=== PATIENT | female | born 1975 | race Asian ===

== ENCOUNTER 2023-11-02 11:39 | Inpatient (IN) | payer OTHER, MEDICAID, SELFPAY ==
[2023-11-02 11:46] VITALS: BP 120/86; PULSE 87; RESP 19; TEMP 36.6; O2SAT 97; BMI 26.3
--- NOTE | 2023-11-02 11:46 | ED.PSYCH ---
HPI - Psych General Chief Complaint: Psychiatric Symptoms Stated Complaint: Depression Schizophrenia Time Seen by Provider: 11/02/23 13:18 Source: patient Mode of arrival: ambulatory Limitations: no limitations History of Present Illness HPI Narrative: 48-year-old female history of anxiety, depression, polysubstance abuse on methadone recently moved from [place] presenting with anxiety, depression has been worsening. Patient reports she just wants to ?run away ?. She states she feels very overwhelmed and has been having worsening depression. Tells me that this is been ongoing for a few weeks acutely worsening over the past few days. 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 She is here with her recovery auditor and daughter which she trusts and which she considers her support group. Patient denies hallucinations. Denies drinking, smoking, drugs at this time. No medical complaints. Related Data Home Medications Medication Instructions Recorded Confirmed methadone 10 mg/mL oral 45 mg PO DAILY 11/02/23 11/02/23 concentrate (Methadone Intensol) Allergies Allergy/AdvReac Type Severity Reaction Status Date / Time SEAFOOD Allergy Unknown RASH Uncoded 11/02/23 11:46 Review of Systems Review of Systems: Yes all other systems are reviewed and are negative PMFSH Past Medical History Attestation statement: The following information was validated with the patient. Source: old records reviewed and nursing notes reviewed Social History Social History Smoked in Last 30 Days: No Use of substances other than those prescribed or required for medical reasons: No Advance Directives: No Advance Directives Information Provided: No Healthcare Proxy: No Guardian: No Physical Exam Vital Signs: Vital Signs: Last Vital Signs Temp 98 F 11/02/23 11:46 Pulse 87 11/02/23 11:46 Resp 16 11/02/23 12:18 BP 120/86 11/02/23 11:46 Pulse Ox 97 11/02/23 11:46 O2 Del Method Room Air 11/02/23 11:46 BMI result Body Mass Index 26.3 vss Appearance: Alert.? Oriented X3.? No acute distress.? Head: Normocephalic, atraumatic, no step-offs or deformities Eyes: Pupils equal, round and reactive to light.? ENT: Pharynx normal.? Neck: Normal inspection.? Neck supple.? CVS: Normal heart rate and rhythm.? Pulses normal.? Respiratory: No respiratory distress.? Breath sounds normal.? Abdomen: Soft and nontender.? Skin: Skin warm and dry.? Normal skin color.? Normal skin turgor.? Extremities: No lower extremity edema.? No calf ttp. 5/5 strength to bilateral upper and lower extremities Neuro: Oriented X 3.? No motor deficit.? No sensory deficit. CN 2-12 intact Course Course Course Narrative: RME:?48 yo female hx of bipolar., schizophrenia, and depression here for eval of severe depression x1day. admits to not eating, not sleeping. Denies illicit substance use. Denies etoh consumption. Denies SI/HI. taking all home medications as prescribed. her only physical complaint at present is occasional palpitations. denies chest pain or SOB. labs, ua, EKG ordered. plan for medical clearance Full HPI, ROS and PE to be performed by the primary ED provider. Reevaluation(s) Reevaluation #1: Patient was placed on a section 12 by psych. Patient will be an inpatient psychiatric bed search. CBC unremarkable. Chemistry no acute findings. Normal lipase. UA without infection. Urine negative. Urine toxicology negative. Ethanol negative At this time patient to be placed into observation to allow more time to be admitted to the psych unit Time: 15:29 Medications Administered Discontinued Medications Generic Name Dose Route Start Last Admin Trade Name Christianoq PRN Reason Stop Dose Admin Lorazepam 1 mg 11/02/23 14:44 11/02/23 14:48 Lorazepam 1 Mg Tablet PO 11/02/23 14:45 1 mg ONCE ONE Administration Medical Decision Making Medical Decision Making [facility] Narrative: 48 Old female presents with anxiety, depression worsening over the past few weeks. Physical exam benign. Concerns for depression and anxiety. Unlikely metabolic derangements, urinary infection Plan medical clearance evaluation by behavioral health Differential Diagnosis Differential Diagnoses: The differential diagnosis associated with the presentation includes Concerns for depression and anxiety. Unlikely metabolic derangements, urinary infection Admission/Observation Consideration of admission/observation: Escalation of care including admission/observation considered Likely secondary Consult Healthcare Provider Management of the patient was discussed with: Behavioral Health Provider Lab Data [facility] Lab Attestation statement: I reviewed the patient's lab results. 11/02/23 12:54 11/02/23 12:54 Labs: Lab Results 11/02/23 11/02/23 Range/Units 12:13 12:54 WBC 5.6 (4.8-10.8) X10*3/uL RBC 4.54 (4.20-5.50) X10*6/uL Hgb 13.5 (12.0-16.0) g/dl Hct 39.6 (37.0-47.0) % MCV 87.2 (80.0-98.0) fL MCH 29.7 (27.0-33.0) pg MCHC 34.1 (31.0-35.0) g/dl RDW 12.9 (11.0-16.0) % Plt Count 187 (160-400) X10*3/uL MPV 10.2 (9.4-12.3) fL Immature Gran % (Auto) 0.2 (0.0-0.4) % Neut % (Auto) 78.6 H (45-73) % Lymph % (Auto) 16.5 L (20-40) % Rapides % (Auto) 4.1 (2-11) % Eos % (Auto) 0.2 (0-4) % Baso % (Auto) 0.4 (0-2) % Lymph # (Auto) 0.9 L (1.2-4.9) X10*3/uL [place]ides # (Auto) 0.2 (0.1-1.2) X10*3/uL Eos # (Auto) 0.0 (0.0-0.4) X10*3/uL Baso # (Auto) 0.0 (0.0-0.2) X10*3/uL Abs Immat Gran (auto) 0.01 (0.00-0.03) X10*3/uL Absolute Neuts (auto) 4.4 (2.0-8.3) x10*3/uL Absolute Nucleated RBC 0.000 (0.0-0.012) X10*3/uL Nucleated RBC % (auto) 0.0 (0.0-0.2) /100WBC Sodium 138 (135-145) mmol/L Potassium 4.3 (3.3-5.1) mmol/L Chloride 104 (96-108) mmol/L Carbon Dioxide 29 (22-29) mmol/L Anion Gap 9 L (12-20) BUN 13 (9-16) mg/dL Creatinine 0.82 (0.5-1.4) mg/dL Estim Creat Clear Calc 64.1 Estimated GFR > 60 Random Glucose 86 (60-115) mg/dL Calcium 9.6 (8.4-10.2) mg/dL Magnesium 2.0 (1.6-2.6) mg/dL Lipase 18 (8-78) U/L Urine Color Yellow Urine Appearance Clear Urine pH 6.0 (5.0-9.0) Ur Specific [place] 1.010 (1.005-1.025) Urine Protein Negative (Neg-Trace) mg/dL Urine Glucose (UA) Negative (Negative) mg/dL Urine Ketones Negative (Negative) mg/dL Urine Blood Negative (Negative) Urine Nitrite Negative (Negative) Ur Leukocyte Esterase Trace H (Negative) Urine RBC 0-2 (0-2) /HPF Urine WBC 0-5 (0-5) /HPF Ur Squamous Epith Cells 0-2 (0-2) /HPF Urine Bacteria None Seen (None Seen) Hyaline Casts 0-2 (0-2) /LPF Urine Test NEGATIVE (NEGATIVE) Urine Opiates Screen Not Detected (Not Detect) Urine Fentanyl Screen Not Detected (Not Detect) Ur Barbiturates Screen Not Detected (Not Detect) Ur Phencyclidine Scrn Not Detected (Not Detect) Ur Amphetamines Screen Not Detected (Not Detect) U Benzodiazepines Scrn Not Detected (Not Detect) Urine Cocaine Screen Not Detected (Not Detect) U Marijuana (THC) Screen Not Detected (Not Detect) Ethyl Alcohol < 10 mg/dL Chronic Conditions Patient?s care impacted by: Other (Polysubstance abuse) Critical Care Time Critical Care Time Critical Care Time: No Discharge Plan Discharge Clinical Impression: Depression Patient Disposition: Still a Patient Prescriptions: No Action methadone [Methadone Intensol] 10 mg/mL Concentrate 45 mg PO DAILY Interventions: Alice-Suicide Risk Severity Scale Last Done: 11/02/23 12:18
--- NOTE | 2023-11-02 11:49 | ECG_ITS ---
Test Reason : palpitations Blood Pressure : / mmHG Vent. Rate : 079 BPM Atrial Rate : 079 BPM P-R Int : 154 ms QRS Dur : 076 ms QT Int : 374 ms P-R-T Axes : 068 065 048 degrees QTc Int : 428 ms Normal sinus rhythm Possible Left atrial enlargement Borderline ECG No previous ECGs available Referred By: Angelina Purvis Electronically Signed By:PEDRO JEREZ MD
[2023-11-02 12:18] VITALS: RESP 16
[2023-11-02 12:26] LABS: Appearance Urine Clear; Color Urine Yellow; Glucose Urine UA Negative (Negative); Leukocyte Esterase Urine Trace (Negative); Nitrite Urine Negative (Negative); UMIC TRIGGER UACC YES; UPreg QC Valid YES; Urine Blood Negative (Negative); Urine Ketones Negative (Negative); Urine Pregnancy NEGATIVE (NEGATIVE); Urine Protein Negative (Neg-Trace)
--- NOTE | 2023-11-02 12:26 | PC.NURSE ---
Patient awake and alert. skin pwd, resp even and non labored, speaking in full, clear sentences. reports having a hx of anxiety and schizophrenia and over the past 2 days she has been feeling very anxious. also reports auditory hallucinations and states that she can hear children talking. patient denies SI/HI. daughter is now at bedside
[2023-11-02 12:31] LABS: Amphetamine Screen Urine Not Detected (Not Detect); Bacteria Urine None Seen (None Seen); Barbiturates, Urine Not Detected (Not Detect); Benzodiazepines Screen Urine Not Detected (Not Detect); Cannabinoid Screen Urine Not Detected (Not Detect); Cocaine Screen Urine Not Detected (Not Detect); Fentanyl, urine Not Detected (Not Detect); Hyaline Casts Urine 0-2 /LPF (0-2); Opiate Screen Urine Not Detected (Not Detect); Phencyclidine Screen Urine Not Detected (Not Detect); RBC Urine 0-2 /HPF (0-2); Squamous Epithelial Cell Urine 0-2 /HPF (0-2); WBC Urine 0-5 /HPF (0-5)
[2023-11-02 12:58] LABS: MANUAL DIFF FLAG NO
[2023-11-02 13:00] LABS: Basophils Percent Auto 0.4 % (0-2); Eosinophils Percent Auto 0.2 % (0-4); Hematocrit 39.6 % (37.0-47.0); Hemoglobin 13.5 g/dl (12.0-16.0); Imm Gran Abs Auto 0.01 X10*3/uL (0.00-0.03); Imm Gran Pct Auto 0.2 % (0.0-0.4); Lymphocytes Absolute Auto 0.9 X10*3/uL (1.2-4.9); Lymphocytes Percent Auto 16.5 % (20-40); Mean Corpuscular HGB Conc 34.1 g/dl (31.0-35.0); Mean Corpuscular Hemoglobin 29.7 pg (27.0-33.0); Mean Corpuscular Volume 87.2 fL (80.0-98.0); Mean Platelet Volume 10.2 fL (9.4-12.3); Monocytes Absolute Auto 0.2 X10*3/uL (0.1-1.2); Monocytes Percent Auto 4.1 % (2-11); Neutrophils Absolute Auto 4.4 x10*3/uL (2.0-8.3); Neutrophils Percent Auto 78.6 % (45-73); Platelet Count 187 X10*3/uL (160-400); Red Blood Count 4.54 X10*6/uL (4.20-5.50); Red Cell Distribution Width 12.9 % (11.0-16.0); White Blood Count 5.6 X10*3/uL (4.8-10.8)
[2023-11-02 13:17] LABS: Anion Gap 9 (12-20); Blood Urea Nitrogen 13 mg/dL (9-16); Calcium 9.6 mg/dL (8.4-10.2); Carbon Dioxide 29 mmol/L (22-29); Chloride 104 mmol/L (96-108); Creatinine Clr Calc Pharmacy 64.1; Estimated Glomerular Filt Rate > 60; Ethanol < 10 mg/dL; Glucose Random 86 mg/dL (60-115); Lipase 18 U/L (8-78); Potassium 4.3 mmol/L (3.3-5.1); Sodium 138 mmol/L (135-145)
--- NOTE | 2023-11-02 13:28 | PC.NURSE ---
Patient receives methadone from [facility] in [place]. This RN called to verify dose, [place] location is currently closed. Mary at [facility] office verified patients last dose was Methadone 45mg administered today 11/02/23 at 10:25am. Methadone form faxed to pharmacy.
--- NOTE | 2023-11-02 13:36 | HE.PHANOTE ---
RE: methadone Verification from [facility] last dose 45mg 11/02/23 @3630
--- NOTE | 2023-11-02 14:20 | PC.NURSE ---
Dea, daughter, phone number [phone]
[2023-11-02] MEDS: LORazepam 1 MG TABLET PO (14:48)
--- NOTE | 2023-11-02 15:25 | MHC.CARE ---
Care Team evaluation complete; Pt is a voluntary inpatient bedsearch. Placed on a section 12A. ED provider, POD RN and Pt are aware of disposition.
[2023-11-02 17:06] VITALS: RESP 16
[2023-11-02 17:40] LABS: COVID-19 Test Negative (Negative); IDNOW Serial# 08D9AD1C
--- NOTE | 2023-11-02 18:18 | PHA.MEDREC ---
Pharmacy Consult ? Medication Reconciliation Pharmacy has reviewed the medication reconciliation completed by nursing.
--- NOTE | 2023-11-02 18:55 | MHC.CARE ---
RAD team conducted a statewide bed search. Referral being reviewed?by Cm you, [facility], [facility], [facility], [facility]emi Garcia, [facility], [facility], and [facility].? RAD team to f/u with facilities to see outcome
[2023-11-02] MEDS: QUEtiapine Fumarate 100 MG TABLET PO (23:07)
[2023-11-02] MEDS: PARoxetine HCL 30 MG TABLET PO (23:07)
[2023-11-02 23:27] VITALS: BP 109/78; PULSE 74; RESP 15; TEMP 36.6; O2SAT 95
--- NOTE | 2023-11-03 08:03 | PC.NURSE ---
Assumed care of patient 0700, patient appears to be sleeping, respirations even and unlabored, skin pwd no apparent distress. Plan of care for Sec 12, inpt bedsearch
[2023-11-03] MEDS: buPROPion HCl XL 300 MG TAB.ER.24H PO (08:29)
[2023-11-03] MEDS: methADONE HCl 20 MG/2 ML ORAL.CONC 45 MG PO (08:29)
--- NOTE | 2023-11-03 14:43 | MHC.CARE ---
RAD team conducted a statewide bed search. Referral being reviewed?by Forrest you [place], [place], [place].? RAD team to f/u with facilities to see outcome
[2023-11-03 16:40] VITALS: BP 121/79; PULSE 79; TEMP 36.7; O2SAT 94
--- NOTE | 2023-11-03 17:35 | PC.NURSE ---
Pt had uneventful day, ambulating around BH pod independently, able to make her needs known, offering no complaints to this RN. Pt now resting on bed, watching television in no apparent distress, respirations even and unlabored. Continue plan of care for inpt admission
[2023-11-03 20:12] VITALS: BP 94/73; PULSE 81; RESP 18; TEMP 37.3; O2SAT 98
[2023-11-03] MEDS: QUEtiapine Fumarate 100 MG TABLET PO (20:21)
[2023-11-03] MEDS: PARoxetine HCL 30 MG TABLET PO (20:21)
--- NOTE | 2023-11-03 20:57 | PC.NURSE ---
Assumed care of pt at 1900. PT resting quietly in bed, alert and oriented and in no acute distress. VSS- bp on low side will repeat in 1 hour. PT medicated as per NOV. PT requested and provided sandwich and crack. Safety precautions in place. Plan of care ongoing.
[2023-11-04 06:36] VITALS: BP 106/74; PULSE 76; RESP 15; TEMP 36.6; O2SAT 95
--- NOTE | 2023-11-04 06:56 | PC.NURSE ---
Assumed care of patient at 0700, pt appears to be sleeping, respirations even and unlabored, no apparent distress noted. continue plan of care inpt admission
[2023-11-04] MEDS: buPROPion HCl XL 300 MG TAB.ER.24H PO (08:11)
[2023-11-04] MEDS: methADONE HCl 20 MG/2 ML ORAL.CONC 45 MG PO (08:11)
--- NOTE | 2023-11-04 18:41 | MHC.CARE ---
RAD team conducted a statewide bed search. Referral being reviewed?by [facility] [place]. RAD team to f/u with facilities to see outcome
[2023-11-04 19:50] VITALS: BP 98/67; PULSE 86; RESP 18; TEMP 37.2; O2SAT 98
[2023-11-04] MEDS: PARoxetine HCL 30 MG TABLET PO (20:07)
[2023-11-04] MEDS: QUEtiapine Fumarate 100 MG TABLET PO (20:08)
--- NOTE | 2023-11-05 06:00 | PC.NURSE ---
Patient slept through the night, no distress observed/reported, medication compliant, no behavior issues, disposition per care team section 12 inpatient bed search, VSS, will continue to monitor.
[2023-11-05 06:06] VITALS: RESP 16
[2023-11-05] MEDS: buPROPion HCl XL 300 MG TAB.ER.24H PO (08:51)
[2023-11-05] MEDS: methADONE HCl 20 MG/2 ML ORAL.CONC 45 MG PO (08:51)
[2023-11-05 10:26] VITALS: BP 96/71; PULSE 80; RESP 16; TEMP 36.1; O2SAT 96
[2023-11-05 11:35] LABS: COVID-19 Test Negative (Negative); IDNOW Serial# 152EDE1D
[2023-11-05 14:08] VITALS: BP 101/73; PULSE 95; RESP 18; TEMP 36.4; O2SAT 100
[2023-11-05 17:16] VITALS: BP 100/63; PULSE 93; RESP 17; TEMP 36.8; O2SAT 94
[2023-11-05] MEDS: QUEtiapine Fumarate 100 MG TABLET PO (20:04)
[2023-11-05] MEDS: PARoxetine HCL 30 MG TABLET PO (20:04)
[2023-11-05 20:08] VITALS: BP 99/64; PULSE 90; RESP 18; TEMP 36.1; O2SAT 95
--- NOTE | 2023-11-05 22:27 | PC.ADMIT ---
Shamika arrived to the unit at 1400 on a Conditional Voluntary, sharps check done by prior RN. Upon approach Shamika is calm and pleasant, she reports she has been Struggling the last several months, I am a recovering addict, she reports being sober for eight months. She reports she lives with her sister and her as well as four of her sisters grandchildren, My son lives with us too. She reports feeling overwhelmed, I want to run, yell, reports she history of self cutting and jumping from a second floor in [place]. I've been doing good here, I've been working with a head boys golf coach, I have a director social welfare, therapist. Shamika starts crying, 'I don't want to feel like this, responds well to staff support, she reports endorsing anxiety ad depression, when asked if she had any thoughts of wanting to hurt self stated No, verbalized to look for staff if thoughts occur. Per assessment Shamika presented to [facility] due to symptoms of worsening anxiety and depression for the past few days, she states she moved to [place] from [place] in May 2023 and reports she has been decompensating, My sister's house is too loud, makes me nervous, she reports crying For no reason, hearing voices and having panic attacks.
[2023-11-06 08:11] VITALS: BP 99/65; PULSE 77; RESP 16; TEMP 36.6
[2023-11-06] MEDS: buPROPion HCl XL 300 MG TAB.ER.24H PO (08:14)
[2023-11-06] MEDS: methADONE HCl 20 MG/2 ML ORAL.CONC 45 MG PO (08:14)
[2023-11-06] MEDS: hydrOXYzine HCL 25 MG TABLET PO (08:20)
[2023-11-06] MEDS: Nicotine 7 MG PATCH.TD24 TRANSDERMA (10:01)
[2023-11-06] MEDS: LORazepam 0.5 MG TABLET PO ×2 (11:34→20:03)
--- NOTE | 2023-11-06 12:34 | P.HPPS_ITS ---
HPI Date of Service: 11/06/23 Chief Complaint: depression, anxiety Sources of Information: patient interviewed, chart reviewed and crisis/core team assessment reviewed HPI Subjective Notes: Rousseau Warning and Conditional Voluntary Medical Problems Affecting Mental Status: No Narrative: 48 yo [place] peaking woman seen with director of resource development for interview; Pt came to [facility] due to severe anxiety; she was seen by Care team and admitted to due to depression, severe anxiety, hearing voices and having panic attacks. She has had feelings of wanting tohurt heself by cutting. Pt states the symptoms have been happening for a few week but got much worse over past few days; She has had more trouble coping with stress and found herself feeling that she would yell and scream. She described heart racing, a burning feeling in he chest and stomach and feeling like she would start screaming. She denies hearing voices today. She reports not being able to sleep, She reports appetite intact. She has no outpatient psych providers per her report but [facility]. She reports a majoer stressor is that she lives with her sister , her sister's , four of her sister's grandchildren, and pts son- She says the house is very loud and she recently has felt more overwhelmed by all the noise and activity. Pt reports she is very depressed and anxious and cries for no reason. Past Psychiatric History: no inpt admissions known, pt [facility] she states no therapist or psychiatrist Medical Evaluation Reviewed: Yes medically cleared in ED Diagnostics Vital Signs (24Hr): Vital Signs - 24 hr 11/05/23 14:08 11/05/23 17:16 11/05/23 20:08 Temperature 97.5 F 98.3 F 97.0 F Pulse Rate 95 93 90 Respiratory Rate 18 17 18 Blood Pressure 101/73 100/63 99/64 Pulse Oximetry 100 94 95 Oxygen Delivery Method Room Air Room Air Room Air 11/06/23 08:11 Temperature 97.9 F Pulse Rate 77 Respiratory Rate 16 Blood Pressure 99/65 Pulse Oximetry Oxygen Delivery Method Room Air BMI result Body Mass Index 26.3 Labs 11/02/23 12:54 11/02/23 12:54 Labs: Laboratory Results - last 48 hr 11/05/23 11:05 COVID-19 ([facility]) Negative COVID-19 Clin Com See Note EKG EKG Comment: NS QTC 428 possible left atrial enlargement Meds/Allergies Meds Home Medications Medication Instructions Recorded Confirmed Type bupropion HCl 300 mg 24 hr tablet, 300 mg PO QAM 11/02/23 11/02/23 History extended release methadone 10 mg/mL oral 45 mg PO DAILY 11/02/23 11/02/23 History concentrate (Methadone Intensol) paroxetine HCl 30 mg tablet 30 mg PO BEDTIME 11/02/23 11/02/23 History quetiapine 100 mg tablet 100 mg PO QPM 11/02/23 11/02/23 History Allergies Allergies Allergy/AdvReac Type Severity Reaction Status Date / Time SEAFOOD Allergy Unknown RASH Uncoded 11/02/23 11:46 Mental Status Exam Mental Status Exam Patient Appearance: Appropriate Patient Orientation: Person, Place, Time and Situation Level of Consciousness: Awake Patient Behavior: Appropriate, Anxious and Poor Eye Contact Mood Description: Anxious and Sad Affect Description: Withdrawn, Anxious and Sad Patient Cognition Impaired: No Ability to Follow Directions: Good Speech Pattern: Clear Memory Description: Intact Hallucinations: Auditory Thought Process: Intact Thought Content: positive for Preoccupation and positive for Suicidal Ideation Judgement: Fair Assessment & Plan Assessment & Plan (1) Major depression, single episode: Status: Acute Code(s): F32.9 - Major depressive disorder, single episode, unspecified (2) Generalized anxiety disorder: Status: Acute Code(s): F41.1 - Generalized anxiety disorder Plan 48 yo [place] peaking woman seen with director of resource development for interview; Pt came to [facility] due to severe anxiety; she was seen by Care team and admitted to due to depression, severe anxiety, hearing voices and having panic attacks. She has had feelings of wanting tohurt heself by cutting. Pt states the symptoms have been happening for a few week but got much worse over past few days; She has had more trouble coping with stress and found herself feeling that she would yell and scream. She described heart racing, a burning feeling in he chest and stomach and feeling like she would start screaming. She denies hearing voices today. She reports not being able to sleep, She reports appetite intact. She has no outpatient psych providers per her report but has a counselor [facility]. She reports a majoer stressor is that she lives with her sister , her sister's , four of her sister's grandchildren, and pts son- She says the house is very loud and she recently has felt more overwhelmed by all the noise and activity. Pt reports she is very depressed and anxious and cries for no reason. plan CV 15 min checks reduce wellbutrin XL to 150mg QAM as pt reports most distressing symptoms is anxiety increase paxil to 40mg dailt add ativan 0.5mg TID until increase paxil is effective- anxiety reduced collateral contact d/c planning with team Patient educated on: diagnosis, medication risk/benefits and therapeutic strategies Reason for continued inpatient stay Substantial Risk for: harm to self, inability to function and rapid decompensation Statement Statement: I have reviewed the history and physical and performed a pertinent examination on my patient. No changes have occurred unless specified. If the History and Physical was not performed prior to admission, the Hospitalist's service will be consulted for completing the admission physical. Time Spent With Patient Time: Total time managing care of this patient today ____ minutes.
[2023-11-06 17:15] VITALS: BP 104/68; PULSE 88; RESP 16; TEMP 36.2; O2SAT 98
[2023-11-06] MEDS: QUEtiapine Fumarate 100 MG TABLET PO (20:02)
[2023-11-06] MEDS: PARoxetine HCL 40 MG TABLET PO (20:02)
[2023-11-07] MEDS: methADONE HCl 20 MG/2 ML ORAL.CONC 45 MG PO (08:36)
[2023-11-07] MEDS: buPROPion HCl XL 150 MG TAB.ER.24H PO (08:37)
[2023-11-07] MEDS: LORazepam 0.5 MG TABLET PO (08:37)
[2023-11-07] MEDS: Acetaminophen 325 MG TABLET 650 MG PO (08:50)
[2023-11-07 09:30] VITALS: BP 109/59; PULSE 80; RESP 18; TEMP 36.6; O2SAT 96
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
[2023-11-07] MEDS: Nicotine 7 MG PATCH.TD24 TRANSDERMA (10:15)
[2023-11-07] MEDS: Ibuprofen 600 MG TABLET PO (12:26)
[2023-11-07] MEDS: PARoxetine HCL 40 MG TABLET PO (19:47)
[2023-11-07] MEDS: QUEtiapine Fumarate 100 MG TABLET PO (19:47)
[2023-11-08] MEDS: Acetaminophen 325 MG TABLET 650 MG PO ×2 (06:29→15:12)
[2023-11-08] MEDS: buPROPion HCl XL 300 MG TAB.ER.24H PO (08:28)
[2023-11-08] MEDS: methADONE HCl 20 MG/2 ML ORAL.CONC 45 MG PO (08:28)
[2023-11-08] MEDS: Ibuprofen 600 MG TABLET PO ×2 (08:33→20:10)
[2023-11-08 08:39] VITALS: BP 125/72; PULSE 90; RESP 18; TEMP 36.2; O2SAT 96
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
[2023-11-08 11:00] VITALS: BMI 26.2
[2023-11-08 20:00] VITALS: BP 92/61; PULSE 92; RESP 18; TEMP 36.3; O2SAT 95
[2023-11-08] MEDS: PARoxetine HCL 40 MG TABLET PO (20:09)
[2023-11-08] MEDS: QUEtiapine Fumarate 100 MG TABLET PO (20:09)
[2023-11-08] MEDS: Prazosin HCL 1 MG CAPSULE PO (20:09)
[2023-11-08] MEDS: Magnesium Hydrox/Alum Hydrox 30 ML ORAL.SUSP PO (20:10)
[2023-11-08 20:30] VITALS: BP 104/61; PULSE 88; RESP 16
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
[2023-11-09] MEDS: methADONE HCl 20 MG/2 ML ORAL.CONC 45 MG PO (09:19)
[2023-11-09] MEDS: buPROPion HCl XL 300 MG TAB.ER.24H PO (09:20)
[2023-11-09 09:49] VITALS: BP 120/65; PULSE 98; RESP 18; TEMP 37.3; O2SAT 99
[2023-11-09] MEDS: QUEtiapine Fumarate 25 MG TABLET PO (12:50)
[2023-11-09] MEDS: Ibuprofen 600 MG TABLET PO (14:51)
[2023-11-09 19:03] LABS: Influenza A PCR POSITIVE (Negative); Influenza B PCR NEGATIVE (Negative); Resp Syncy Virus RNA Qual PCR NEGATIVE (Negative); SARS COV2 PCR INHOUSE NEGATIVE (Negative)
[2023-11-09 19:59] VITALS: BP 85/57; PULSE 95; RESP 18; TEMP 37; O2SAT 96
[2023-11-09] MEDS: QUEtiapine Fumarate 100 MG TABLET PO (20:32)
[2023-11-09] MEDS: PARoxetine HCL 40 MG TABLET PO (20:32)
[2023-11-10 08:35] VITALS: BP 94/63; PULSE 90; RESP 18; TEMP 37.4; O2SAT 92
[2023-11-10] MEDS: Multivitamin TABLET 1 TAB PO (08:39)
[2023-11-10] MEDS: methADONE HCl 20 MG/2 ML ORAL.CONC 45 MG PO (08:40)
[2023-11-10] MEDS: buPROPion HCl XL 300 MG TAB.ER.24H PO (08:40)
[2023-11-10] MEDS: Acetaminophen 325 MG TABLET 650 MG PO (09:27)
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
[2023-11-10 17:15] VITALS: BP 115/74; PULSE 76; RESP 16; TEMP 36.4; O2SAT 96
[2023-11-10] MEDS: PARoxetine HCL 40 MG TABLET PO (19:34)
[2023-11-10] MEDS: QUEtiapine Fumarate 100 MG TABLET PO (19:34)
[2023-11-10] MEDS: Prazosin HCL 1 MG CAPSULE PO (19:34)
[2023-11-11 09:10] VITALS: BP 93/55; PULSE 77; RESP 16; TEMP 36.4; O2SAT 96
[2023-11-11] MEDS: methADONE HCl 20 MG/2 ML ORAL.CONC 45 MG PO (09:12)
[2023-11-11] MEDS: Multivitamin TABLET 1 TAB PO (09:12)
[2023-11-11] MEDS: buPROPion HCl XL 300 MG TAB.ER.24H PO (09:12)
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
[2023-11-11 15:17] LABS: Thyroid Stimulating Hormone 1.55 uIU/mL (0.32-4.0)
[2023-11-11 15:25] LABS: Vitamin B12 541 pg/mL (200-900)
[2023-11-11 18:00] VITALS: BP 90/60; PULSE 80; RESP 18; TEMP 36.8; O2SAT 98
[2023-11-11] MEDS: QUEtiapine Fumarate 100 MG TABLET PO ×2 (19:52→20:08)
[2023-11-11] MEDS: PARoxetine HCL 40 MG TABLET PO (19:53)
[2023-11-12 08:24] VITALS: BP 94/46; PULSE 74; RESP 18; TEMP 36.6; O2SAT 95
[2023-11-12 09:27] VITALS: BP 117/74; PULSE 90; RESP 18; O2SAT 96
[2023-11-12] MEDS: buPROPion HCl XL 300 MG TAB.ER.24H PO (09:29)
[2023-11-12] MEDS: Multivitamin TABLET 1 TAB PO (09:29)
[2023-11-12] MEDS: methADONE HCl 20 MG/2 ML ORAL.CONC 45 MG PO (09:29)
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
[2023-11-12 20:00] VITALS: BP 110/67; PULSE 81; RESP 16; TEMP 36.3; O2SAT 94
[2023-11-12] MEDS: Prazosin HCL 1 MG CAPSULE PO (20:05)
[2023-11-12] MEDS: QUEtiapine Fumarate 100 MG TABLET PO (20:05)
[2023-11-12] MEDS: PARoxetine HCL 40 MG TABLET PO (20:05)
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
[2023-11-13] MEDS: buPROPion HCl XL 300 MG TAB.ER.24H PO (08:38)
[2023-11-13] MEDS: Multivitamin TABLET 1 TAB PO (08:38)
[2023-11-13] MEDS: methADONE HCl 20 MG/2 ML ORAL.CONC 45 MG PO (08:38)
[2023-11-13 09:18] VITALS: RESP 18
[2023-11-13] MEDS: Naloxone HCl Nasal TAKE HOME 4 MG SPRAY 8 MG NOSTRILALT (09:58)
[2023-11-18 15:42] LABS: VITAMIN D (1,25 OH) D3 56 pg/mL; Vit D (1,25-Dihydroxy) Total 56 pg/mL (18-72); Vitamin D (1,25 OH) D2 <8 pg/mL
== END 2023-11-13 11:29 | disposition home or self-care (01) | DRG 751 ==
LOC: HO.ED 11-05 12:57 → HO.PM5 11-05 13:50
PROVIDERS: Physician Assistant; Physician Assistant Medical; Psychiatry & Neurology Psychiatry; Admitting Provider Clinical Nurse Specialist Psychiatric/Mental Health, Adult; Emergency Provider Emergency Medicine; Visit Provider Psychiatry & Neurology Psychiatry
DX: F33.3 Major depressive disorder, recurrent, severe with psychotic symptoms (principal); R45.851 Suicidal ideations; F11.20 Opioid dependence, uncomplicated; F41.1 Generalized anxiety disorder; F17.210 Nicotine dependence, cigarettes, uncomplicated; Z71.6 Tobacco abuse counseling; Z79.899 Other long term (current) drug therapy
CPT/HCPCS: 0241U; 36415; 80048; 80307; 81001; 81025; 82607; 82652; 83690; 83735; 84443; 85025; 87635; 93005; 99285; S9485

== ENCOUNTER → 2023-11-02 11:49 | Outpatient (BNV) | payer MEDICAID, SELFPAY | PROVIDERS: Emergency Provider Emergency Medicine; Visit Provider Internal Medicine Cardiovascular Disease | DX: R00.2 Palpitations (principal) | CPT/HCPCS: 93010 ==

== ENCOUNTER → 2023-11-05 13:31 | Outpatient (BNV) | payer OTHER, SELFPAY | PROVIDERS: Admitting Provider Clinical Nurse Specialist Psychiatric/Mental Health, Adult; Emergency Provider Emergency Medicine; Visit Provider Clinical Nurse Specialist Psychiatric/Mental Health | DX: F32.3 Major depressive disorder, single episode, severe with psychotic features (principal); F41.1 Generalized anxiety disorder | CPT/HCPCS: 99231; 99232 ==

== ENCOUNTER 2023-12-30 13:11 | Emergency (ER) | payer MEDICAID, SELFPAY ==
--- NOTE | ~2023-12-30 | XR_ITS ---
EXAMINATION: XR SHOULDER, RIGHT CLINICAL INFORMATION: Pain. Fall 4 days ago COMPARISON: None available. TECHNIQUE: AP external rotation, Grashey, scapular Y, and axillary views of the right shoulder. FINDINGS: The bones and soft tissues are normal. No fracture. Glenohumeral and acromioclavicular alignment is anatomic with normal joint space. No abnormal soft tissue calcifications. XR/XR shoulder RT min 2V IMPRESSION: Normal right shoulder.
[2023-12-30 13:46] VITALS: BP 118/78; PULSE 69; RESP 18; TEMP 36.6; O2SAT 98; BMI 27.3
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
[2023-12-30] MEDS: Ketorolac Tromethamine 30 MG/ML VIAL IM (17:03)
[2023-12-30] MEDS: Lidocaine 4 % Patch ADH..PATCH 1 PATCH TRANSDERMA (17:03)
[2023-12-30 17:47] VITALS: BP 125/70; PULSE 62; O2SAT 99
[2023-12-30 17:58] VITALS: BP 118/78; PULSE 69; RESP 18; TEMP 36.6; O2SAT 98
== END 2023-12-30 17:58 | disposition home or self-care (01) ==
PROVIDERS: Emergency Provider Internal Medicine
DX: S43.401A Unspecified sprain of right shoulder joint, initial encounter (principal); M25.511 Pain in right shoulder; X58.XXXA Exposure to other specified factors, initial encounter; Y93.9 Activity, unspecified; Y92.9 Unspecified place or not applicable; Y99.8 Other external cause status
CPT/HCPCS: 29105; 73030; 96372; 99283; 99284; J1885

== ENCOUNTER 2024-01-17 09:26 | Outpatient (AMB) | payer MEDICAID, SELFPAY ==
--- NOTE | 2024-01-17 09:37 | A.OFFVIS_ITS ---
Intake Visit Reasons: New Pt - right shoulder pain, DOI 12/26/23 Intake Note: Soila is a 48 year old right hand dominant female who presents today as a new patient for a evaluation of her right shoulder pain, DOI 12/26/23. Patient reports that she tripped on her stairs causing her to fall on her right side. S he [place] [facility] [place] where x[place] were taken and referred to orthopedics. Currently she has pain with AODL. Limited ROM. Her pain starts in her shoulder and radiates into her bicep area. 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: Sonu ID [id number] Allergies SEAFOOD Allergy (Unknown, Uncoded 01/17/24 09:56) RASH Medication List - Last Reconciled 01/17/24 by Anna Soto PA-C bupropion HCl XL 300 mg PO QAM 30 days lidocaine 5% (Lidoderm) 1 patch topical DAILY methadone (Methadone Intensol) 45 mg PO DAILY nicotine 7 mg transdermal DAILY PRN 28 days oxycodone 5 mg PO Q8H PRN paroxetine HCl 40 mg PO DAILY 30 days prazosin 1 mg See Protocol PO BEDTIME 30 days quetiapine 100 mg PO QPM 30 days HPI HPI New Pt - right shoulder pain, DOI 12/26/23: Details: 48-year-old right hand dominant female who presents to the office today with an [employer] for evaluation of right shoulder pain after tripping over the stairs and landing on her right side, 12/26/23. She was seen at ED where x-rays were performed and she was referred to our office. She currently states she has no improvement in her symptoms and continues to have limited ROM as well as pain at her shoulder with AODL. Her pain radiates to the bicep area. She is unable to lift her arm due to the pain. [facility] Surgical History (Updated 01/17/24 @ 09:53 by CHRISTOPHER Lino) History of shoulder surgery Social History (Updated 01/17/24 @ 09:49 by CHRISTOPHER Lino) Household Members: Family Household Members Other:: Reports she lives with 8 people in sister's house. Housing: Apartment Do you presently have visiting nurse or other home services: No Patient Tobacco Use Status: Current everyday Tobacco user Tobacco use type: Cigarette e-Cigarette/Vaping Use: Former Use service: No Current occupational status: unemployed Current occupation: right hand dominant Sexual orientation: Straight/Heterosexual Review of Systems Const All systems reviewed & are unremarkable except as noted in HPI and below Physical Exam Const General: cooperative, healthy appearing, comfortable, no acute distress, well developed and alert Orientation/consciousness: patient oriented x3 HEENT Head: Yes normal to inspection, Yes normocephalic and Yes atraumatic Eyes General: appearance normal, both eyes and all related structures Resp Effort & Inspection: normal respiratory effort and able to speak in complete sentences Cardio Rate: regular rate Peripheral pulses: Peripheral pulses 2+ throughout GI Palpation (GI): Soft to palpation Skin Lesions: no lesions Rashes: no rashes Neuro General: patient oriented x3 Extrem Other: Right shoulder normal to inspection. Tenderness over the bicipital groove and along the deltoid region of the shoulder. Forward flexion to 175, external rotation to 90, internal rotation to S1. 5/5 RTC strength. Negative Whyte and cross body abduction. NVI. Results Reviewed Results Reviewed: Xrays were obtained in the office today and personally reviewed by me of the right shoulder negative for acute fracture or dislocations Assessment & Plan Assessment & Plan (1) Tendinitis of right rotator cuff: Code(s): M75.81 - Other shoulder lesions, right shoulder Category: Medical Plan We discussed options which include PT, NSAIDs and injections. The patient will defer on the injection today and proceed with PT and NSAIDs. If symptoms persist, the patient will contact me for an injection, otherwise, PRN. Orders: Orders PT Evaluation and Treatment Today M75.81 - Other shoulder lesions, right shoulder Patient Instructions: Scribed for Anna Soto PA-C, by jennifer Whaley scribe, on 01/17/2024 at 10:00 AM EST. IAnna PA-C, have personally reviewed and agree with the information entered by the scribe. Coding Level of Care Code New Pt Level 3 (49338) Diagnoses Tendinitis of right rotator cuff M75.81
== END 2024-01-17 11:11 | disposition home or self-care (01) ==
PROVIDERS: Visit Provider Physician Assistant
DX: M75.81 Other shoulder lesions, right shoulder (principal)
CPT/HCPCS: 99203

== ENCOUNTER → 2024-01-17 09:26 | Outpatient (BNVA) | payer MEDICAID, SELFPAY | PROVIDERS: Visit Provider Physician Assistant | DX: M75.81 Other shoulder lesions, right shoulder (principal) | CPT/HCPCS: 99212 ==

== ENCOUNTER 2024-02-11 07:35 | Outpatient (REF) | payer MEDICAID, SELFPAY ==
--- NOTE | ~2024-02-11 | XR_ITS ---
EXAMINATION: XR SHOULDER, LEFT CLINICAL INFORMATION: Pain in left shoulder COMPARISON: None available. TECHNIQUE: AP neutral, scapular Y, and axillary views of the left shoulder. FINDINGS: The patient is status post ORIF with sideplate and multiple screws in the humeral head and proximal shaft of the of the humerus. The second highest horizontal screw in the shaft of the humerus extends beyond the cortex. No acute fracture. Glenohumeral and acromioclavicular alignment is anatomic with normal glenohumeral joint space. There is slight elevation of the distal clavicle with respect to the acromium. No abnormal soft tissue calcifications. XR/XR shoulder LT min 2V IMPRESSION: 1. No acute fracture. 2. Status post ORIF of the humeral head and proximal shaft of the humerus. The second highest horizontal screw in the shaft of the humerus extends beyond the cortex.
== END 2024-02-11 07:36 | disposition home or self-care (01) ==
LOC: HO.HOSX 07:35
PROVIDERS: Visit Provider Physician Assistant
DX: M75.82 Other shoulder lesions, left shoulder (principal)
CPT/HCPCS: 73030; 99212

== ENCOUNTER 2024-02-11 11:03 | Outpatient (AMB) | payer MEDICAID, SELFPAY ==
--- NOTE | 2024-02-11 11:41 | MHC.OFFVIS ---
Vital Signs 02/11/24 11:44 Height 4 ft 11 in Weight 135 lb BMI 27.3 Intake Visit Reasons: new prob/left shoulder/arm pain Intake Note: Carina a 48 year old female who presents today for an evaluation of left shoulder/arm pain. Allergies SEAFOOD Allergy (Unknown, Uncoded 02/11/24 11:44) RASH HPI HPI new prob/left shoulder/arm pain: Details: 48-year-old female who presents to the office today for evaluation of left shoulder pain. She states she has pain in her left shoulder that is aggravated at night and occasionally with lifting. She denies any injury and has not had physical therapy for her left shoulder. She has a history of right shoulder pain. [facility] Surgical History (Updated 01/17/24 @ 09:53 by CHRISTOPHER Lino) History of shoulder surgery Social History Household Members: Family Household Members Other:: Reports she lives with 8 people in sister's house. Housing: Apartment Do you presently have visiting nurse or other home services: No Patient Tobacco Use Status: Current everyday Tobacco user Tobacco use type: Cigarette e-Cigarette/Vaping Use: Former Use service: No Current occupational status: unemployed Current occupation: right hand dominant Sexual orientation: Straight/Heterosexual Review of Systems Const All systems reviewed & are unremarkable except as noted in HPI and below Physical Exam Vital Signs: BMI result Body Mass Index 27.3 Extrem Other: Left shoulder normal to inspection. Tenderness over the bicipital groove and along the deltoid region of the shoulder. Forward flexion to 175, external rotation to 90, internal rotation to S1. 5/5 RTC strength. Negative Whyte and cross body abduction. NVI. Results Reviewed Results Reviewed: Xrays were obtained in the office today and personally reviewed by me of the left shoulder show intact hardware Assessment & Plan Assessment & Plan (1) Tendonitis of left rotator cuff: Code(s): M75.82 - Other shoulder lesions, left shoulder Category: Medical Plan We discussed options which include PT, NSAIDs and injections. The patient will defer on the injection today and proceed with PT and NSAIDs. If symptoms persist, the patient will contact me for an injection, otherwise, PRN. Orders: Orders XR shoulder LT min 2V Today M25.512 - Pain in left shoulder PT Evaluation and Treatment Today M75.82 - Other shoulder lesions, left shoulder Patient Instructions: Scribed for Anna Soto PA-C, by Andrey Quijano esthetician and manager medical spa, on 02/11/2024 at 11:30 AM EST.? I, Anna Soto PA-C, have personally reviewed and agree with the information entered by the scribe. Coding Level of Care Code Est Pt Level 3 (15109) Diagnoses Tendonitis of left rotator cuff M75.82
[2024-02-11 11:44] VITALS: BMI 27.3
== END 2024-02-11 11:48 | disposition home or self-care (01) ==
PROVIDERS: PCP Internal Medicine; Visit Provider Physician Assistant
DX: M75.82 Other shoulder lesions, left shoulder (principal)
CPT/HCPCS: 99213

== ENCOUNTER 2024-02-29 13:59 | Inpatient (IN) | payer MEDICAID, OTHER, SELFPAY ==
--- NOTE | 2024-02-29 14:03 | ED_ITS ---
HPI - General Adult General Chief complaint: Psychiatric Symptoms Stated complaint: BP high Time Seen by Provider: 02/29/24 15:00 Source: patient Mode of arrival: ambulatory Limitations: no limitations History of Present Illness ED Provider: YAKELIN MALDONADO narrative: 48 yo female with PMH of depression here with c/o AH, depression and insomnia wants to talk to crisis. No SI/HI. MD complaint: AH, depression, anxiety Onset (ago): week(s) (1) Radiation: non-radiation Severity: moderate Relieving factors: none Exacerbating factors: other Associated symptoms: other (insomnia anxiety AH) Treatments prior to arrival: none Related Data Home Medications ?Medication ?Instructions ?Recorded ?Confirmed methadone 10 mg/mL oral 45 mg PO DAILY 11/02/23 01/17/24 concentrate (Methadone Intensol) Previous Rx's ?Medication ?Instructions ?Recorded bupropion HCl 300 mg 24 hr tablet, 300 mg PO QAM 30 days #30 tabs 11/12/23 extended release nicotine 7 mg/24 hr daily 7 mg transdermal DAILY PRN 11/12/23 transdermal patch nicotine cravings 28 days #28 ea paroxetine HCl 40 mg tablet 40 mg PO DAILY 30 days #30 tabs 11/12/23 prazosin 1 mg capsule 1 mg PO BEDTIME 30 days #30 caps 11/12/23 quetiapine 100 mg tablet 100 mg PO QPM 30 days #30 tabs 11/12/23 lidocaine 5 % topical patch 1 patch topical DAILY #15 ea 12/30/23 (Lidoderm) oxycodone 5 mg tablet 5 mg PO Q8H PRN pain (scale score 12/30/23 7-10) #4 tabs Allergies Allergy/AdvReac Type Severity Reaction Status Date / Time seafood Allergy Intermediate Rash Verified 02/29/24 14:06 Review of Systems 2 Review of Systems: Constitutional : No Fever, No Chills ENT/Mouth : No Ear Pain, No Nasal Congestion, No sore throat Eyes: No Eye Pain, No Swelling, No Redness Cardiovascular : No Chest Pain, No SOB Respiratory : No Cough, No Sputum, No Dyspnea Gastrointestinal : No Nausea, No Vomiting, No Diarrhea, No Hematochezia, No Melena Genitourinary : No Dysuria, No Urinary Frequency, No Hematuria Musculoskeletal : No Myalgias Skin : No Skin Lesions, No rash Neuro : No Weakness, No Numbness, No Paresthesias, No Dizziness, No Headache Psych : positive Anxiety, positive Depression, no SI/HI, pos AH All other systems reviewed and are negative [facility] Past Medical History Attestation statement: The following information was validated with the patient. Source: old records reviewed Medical History Generalized anxiety disorder Major depression, single episode Surgical History History of shoulder surgery Social History Social History Household Members: Family Household Members Other:: Reports she lives with 8 people in sister's house. Housing: Apartment Do you presently have visiting nurse or other home services: No Patient Tobacco Use Status: Current everyday Tobacco user Tobacco use type: Cigarette e-Cigarette/Vaping Use: Former Use Advance Directives: No Advance Directives Information Provided: No Do you have a plan to hurt others: No Plan service: No Current occupational status: unemployed Current occupation: right hand dominant Sexual orientation: Straight/Heterosexual Physical Exam ED Vital Signs: Vital Signs - 24 hr 02/29/24 14:04 Temperature 96.9 F Pulse Rate 78 Respiratory Rate 18 Blood Pressure 139/92 H Pulse Oximetry 98 Oxygen Delivery Method Room Air BMI result Body Mass Index 27.8 Appearance: Alert. Oriented X3. No acute distress. anxious and tearful Eyes: Pupils equal, round and reactive to light. ENT: Pharynx normal. Neck: Normal inspection. Neck supple. CVS: Normal heart rate and rhythm. Pulses normal. Respiratory: No respiratory distress. Breath sounds normal. Abdomen: Soft and nontender. Skin: Skin warm and dry. Normal skin color. Normal skin turgor. Extremities: No lower extremity edema. No calf ttp Neuro: Oriented X 3. No motor deficit. No sensory deficit. CN2-12 intact Course Course Course Narrative: RME performed by Мария Stewart PA-C. Patient is a 48 year old assigned female at presenting to the emergency department with depression, hearing voices, no appetite, and not sleeping. Patient states she is feeling more depressed with no suicidal or homicidal ideation. Patient states that she is hearing voices and having trouble sleeping. Detailed physical exam and review of systems are deferred to the operations supervisor chemical cleaning. Patient placed back in the waiting room pending room availability. Medical Decision Making Medical Decision Making [facility] Narrative: 48 yo female with PMH of depression here with c/o AH and depression and not sleeping she has no medical complaints or concerns. At this time will obtain labs and refer to CARE team Differential Diagnosis Differential Diagnoses: The differential diagnosis associated with the presentation includes drug abuse, depression Admission/Observation Consideration of admission/observation: Escalation of care including admission/observation considered physician observation started at 311pm pending CARE team input Consult Healthcare Provider Management of the patient was discussed with: [facility] Provider inpatient bed search Lab Data [facility] Lab Attestation statement: I reviewed the patient's lab results. 02/29/24 14:22 02/29/24 14:22 Labs: Lab Results 02/29/24 02/29/24 02/29/24 Range/Units 14:12 14:13 14:22 RBC 5.23 (4.20-5.50) X10*6/uL Hgb 15.1 (12.0-16.0) g/dl Hct 45.2 (37.0-47.0) % MCV 86.4 (80.0-98.0) fL MCH 28.9 (27.0-33.0) pg MCHC 33.4 (31.0-35.0) g/dl RDW 13.3 (11.0-16.0) % MPV Not Reportable Sodium 137 (135-145) mmol/L Potassium 4.8 (3.3-5.1) mmol/L Chloride 107 (96-108) mmol/L Carbon Dioxide 20 L (22-29) mmol/L Anion Gap 15 (12-20) BUN 16 (9-16) mg/dL Creatinine 0.74 (0.5-1.4) mg/dL Estim Creat Clear Calc 73.1 Estimated GFR > 60 Random Glucose 105 (60-115) mg/dL Calcium 9.9 (8.4-10.2) mg/dL Total Bilirubin 0.7 (0.0-1.0) mg/dL AST 33 H (5-31) U/L ALT 21 (0-31) U/L Alkaline Phosphatase 70 (39-117) U/L Total Protein 8.3 H (6.5-8.0) g/dL Albumin 4.0 (3.5-5.0) g/dL Urine Color Yellow Urine Appearance Clear Urine pH 5.5 (5.0-9.0) Ur Specific [place] >= 1.030 H (1.005-1.025) Urine Protein Negative (Neg-Trace) mg/dL Urine Glucose (UA) Negative (Negative) mg/dL Urine Ketones Trace (Negative) mg/dL Urine Blood Large (3+) H (Negative) Urine Nitrite Negative (Negative) Ur Leukocyte Esterase Small (1+) H (Negative) Urine RBC 3-5 H (0-2) /HPF Urine WBC 0-5 (0-5) /HPF Ur Squamous Epith Cells 3-5 (0-2) /HPF Urine Bacteria 1+ (None Seen) Hyaline Casts 0-2 (0-2) /LPF Urine Test NEGATIVE (NEGATIVE) Salicylates < 5.0 L (15-30) mg/dL Urine Opiates Screen Not Detected (Not Detect) Ur Buprenorphine Scrn Not Detected (Not Detect) ng/mL Ur Oxycodone Screen Not Detected (Not Detect) ng/mL Urine Methadone Screen Positive H (Not Detect) ng/mL Urine Fentanyl Screen Not Detected (Not Detect) Acetaminophen < 3 (<30) mcg/mL Ur Barbiturates Screen Not Detected (Not Detect) Ur Phencyclidine Scrn Not Detected (Not Detect) Ur Amphetamines Screen Not Detected (Not Detect) U Benzodiazepines Scrn Not Detected (Not Detect) Urine Cocaine Screen POSITIVE H (Not Detect) U Marijuana (THC) Screen Not Detected (Not Detect) Ethyl Alcohol < 10 mg/dL COVID-19 (ALBIN) Negative (Negative) COVID-19 Clin Com See Note External Record Review External record reviewed: Office record Discharge Plan Discharge Clinical Impression: Depression Qualifiers: Depression Type: unspecified Qualified Code(s): F32.A - Depression, unspecified Patient Disposition: Still a Patient Prescriptions: No Action methadone [Methadone Intensol] 10 mg/mL Concentrate 45 mg PO DAILY nicotine 7 mg/24 hr Patch 24 Hour 7 mg transdermal DAILY PRN (Reason: nicotine cravings) 28 Days Qty: 28 0RF prazosin 1 mg Capsule 1 mg PO BEDTIME 30 Days Qty: 30 0RF Protocol: Hold for SBP< HOLD for SBP < : 90 quetiapine 100 mg tablet 100 mg PO QPM 30 Days Qty: 30 0RF paroxetine HCl 40 mg tablet 40 mg PO DAILY 30 Days Qty: 30 0RF bupropion HCl 300 mg tablet extended release 24 hr 300 mg PO QAM 30 Days Qty: 30 0RF lidocaine [Lidoderm] 5 % adhesive patch,medicated 1 patch topical DAILY Qty: 15 0RF Rx Instructions: leave on most painful area for up to 12 hrs oxycodone 5 mg tablet 5 mg PO Q8H PRN (Reason: pain (scale score 7-10)) Qty: 4 0RF Rx Instructions: Partial Fill upon patient request. Print Language: Maltese
[2024-02-29 14:04] VITALS: BP 139/92; PULSE 78; RESP 18; TEMP 36.1; O2SAT 98; BMI 27.8
[2024-02-29 14:29] LABS: Appearance Urine Clear; Color Urine Yellow; Glucose Urine UA Negative (Negative); Leukocyte Esterase Urine Small (1+) (Negative); Nitrite Urine Negative (Negative); PH 5.5 (5.0-9.0); Specific Gravity - Urine >= 1.030 (1.005-1.025); UMIC TRIGGER UA YES; Urine Blood Large (3+) (Negative); Urine Ketones Trace mg/dL (Negative); Urine Protein Negative (Neg-Trace)
[2024-02-29 14:30] LABS: UPreg QC Valid YES; Urine Pregnancy NEGATIVE (NEGATIVE)
[2024-02-29 14:39] LABS: Amphetamine Screen Urine Not Detected (Not Detect); Barbiturates, Urine Not Detected (Not Detect); Benzodiazepines Screen Urine Not Detected (Not Detect); Buprenorphine Scr Not Detected (Not Detect); Cannabinoid Screen Urine Not Detected (Not Detect); Cocaine Screen Urine POSITIVE (Not Detect); Fentanyl, urine Not Detected (Not Detect); Methadone Screen, Urine Positive (Not Detect); Opiate Screen Urine Not Detected (Not Detect); Oxycodone Screen Urine Not Detected (Not Detect); Phencyclidine Screen Urine Not Detected (Not Detect)
[2024-02-29 14:40] LABS: Bacteria Urine 1+ (None Seen); Hyaline Casts Urine 0-2 /LPF (0-2); WBC Urine 0-5 /HPF (0-5)
[2024-02-29 14:43] LABS: Acetaminophen LAB < 3 mcg/mL (<30); Alanine Aminotransferase 21 U/L (0-31); Alkaline Phosphatase 70 U/L (39-117); Anion Gap 15 (12-20); Aspartate Amino Transferase 33 U/L (5-31); Bilirubin Total 0.7 mg/dL (0.0-1.0); Blood Urea Nitrogen 16 mg/dL (9-16); Calcium 9.9 mg/dL (8.4-10.2); Carbon Dioxide 20 mmol/L (22-29); Chloride 107 mmol/L (96-108); Creatinine Clr Calc Pharmacy 73.1; Estimated Glomerular Filt Rate > 60; Ethanol < 10 mg/dL; Glucose Random 105 mg/dL (60-115); Potassium 4.8 mmol/L (3.3-5.1); Salicylate < 5.0 mg/dL (15-30); Sodium 137 mmol/L (135-145); Total Protein 8.3 g/dL (6.5-8.0)
[2024-02-29 14:47] LABS: COVID-19 Test Negative (Negative); IDNOW Serial# 152EDE1D
[2024-02-29 15:45] LABS: MANUAL DIFF FLAG NO
[2024-02-29 16:53] LABS: Basophils Percent Auto 0.6 % (0-2); Eosinophils Absolute Auto 0.1 X10*3/uL (0.0-0.4); Eosinophils Percent Auto 1.7 % (0-4); Hematocrit 38.3 % (37.0-47.0); Hemoglobin 13.1 g/dl (12.0-16.0); Imm Gran Abs Auto 0.01 X10*3/uL (0.00-0.03); Imm Gran Pct Auto 0.3 % (0.0-0.4); Lymphocytes Percent Auto 26.8 % (20-40); Mean Corpuscular HGB Conc 34.2 g/dl (31.0-35.0); Mean Corpuscular Hemoglobin 29.3 pg (27.0-33.0); Mean Corpuscular Volume 85.7 fL (80.0-98.0); Mean Platelet Volume 11.6 fL (9.4-12.3); Monocytes Absolute Auto 0.5 X10*3/uL (0.1-1.2); Monocytes Percent Auto 12.7 % (2-11); Neutrophils Absolute Auto 2.1 x10*3/uL (2.0-8.3); Neutrophils Percent Auto 57.9 % (45-73); Platelet Count 160 X10*3/uL (160-400); Red Blood Count 4.47 X10*6/uL (4.20-5.50); Red Cell Distribution Width 13.4 % (11.0-16.0); White Blood Count 3.6 X10*3/uL (4.8-10.8)
[2024-02-29 17:16] VITALS: RESP 16
--- NOTE | 2024-02-29 18:07 | HE.PHANOTE ---
Re Methadone Pt gets 45mg from [facility], Last given on 02/28/24 @1047. Pt was also given 12 take home bottles. Per pt, med administered for the day.
--- NOTE | 2024-02-29 18:13 | PC.NURSE ---
RE med rec: Methadone bottles with pharmacy, dose confirmation verified with N Patient reports she takes her wellbutrin, prazosin, seroquel intermittently without any specific schedule. It is noted that the patient has not been prescribed these medications in quite some time but given the intermittent self dosing, it makes sense that she still has some left
[2024-02-29 20:07] VITALS: BP 100/77; PULSE 68; RESP 20; TEMP 36.7; O2SAT 98
[2024-02-29 20:17] VITALS: BP 100/77
[2024-02-29] MEDS: Prazosin HCL 1 MG CAPSULE PO (20:17)
[2024-02-29] MEDS: buPROPion HCl XL 300 MG TAB.ER.24H PO (20:17)
[2024-02-29] MEDS: QUEtiapine Fumarate 100 MG TABLET PO (20:18)
[2024-03-01 03:06] VITALS: BP 101/68; PULSE 84; TEMP 36.3; O2SAT 94
--- NOTE | 2024-03-01 06:45 | PC.NURSE ---
Patient slept through the night, no distress observed/reported, meds and meals compliant, disposition section 12 inpatient bed search, VSS, will continue to monitor
--- NOTE | 2024-03-01 07:05 | PC.NURSE ---
Assumed care of patient at 0645. Patient is observed resting quietly in their bed. No unsafe behaviors observed at this time. No signs of distress observed, breathing is even and unlabored.
[2024-03-01] MEDS: methADONE HCl 20 MG/2 ML ORAL.CONC 45 MG PO (08:38)
[2024-03-01] MEDS: buPROPion HCl XL 300 MG TAB.ER.24H PO (08:39)
[2024-03-01 08:44] VITALS: BP 100/79; PULSE 69; RESP 16; TEMP 36.8; O2SAT 98
--- NOTE | 2024-03-01 14:57 | MHC.EDTECH ---
Patient calm very pleasant patient took a shower gave her something to eat.
[2024-03-01 16:44] VITALS: BP 109/79; PULSE 73; RESP 18; TEMP 36.8; O2SAT 98
[2024-03-01 19:42] VITALS: BP 100/69
[2024-03-01] MEDS: QUEtiapine Fumarate 100 MG TABLET PO (19:42)
[2024-03-01] MEDS: Prazosin HCL 1 MG CAPSULE PO (19:42)
[2024-03-01 19:47] VITALS: BP 100/68; PULSE 79; RESP 16; TEMP 36.7; O2SAT 98
[2024-03-02 00:29] VITALS: BP 105/71; PULSE 65; RESP 16; TEMP 36.3; O2SAT 97
[2024-03-02 06:00] VITALS: BP 109/62; PULSE 65; RESP 20; TEMP 36.7; O2SAT 95
[2024-03-02] MEDS: methADONE HCl 20 MG/2 ML ORAL.CONC 45 MG PO (09:11)
[2024-03-02] MEDS: buPROPion HCl XL 300 MG TAB.ER.24H PO (09:11)
[2024-03-02 11:00] VITALS: BP 108/63; PULSE 88; RESP 16; TEMP 36.7; O2SAT 97
[2024-03-02 11:33] VITALS: BMI 27.3
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
[2024-03-02 20:00] VITALS: BP 109/71; PULSE 88; RESP 16; TEMP 36.9; O2SAT 97
[2024-03-02 20:35] VITALS: BP 125/70
[2024-03-02] MEDS: Prazosin HCL 1 MG CAPSULE PO (20:35)
[2024-03-02] MEDS: QUEtiapine Fumarate 100 MG TABLET PO (20:37)
[2024-03-03 08:00] VITALS: BP 109/72; PULSE 68; RESP 16; TEMP 36.1; O2SAT 98
[2024-03-03] MEDS: buPROPion HCl XL 300 MG TAB.ER.24H PO (09:42)
[2024-03-03] MEDS: methADONE HCl 20 MG/2 ML ORAL.CONC 45 MG PO (09:44)
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
[2024-03-03] MEDS: Nicotine 21 MG PATCH.TD24 TRANSDERMA (14:46)
[2024-03-03] MEDS: Acetaminophen 325 MG TABLET 650 MG PO (14:51)
[2024-03-03] MEDS: hydrOXYzine HCL 25 MG TABLET PO ×2 (16:12→21:07)
[2024-03-03] MEDS: FLUoxetine HCl 10 MG CAPSULE PO (18:14)
[2024-03-03 20:00] VITALS: BP 100/66; PULSE 87; RESP 18; TEMP 36.4; O2SAT 97
[2024-03-03 21:06] VITALS: BP 100/86
[2024-03-03] MEDS: Prazosin HCL 1 MG CAPSULE PO (21:06)
[2024-03-03] MEDS: QUEtiapine Fumarate 100 MG TABLET PO (21:07)
[2024-03-03] MEDS: traZODone HCL 50 MG TABLET PO (21:07)
[2024-03-04 08:00] VITALS: BP 97/57; PULSE 74; RESP 18; TEMP 36.3; O2SAT 98
[2024-03-04] MEDS: FLUoxetine HCl 10 MG CAPSULE PO (08:59)
[2024-03-04] MEDS: buPROPion HCl XL 300 MG TAB.ER.24H PO (08:59)
[2024-03-04] MEDS: methADONE HCl 20 MG/2 ML ORAL.CONC 45 MG PO (08:59)
[2024-03-04] MEDS: Nicotine 21 MG PATCH.TD24 TRANSDERMA (09:03)
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
[2024-03-04 21:00] VITALS: BP 106/66; PULSE 88; RESP 14; TEMP 36.7; O2SAT 95
[2024-03-04 21:39] VITALS: BP 106/66
[2024-03-04] MEDS: Prazosin HCL 1 MG CAPSULE PO (21:39)
[2024-03-04] MEDS: traZODone HCL 50 MG TABLET PO (21:39)
[2024-03-04] MEDS: hydrOXYzine HCL 25 MG TABLET PO (21:40)
[2024-03-04] MEDS: QUEtiapine Fumarate 100 MG TABLET PO (21:40)
[2024-03-05 09:25] VITALS: BP 107/62; PULSE 68; RESP 18; TEMP 36.3; O2SAT 96
[2024-03-05] MEDS: buPROPion HCl XL 300 MG TAB.ER.24H PO (09:25)
[2024-03-05] MEDS: FLUoxetine HCl 10 MG CAPSULE PO (09:25)
[2024-03-05] MEDS: methADONE HCl 20 MG/2 ML ORAL.CONC 45 MG PO (09:25)
[2024-03-05] MEDS: Nicotine 21 MG PATCH.TD24 TRANSDERMA (09:27)
[2024-03-05 20:00] VITALS: BP 96/61; PULSE 79; RESP 16; TEMP 36.4; O2SAT 95
[2024-03-05] MEDS: Prazosin HCL 1 MG CAPSULE PO (21:42)
[2024-03-05] MEDS: QUEtiapine Fumarate 100 MG TABLET PO (21:42)
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
[2024-03-06 07:00] VITALS: BMI 27.6
[2024-03-06] MEDS: methADONE HCl 20 MG/2 ML ORAL.CONC 45 MG PO (09:42)
[2024-03-06] MEDS: buPROPion HCl XL 300 MG TAB.ER.24H PO (09:42)
[2024-03-06] MEDS: FLUoxetine HCl 20 MG CAPSULE PO (09:42)
[2024-03-06] MEDS: Nicotine 21 MG PATCH.TD24 TRANSDERMA (09:44)
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
[2024-03-06 10:23] VITALS: BP 113/69; PULSE 73; RESP 16; TEMP 36.6; O2SAT 97
[2024-03-06 20:00] VITALS: BP 93/51; PULSE 85; RESP 14; TEMP 36.4; O2SAT 96
[2024-03-06] MEDS: QUEtiapine Fumarate 100 MG TABLET PO (21:43)
[2024-03-06] MEDS: Prazosin HCL 1 MG CAPSULE PO (21:43)
[2024-03-07 08:00] VITALS: BP 84/53; PULSE 70; RESP 16; TEMP 36.4; O2SAT 94
[2024-03-07] MEDS: buPROPion HCl XL 300 MG TAB.ER.24H PO (09:22)
[2024-03-07] MEDS: FLUoxetine HCl 20 MG CAPSULE PO (09:22)
[2024-03-07] MEDS: methADONE HCl 20 MG/2 ML ORAL.CONC 45 MG PO (09:57)
[2024-03-07] MEDS: buPROPion HCl XL 150 MG TAB.ER.24H PO (09:57)
[2024-03-07] MEDS: Nicotine 21 MG PATCH.TD24 TRANSDERMA (15:06)
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
[2024-03-07 20:00] VITALS: BP 106/68; PULSE 83; RESP 16; TEMP 36.8; O2SAT 95
[2024-03-07 20:11] VITALS: BP 106/68
[2024-03-07] MEDS: Prazosin HCL 1 MG CAPSULE PO (20:11)
[2024-03-07] MEDS: QUEtiapine Fumarate 100 MG TABLET PO (20:11)
[2024-03-07] MEDS: Milk of Magnesia 30 ML ORAL.SUSP PO (20:11)
[2024-03-08 08:12] VITALS: BP 101/60; PULSE 71; RESP 16; TEMP 36.7; O2SAT 96
[2024-03-08] MEDS: buPROPion HCl XL 150 MG TAB.ER.24H PO (09:10)
[2024-03-08] MEDS: buPROPion HCl XL 300 MG TAB.ER.24H PO (09:10)
[2024-03-08] MEDS: FLUoxetine HCl 20 MG CAPSULE PO (09:10)
[2024-03-08] MEDS: methADONE HCl 20 MG/2 ML ORAL.CONC 45 MG PO (09:11)
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
[2024-03-08] MEDS: Nicotine 21 MG PATCH.TD24 TRANSDERMA (10:50)
[2024-03-08 20:00] VITALS: BP 125/71; PULSE 89; RESP 18; TEMP 36.8; O2SAT 96
[2024-03-08 22:10] VITALS: BP 125/71
[2024-03-08] MEDS: traZODone HCL 50 MG TABLET PO (22:10)
[2024-03-08] MEDS: Prazosin HCL 1 MG CAPSULE PO (22:10)
[2024-03-08] MEDS: QUEtiapine Fumarate 100 MG TABLET PO (22:11)
[2024-03-09 08:00] VITALS: BP 91/63; PULSE 68; RESP 14; TEMP 36.8; O2SAT 96
[2024-03-09] MEDS: methADONE HCl 20 MG/2 ML ORAL.CONC 45 MG PO (09:46)
[2024-03-09] MEDS: buPROPion HCl XL 300 MG TAB.ER.24H PO (09:47)
[2024-03-09] MEDS: buPROPion HCl XL 150 MG TAB.ER.24H PO (09:47)
[2024-03-09] MEDS: FLUoxetine HCl 20 MG CAPSULE PO (09:48)
[2024-03-09] MEDS: Nicotine 21 MG PATCH.TD24 TRANSDERMA (09:58)
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
[2024-03-09 20:00] VITALS: BP 159/98; PULSE 84; RESP 18; TEMP 36.6; O2SAT 98
[2024-03-09 21:24] VITALS: BP 159/98
[2024-03-09] MEDS: Prazosin HCL 1 MG CAPSULE PO (21:24)
[2024-03-09] MEDS: QUEtiapine Fumarate 100 MG TABLET PO (21:25)
[2024-03-09] MEDS: traZODone HCL 50 MG TABLET PO (21:25)
--- NOTE | 2024-03-10 | ECG_ITS ---
Test Reason : qtc Blood Pressure : / mmHG Vent. Rate : 067 BPM Atrial Rate : 067 BPM P-R Int : 166 ms QRS Dur : 072 ms QT Int : 376 ms P-R-T Axes : 054 064 044 degrees QTc Int : 397 ms Normal sinus rhythm Normal ECG When compared with ECG of 02-NOV-2023 12:20, No significant change was found Referred By: Jeremiah Black Electronically Signed By:ROHAN PURVIS
[2024-03-10 08:00] VITALS: BP 91/58; PULSE 78; RESP 16; TEMP 36.8; O2SAT 95
[2024-03-10] MEDS: methADONE HCl 20 MG/2 ML ORAL.CONC 45 MG PO (09:22)
[2024-03-10] MEDS: FLUoxetine HCl 20 MG CAPSULE PO (09:23)
[2024-03-10] MEDS: buPROPion HCl XL 150 MG TAB.ER.24H PO (09:23)
[2024-03-10] MEDS: buPROPion HCl XL 300 MG TAB.ER.24H PO (09:23)
[2024-03-10] MEDS: Nicotine 21 MG PATCH.TD24 TRANSDERMA (09:24)
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
[2024-03-10 20:00] VITALS: BP 160/69; PULSE 72; RESP 18; TEMP 36.3; O2SAT 98
[2024-03-10 20:42] VITALS: BP 160/69
[2024-03-10] MEDS: QUEtiapine Fumarate 100 MG TABLET PO (20:42)
[2024-03-10] MEDS: Prazosin HCL 1 MG CAPSULE PO (20:42)
[2024-03-11 08:00] VITALS: BP 107/63; PULSE 84; RESP 16; TEMP 36.9; O2SAT 93
[2024-03-11] MEDS: buPROPion HCl XL 300 MG TAB.ER.24H PO (09:26)
[2024-03-11] MEDS: buPROPion HCl XL 150 MG TAB.ER.24H PO (09:26)
[2024-03-11] MEDS: methADONE HCl 20 MG/2 ML ORAL.CONC 45 MG PO (09:26)
[2024-03-11] MEDS: FLUoxetine HCl 20 MG CAPSULE PO (09:26)
[2024-03-11] MEDS: Nicotine 21 MG PATCH.TD24 TRANSDERMA (09:29)
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
[2024-03-11 20:00] VITALS: BP 164/70; PULSE 77; RESP 16; TEMP 36.2; O2SAT 95
[2024-03-11] MEDS: Prazosin HCL 1 MG CAPSULE PO (22:14)
[2024-03-11] MEDS: QUEtiapine Fumarate 100 MG TABLET PO (22:15)
[2024-03-12 09:00] VITALS: BP 90/61; PULSE 83; RESP 18; TEMP 36.2; O2SAT 93
[2024-03-12] MEDS: buPROPion HCl XL 150 MG TAB.ER.24H PO (09:38)
[2024-03-12] MEDS: FLUoxetine HCl 20 MG CAPSULE PO (09:38)
[2024-03-12] MEDS: buPROPion HCl XL 300 MG TAB.ER.24H PO (09:38)
[2024-03-12] MEDS: methADONE HCl 20 MG/2 ML ORAL.CONC 45 MG PO (09:38)
[2024-03-12] MEDS: Naloxone HCl Nasal TAKE HOME 4 MG SPRAY 8 MG NOSTRILALT (09:45)
== END 2024-03-12 11:38 | disposition home or self-care (01) | DRG 751 ==
LOC: HO.ED 17:04 → HO.PM5 03-02 10:24
PROVIDERS: Emergency Medicine; Physician Assistant Medical; Admitting Provider Clinical Nurse Specialist Psychiatric/Mental Health; Emergency Provider Emergency Medicine; PCP Internal Medicine; Visit Provider Psychiatry & Neurology Psychiatry
DX: F33.3 Major depressive disorder, recurrent, severe with psychotic symptoms (principal); Z91.199 Patient's noncompliance with other medical treatment and regimen due to unspecified reason; F11.20 Opioid dependence, uncomplicated; F41.1 Generalized anxiety disorder; Z91.51 Personal history of suicidal behavior; F17.210 Nicotine dependence, cigarettes, uncomplicated; Z20.822 Contact with and (suspected) exposure to COVID-19; Z79.899 Other long term (current) drug therapy
CPT/HCPCS: 36415; 80053; 80143; 80179; 80307; 81001; 81025; 85025; 87635; 93005; 99285; S9485

== ENCOUNTER 2024-03-02 10:19 | Outpatient (BNV) | payer MEDICAID, SELFPAY | END 2024-03-10 14:08 | PROVIDERS: Admitting Provider Clinical Nurse Specialist Psychiatric/Mental Health; Emergency Provider Emergency Medicine; PCP Internal Medicine; Visit Provider Internal Medicine | DX: I45.9 Conduction disorder, unspecified (principal) | CPT/HCPCS: 93010 ==

== ENCOUNTER → 2024-03-02 10:19 | Outpatient (BNV) | payer OTHER, SELFPAY | PROVIDERS: Admitting Provider Clinical Nurse Specialist Psychiatric/Mental Health; Emergency Provider Emergency Medicine; PCP Internal Medicine; Visit Provider Clinical Nurse Specialist Psychiatric/Mental Health | DX: F33.3 Major depressive disorder, recurrent, severe with psychotic symptoms (principal); F41.1 Generalized anxiety disorder | CPT/HCPCS: 99231; 99232 ==

== ENCOUNTER 2024-04-07 22:21 | Emergency (ER) | payer MEDICAID, SELFPAY ==
--- NOTE | ~2024-04-07 | XR_ITS ---
EXAMINATION: XR ANKLE, RIGHT CLINICAL INFORMATION: Pain COMPARISON: None available. TECHNIQUE: AP, lateral, and mortise views of the right ankle. FINDINGS: Osseous alignment is anatomic. Joint spaces are maintained. No acute fracture is seen. Slight soft tissue swelling noted. XR/XR ankle RT min 3V IMPRESSION: Slight soft tissue swelling without acute osseous findings.
--- NOTE | ~2024-04-07 | XR_ITS ---
EXAMINATION: XR HIP, RIGHT CLINICAL INFORMATION: Pain with no trauma COMPARISON: None available. TECHNIQUE: Two views of the right hip. FINDINGS: Alignment across the hip is anatomic. Joint space is relatively well-maintained. No acute fracture is seen. Included portion of the bony pelvis appears intact. XR/XR hip RT min 2V IMPRESSION: No acute findings identified.
--- NOTE | ~2024-04-07 | XR_ITS ---
EXAMINATION: XR KNEE, RIGHT CLINICAL INFORMATION: Pain COMPARISON: None available. TECHNIQUE: Four views of the right knee. FINDINGS: Osseous alignment is anatomic. Joint spaces appear relatively well-preserved. No acute fracture is seen. No significant joint effusion. XR/XR knee RT 3V IMPRESSION: No acute findings identified.
--- NOTE | ~2024-04-07 | US_ITS ---
EXAMINATION: US VENOUS ULTRASOUND WITH DOPPLER LOWER EXTREMITY, RIGHT CLINICAL INFORMATION: Right lower extremity pain COMPARISON: None available. TECHNIQUE: Ultrasound of the deep veins is performed from the hip to the calf with compression sonography and color and pulse Doppler assessment. Spectral analysis with color-flow imaging is performed. FINDINGS: There is normal venous compression and respiratory variation and augmented flow. The visualized common femoral vein, superficial femoral vein, profunda femoral vein, popliteal vein, and the trifurcation region shows no evidence of deep venous thrombosis. There is no significant popliteal fossa cyst. If the patient's symptoms persist, followup ultrasound in 5 days 7 days might be of value to exclude proximal propagation from a non-visualized calf vein. US/US venous duplex LE RT IMPRESSION: No DVT demonstrated in the right lower extremity.
[2024-04-07 23:19] VITALS: BP 110/81; PULSE 88; RESP 20; TEMP 36.6; O2SAT 96; BMI 28.4
[2024-04-08 00:34] LABS: Alanine Aminotransferase 16 U/L (0-31); Albumin Level 3.8 g/dL (3.5-5.0); Alkaline Phosphatase 72 U/L (39-117); Anion Gap 15 (12-20); Aspartate Amino Transferase 21 U/L (5-31); Bilirubin Total 0.4 mg/dL (0.0-1.0); Blood Urea Nitrogen 19 mg/dL (9-16); Calcium 9.7 mg/dL (8.4-10.2); Carbon Dioxide 23 mmol/L (22-29); Chloride 107 mmol/L (96-108); Creatinine Clr Calc Pharmacy 69.1; Estimated Glomerular Filt Rate > 60; Glucose Random 115 mg/dL (60-115); Potassium 5.1 mmol/L (3.3-5.1); Sodium 140 mmol/L (135-145); Total Protein 7.7 g/dL (6.5-8.0)
--- NOTE | 2024-04-08 00:49 | ED.EXTPRO ---
HPI - Extremity Problem General Chief complaint: Extremity Problem Stated complaint: right foot swollen Time Seen by Provider: 04/08/24 00:37 History of Present Illness HPI Narrative: Patient is a 48-year-old female with a previous history of IV drug use. Have not used in the last year. Presented today with having pain to the right lower extremity. There is no fever no chills. Pain on movement. No back pain. No bowel urinary incontinence. Patient claims she has a history of thrombophlebitis and it had similar pain like this. The pain is diffuse. There is no chest pain there is no shortness of breath. There is no diaphoresis. No change in bowel movement. Patient from home. No trauma. Related Data Home Medications ?Medication ?Instructions ?Recorded ?Confirmed methadone 10 mg/mL oral 45 mg PO DAILY 11/02/23 02/29/24 concentrate (Methadone Intensol) Previous Rx's ?Medication ?Instructions ?Recorded bupropion HCl 150 mg 24 hr tablet, 150 mg PO DAILY 30 days #30 tabs 03/12/24 extended release bupropion HCl 300 mg 24 hr tablet, 300 mg PO QAM 30 days #30 tabs 03/12/24 extended release fluoxetine 20 mg capsule 20 mg PO DAILY 30 days #30 caps 03/12/24 nicotine 21 mg/24 hr daily 21 mg transdermal DAILY PRN 03/12/24 transdermal patch smoking cessation 28 days #28 ea prazosin 1 mg capsule 1 mg PO BEDTIME 30 days #30 caps 03/12/24 quetiapine 100 mg tablet 100 mg PO QPM 30 days #30 tabs 03/12/24 trazodone 50 mg tablet 50 mg PO BEDTIME PRN Insomnia 30 03/12/24 days #30 tabs oxycodone 5 mg tablet 5 mg PO BID PRN pain #7 tabs 04/08/24 Allergies Allergy/AdvReac Type Severity Reaction Status Date / Time seafood Allergy Intermediate Rash Verified 04/07/24 23:20 Review of Systems Review of Systems: Positive pain to the right lower extremity Yes all other systems are reviewed and are negative PMFSH Past Medical History Attestation statement: The following information was validated with the patient. Medical History Generalized anxiety disorder Major depression, single episode Surgical History History of shoulder surgery Social History Social History Household Members: Family Household Members Other:: Reports she lives with 8 people in sister's house. Housing: House Do you presently have visiting nurse or other home services: No Patient Tobacco Use Status: Current everyday Tobacco user Tobacco use type: Cigarette Cigarette Packs Per Day: 0.5 Cigarettes Per Day: 10.0 e-Cigarette/Vaping Use: Former Use Substance Use Type: Crack/Cocaine service: No Current occupational status: unemployed Current occupation: right hand dominant Sexual orientation: Straight/Heterosexual Physical Exam Vital Signs: Vital Signs: Last Vital Signs Temp 98.7 F 04/08/24 11:19 Pulse 72 04/08/24 11:19 Resp 16 04/08/24 11:19 BP 111/75 04/08/24 11:19 Pulse Ox 98 04/08/24 11:19 O2 Del Method Room Air 04/08/24 11:19 BMI result Body Mass Index 28.4 Appearance: Alert. Oriented X3. No acute distress. Eyes: Pupils equal, round and reactive to light. ENT: Pharynx normal. Neck: Normal inspection. Neck supple. No lymph nodes noted. No crepitus CVS: Normal heart rate and rhythm. Pulses normal. Normal S1 and S2 Respiratory: No respiratory distress. Breath sounds normal. No Wheezing. No rales Abdomen: Soft and nontender. No rigidity. No distention. good BS x4 Skin: Skin warm and dry. Normal skin color. Normal skin turgor. Extremities: No lower extremity edema. Neurovascular intact to all extremities. No Lacerations. No Rash. Neuro: Oriented X 3. No motor deficit. No sensory deficit. Moving all extermities. No slurred speech Course Reevaluation(s) Reevaluation #1: Dr. Reyna's note: Patient was seen and examined by ortho at the bedside patient has pain over the right thigh not over the hip itself making septic arthritis is not likely diagnosis. Rest of the workup is unremarkable as per Dr. Lundberg pain is controlled better with Tylenol will discharge the patient with few pills of oxycodone. And follow-up with orthopedic. Time: 10:53 Medications Administered Discontinued Medications Generic Name Dose Route Start Last Admin Trade Name Freq PRN Reason Stop Dose Admin Acetaminophen 650 mg 04/08/24 10:06 04/08/24 10:13 Acetaminophen 325 Mg Tablet PO 04/08/24 10:07 650 mg ONCE ONE Administration Medical Decision Making Medical Decision Making [facility] Narrative: Patient is 48 years old presents today with having right lower extremity pain. Has a history of thrombophlebitis. No history of DVT positive history of IV drug use in the past. Has pain diffuse on the lower extremity. Patient's white count is normal. Electrolytes are normal. Patient's CRP and sed rate are both mildly elevated CRP being in the 3 range and sed rate was 37. Patient's white count was normal there is a normal differential. Ultrasound of the lower extremity showed no evidence of DVT. Patient's x-ray of the hip, knee, ankle by my interpretation are all grossly negative. I reviewed radiology's reading which was the same. Will consult Orthopedics Orthopedics consulted a case start was more of a inflammation rather than a hip infection patient was discharged home. Differential Diagnosis Differential Diagnoses: The differential diagnosis associated with the presentation includes Admission/Observation Consideration of admission/observation: Escalation of care including admission/observation considered Lab Data [facility] Lab Attestation statement: I reviewed the patient's lab results. 04/08/24 01:25 04/08/24 00:10 Labs: Lab Results 04/08/24 04/08/24 04/08/24 Range/Units 00:10 01:25 06:10 WBC 4.9 (4.8-10.8) X10*3/uL RBC 4.64 (4.20-5.50) X10*6/uL Hgb 13.5 (12.0-16.0) g/dl Hct 39.6 (37.0-47.0) % MCV 85.3 (80.0-98.0) fL MCH 29.1 (27.0-33.0) pg MCHC 34.1 (31.0-35.0) g/dl RDW 13.1 (11.0-16.0) % Plt Count 138 L (160-400) X10*3/uL MPV 11.6 (9.4-12.3) fL Immature Gran % (Auto) 0.4 (0.0-0.4) % Neut % (Auto) 62.4 (45-73) % Lymph % (Auto) 25.2 (20-40) % [place] % (Auto) 10.8 (2-11) % Eos % (Auto) 1.0 (0-4) % Baso % (Auto) 0.2 (0-2) % Lymph # (Auto) 1.2 (1.2-4.9) X10*3/uL [place] # (Auto) 0.5 (0.1-1.2) X10*3/uL Eos # (Auto) 0.1 (0.0-0.4) X10*3/uL Baso # (Auto) 0.0 (0.0-0.2) X10*3/uL Abs Immat Gran (auto) 0.02 (0.00-0.03) X10*3/uL Absolute Neuts (auto) 3.1 (2.0-8.3) x10*3/uL Absolute Nucleated RBC 0.000 (0.0-0.012) X10*3/uL Nucleated RBC % (auto) 0.0 (0.0-0.2) /100WBC Smear Tech's Comments VERIFIED ESR 37 H (0-20) MM/HR Sodium 140 (135-145) mmol/L Potassium 5.1 (3.3-5.1) mmol/L Chloride 107 (96-108) mmol/L Carbon Dioxide 23 (22-29) mmol/L Anion Gap 15 (12-20) BUN 19 H (9-16) mg/dL Creatinine 0.79 (0.5-1.4) mg/dL Estim Creat Clear Calc 69.1 Estimated GFR > 60 Random Glucose 115 (60-115) mg/dL Calcium 9.7 (8.4-10.2) mg/dL Total Bilirubin 0.4 (0.0-1.0) mg/dL AST 21 (5-31) U/L ALT 16 (0-31) U/L Alkaline Phosphatase 72 (39-117) U/L C-Reactive Protein 3.42 H (< or = 0.50) mg/dL Total Protein 7.7 (6.5-8.0) g/dL Albumin 3.8 (3.5-5.0) g/dL Independent Interpretation I performed an independent interpretation of an: Plain X-Ray (Hip, knee, ankle all negative) Radiology Impression Discussion of test interpretation with radiology: I have reviewed the radiologist's reading. Radiologist Impression: Ultrasound negative DVT External Record Review External record reviewed: Outpatient record (Orthopedic note reviewed) Discharge Plan Discharge Clinical Impression: Acute pain of right lower extremity Patient Disposition: Home, Self-Care Instructions: Leg Pain (ED) Prescriptions: New oxycodone 5 mg tablet 5 mg PO BID PRN (Reason: pain) Qty: 7 0RF Rx Instructions: Partial Fill upon patient request. No Action methadone [Methadone Intensol] 10 mg/mL Concentrate 45 mg PO DAILY nicotine 21 mg/24 hr Patch 24 Hour 21 mg transdermal DAILY PRN (Reason: smoking cessation) 28 Days Qty: 28 1RF bupropion HCl 150 mg Tablet Extended Release 24 Hr 150 mg PO DAILY 30 Days Qty: 30 1RF Rx Instructions: take with 300mg tablet fluoxetine 20 mg Capsule 20 mg PO DAILY 30 Days Qty: 30 1RF trazodone 50 mg Tablet 50 mg PO BEDTIME PRN (Reason: Insomnia) 30 Days Qty: 30 1RF prazosin 1 mg Capsule 1 mg PO BEDTIME 30 Days Qty: 30 1RF Protocol: Hold for SBP< HOLD for SBP < : 90 quetiapine 100 mg tablet 100 mg PO QPM 30 Days Qty: 30 1RF bupropion HCl 300 mg tablet extended release 24 hr 300 mg PO QAM 30 Days Qty: 30 1RF Rx Instructions: take with 150mg tablet Referrals: Stas Soria MD [Physician] - Interventions: ED Discharge Assessment Last Done: 04/08/24 11:19 Discharge Date/Time: 04/08/24 11:27 Print Language: [place]
[2024-04-08 01:06] LABS: C Reactive Protein 3.42 mg/dL (< or = 0.50)
--- NOTE | 2024-04-08 01:29 | PC.NURSE ---
attempted to obtain labs on pt, pt very hard stick, multiple attempts made, lab called and reports phlebotomy will attempt to try.
[2024-04-08 01:33] VITALS: BP 111/71; PULSE 81; RESP 16; TEMP 36.9; O2SAT 98
[2024-04-08 01:50] LABS: Basophils Percent Auto 0.2 % (0-2); Eosinophils Absolute Auto 0.1 X10*3/uL (0.0-0.4); Hematocrit 39.6 % (37.0-47.0); Hemoglobin 13.5 g/dl (12.0-16.0); Imm Gran Abs Auto 0.02 X10*3/uL (0.00-0.03); Imm Gran Pct Auto 0.4 % (0.0-0.4); Lymphocytes Absolute Auto 1.2 X10*3/uL (1.2-4.9); Lymphocytes Percent Auto 25.2 % (20-40); MANUAL DIFF FLAG SCAN; Mean Corpuscular HGB Conc 34.1 g/dl (31.0-35.0); Mean Corpuscular Hemoglobin 29.1 pg (27.0-33.0); Mean Corpuscular Volume 85.3 fL (80.0-98.0); Mean Platelet Volume 11.6 fL (9.4-12.3); Monocytes Absolute Auto 0.5 X10*3/uL (0.1-1.2); Monocytes Percent Auto 10.8 % (2-11); Neutrophils Absolute Auto 3.1 x10*3/uL (2.0-8.3); Neutrophils Percent Auto 62.4 % (45-73); PLT CLUMP 1; Red Blood Count 4.64 X10*6/uL (4.20-5.50); Red Cell Distribution Width 13.1 % (11.0-16.0); SCAN SMEAR FLAG 1
--- NOTE | 2024-04-08 01:57 | PC.NURSE ---
pt refusing second lab draw at this time, provider aware.
[2024-04-08 02:30] LABS: Platelet Count 138 X10*3/uL (160-400); White Blood Count 4.9 X10*3/uL (4.8-10.8)
[2024-04-08 02:31] LABS: SLIDE REVIEW VERIFIED
--- NOTE | 2024-04-08 02:38 | MHC.EDTECH ---
Patient refused additional labs ,Provider aware .
--- NOTE | 2024-04-08 04:31 | PC.NURSE ---
explained to pt that need for ESR lab is necessary for care, pt reports understanding. phlebotomy called to draw pt at this time. aware.
--- NOTE | 2024-04-08 06:10 | PC.NURSE ---
labs obtained and sent to lab, at bedside.
[2024-04-08 06:11] VITALS: BP 116/71; PULSE 83; RESP 18; TEMP 37.3; O2SAT 97
[2024-04-08 06:49] LABS: Erythrocyte Sedimentation Rate 37 MM/HR (0-20)
[2024-04-08 08:10] VITALS: BP 100/68; PULSE 85; RESP 16; O2SAT 94
[2024-04-08 10:04] VITALS: BP 102/67; PULSE 79; RESP 18; TEMP 37.2; O2SAT 96
[2024-04-08] MEDS: Acetaminophen 325 MG TABLET 650 MG PO (10:13)
--- NOTE | 2024-04-08 10:43 | P.CONOP_ITS ---
History of Present Illness HPI Consult date: 04/08/24 Chief complaint: right foot swollen Narrative: 48 YO female c/o Rt thigh pain x2 days. She has a h/o IVDU but states she last used about 1 year ago. She denies recent injury or illness. She c/o pain along the lateral aspect of the thigh. Denies groin pain, denies low back/buttock pain. She denies knee pain. She states she has been able to ambulate but it has been with discomfort. While in the ED, ED provider concerned for septic hip-orthopedics called for further evaluation. Review of Systems 2 Review of Systems: Yes all other systems are reviewed and are negative PMFSH Past Medical History Medical History Generalized anxiety disorder Major depression, single episode Surgical History Surgical History History of shoulder surgery Social History Social History Household Members: Family Household Members Other:: Reports she lives with 8 people in sister's house. Housing: House Do you presently have visiting nurse or other home services: No Patient Tobacco Use Status: Current everyday Tobacco user Tobacco use type: Cigarette Cigarette Packs Per Day: 0.5 Cigarettes Per Day: 10.0 Smoked in Last 30 Days: No e-Cigarette/Vaping Use: Former Use Use of substances other than those prescribed or required for medical reasons: No Substance Use Type: Crack/Cocaine Advance Directives: No Advance Directives Information Provided: Yes Patient : No service: No Current occupational status: unemployed Current occupation: right hand dominant Sexual orientation: Straight/Heterosexual Meds Allergies Allergy/AdvReac Type Severity Reaction Status Date / Time seafood Allergy Intermediate Rash Verified 04/07/24 23:20 Home Medications ?Medication ?Instructions ?Recorded ?Confirmed ?Last Taken ?Type methadone 10 mg/mL oral 45 mg PO DAILY 11/02/23 02/29/24 02/29/24 History concentrate (Methadone Intensol) Physical Exam 2 Vital Signs: Vital Signs: Last Vital Signs Temp 98.9 F 04/08/24 10:04 Pulse 79 04/08/24 10:04 Resp 18 04/08/24 10:04 BP 102/67 04/08/24 10:04 Pulse Ox 96 04/08/24 10:04 O2 Del Method Room Air 04/08/24 10:04 BMI result Body Mass Index 28.4 Const: General: cooperative, healthy appearing, comfortable and no acute distress Extrem: Other: Right hip normal to inspection No redness No swelling No pain within the hip joint with ROM of the hip She is able to flex and extend the right knee No erythema or swelling She has mild tenderness along the greater troch bursa No erythema Mild swelling NVI. Results Labs 04/08/24 01:25 04/08/24 00:10 Labs: Abnormal lab results 04/08/24 04/08/24 04/08/24 Range/Units 00:10 01:25 06:10 Plt Count 138 L (160-400) X10*3/uL ESR 37 H (0-20) MM/HR BUN 19 H (9-16) mg/dL C-Reactive Protein 3.42 H (< or = 0.50) mg/dL H & H 04/08/24 Range/Units 01:25 Hgb 13.5 (12.0-16.0) g/dl Hct 39.6 (37.0-47.0) % All other labs normal. Diagnostic results Hip x-ray: image reviewed (no acute fracture or dislocations. ) Assessment and Plan (1) Acute pain of right lower extremity: Status: Acute Plan No evidence of septic hip joint likely tendonitis or another inflammatory process No further orthopedic intervention warranted at this time Please re-consult if there are any other questions or concerns. Procedures Date of Service Date of Service: 04/08/24
[2024-04-08 11:15] VITALS: BP 111/75; PULSE 72; RESP 16; TEMP 37.1; O2SAT 98
[2024-04-08 11:19] VITALS: BP 111/75; PULSE 72; RESP 16; TEMP 37.1; O2SAT 98
== END 2024-04-08 11:27 | disposition home or self-care (01) ==
PROVIDERS: Emergency Provider Emergency Medicine Emergency Medical Services; PCP Internal Medicine
DX: M79.661 Pain in right lower leg (principal); R60.0 Localized edema; M25.551 Pain in right hip; M25.571 Pain in right ankle and joints of right foot; Z79.899 Other long term (current) drug therapy
CPT/HCPCS: 36415; 73502; 73562; 73610; 80053; 85025; 85652; 86140; 93971; 99284

== ENCOUNTER → 2024-04-08 00:02 | Outpatient (BNV) | payer MEDICAID, SELFPAY | PROVIDERS: Emergency Provider Emergency Medicine Emergency Medical Services; PCP Internal Medicine; Visit Provider Physician Assistant | DX: M79.604 Pain in right leg (principal) | CPT/HCPCS: 99283 ==

== ENCOUNTER 2024-08-11 10:00 | Outpatient (RCR) | payer MEDICAID, SELFPAY ==
--- NOTE | 2024-07-01 09:54 | MHC.PT.EP ---
[facility] [place] Office [place] [facility] [place] [facility] [address] Gale Barone [address] [phone] F: [phone] F: [phone] F: [phone] F: [phone] Physical Therapy Plan of Care Date of Evaluation: 07/01/24 Date of Surgery: 5 YRS AGO L SHLDER Diagnosis: R SHOULDER TENDONITIS BUT Pt REPORTS L SHLDER PAIN ALSO Assessment: Pt IS 49 YO F REFERRED TO PT FROM DR ISRAEL WITH R SHLDER TENDONITIS. Pt REPORTS PAIN ON L SIDE ALSO WITH HX OF L SHLDER SURGERY (5 YRS AGO IN [place]..?[facility]). PRESENTS WITH C/O B SHLDER PAIN, LIMITED SHLDER ROM AND LIMITED SHLDER MM STRENGTH. SHOULD BENEFIT FROM PT TO ADDRESS THESE ISSUES Frequency and Duration: The patient will be seen 2X/WK X 6 WKS Short Term Goals: 1. INCREASED POSTURE AWARNESS AND AWARENESS SHOULDER CARE 2. I HOME PROGRAM WITH DC EX PLAN Electrical Helper Goals: 1 INCREASED SHLDER ROM IN ALL DIRECTIONS 20-30 DEGREES 2. Pt TO REPORT INCREASED USE OF UES FOR ADLS 3. DECREASED SHLDER PAIN AT LEAST 50% B Treatment Plan: Modalities to reduce pain, spasms and effusion. Manual therapy to restore motion and function. Therapeutic exercise to improve strength and flexibility. Neuromuscular re-education for posture and balance. Therapeutic activities to return to functional activities of daily living. Electronically signed by: VIC MOTA PT Please sign and return to therapist. Thank you for your referral.
--- NOTE | 2024-09-12 15:29 | MHC.PT.DC ---
[facility] [place] Office [place] Office [place] [facility] [address] Glae Barone [address] [phone] F: [phone] F: [phone] F: [phone] F: [phone] Physical Therapy Discharge Report Diagnosis: R SHOULDER TENDONITIS BUT Pt REPORTS L SHLDER PAIN ALSO Date of Surgery: 5 YRS AGO L GENOER Date of Evaluation: 07/01/24 Date of Discharge: 09/12/24 Treatments to Date: 7 Cancellations to Date: No Shows to Date: Discharge Status: Improved Function Independent with HEP Patient Elected to Stop Discharge Summary: AT LAST SESSION PER NOTE, Pt IS FEELING BETTER OVERALL. Pt THEN NO SHOWED LAST SCHEDULED APPT Electronically signed by: VIC MOTA PT Please sign and return to therapist. Thank you for your referral.
== END 2024-09-12 15:30 | disposition home or self-care (01) ==
LOC: HO.PT 10:00
PROVIDERS: PCP Internal Medicine; Visit Provider Internal Medicine
DX: M75.21 Bicipital tendinitis, right shoulder (principal)
CPT/HCPCS: 97110; 97161; 97530; 97535

== ENCOUNTER 2024-11-04 09:30 | Emergency (ER) | payer MEDICAID, SELFPAY ==
--- NOTE | ~2024-11-04 | XR_ITS ---
EXAMINATION: XR CHEST CLINICAL INFORMATION: chest pain COMPARISON: None available. TECHNIQUE: 2 views of the chest were obtained. FINDINGS: Pulmonary reticular pattern. No consolidation, pleural effusion or pneumothorax. Cardiomediastinal silhouette size is normal. Multilevel thoracic spondylosis. There is a wedge-shaped compression deformity representing 40-50% volume loss in the mid to lower thoracic vertebra probable old. Metallic hardware proximal left humerus. XR/XR chest 2V IMPRESSION: Chronic interstitial lung disease. Superimposed acute small airway inflammatory versus infectious process cannot be excluded. Electronically signed by: John Fonseca MD 11/04/2024 03:04 PM LOREN IBARRA
[2024-11-04 09:44] VITALS: BP 119/83; PULSE 86; RESP 16; TEMP 36.5; O2SAT 93; BMI 29.3
--- OUTSIDE RECORDS SUMMARY | 2024-11-04 11:36 | XMS_ITS | Clinical Summary ---
Author Organization [employer] Address [address] [place] [address] Care Team Providers Care Registered Route Associate Name Role Phone Unavailable Primary Care Provider Unavailabl e Social History Tobacco Use Types Packs/Day Years Used Date Smoking Tobacco: Never Assessed Comments Unknown Sex and Gender Information Value Date Recorded Sex Assigned at Not on file Legal Sex Female 10:31 AM EDT Gender Identity Not on file Sexual Orientation Not on file Plan of Treatment Health Maintenance Due Date Last Done Comments CT Colonography 1973 Colonoscopy 1973 Colorectal Cancer Screening 1973 Depression Screening 1973 FIT DNA/Cologuard 1973 FIT 1973 FOBT 1973 Sigmoidoscopy 1973 Alcohol/Substance Use Screening 1985 Tobacco Screening 1985 Family Planning (PISQ) 1988 DTaP/Tdap/Td Vaccines (1 - Tdap) 1992 Hepatitis B Vaccines (1 of 3 - 19+ 3-dose series) 1992 Pap Smear 1994 Cervical Cancer Screening 2003 HPV/Cotest 2003 Mammogram 2013 Pneumococcal Vaccine: 50+ Ye ars (1 of 1 - PCV) 2023 Zoster Vaccines (1 of 2) 2023 COVID-19 Vaccine (2023-2 5 season) 2024 Influenza Vaccine (#1) 2024 RSV Patients and Pa tients Aged 60 years or older (1 - 1-dose 75+ series) 2048 HIB Vaccines Aged Out No longer eligi ble based on patient's age to complete this topic HPV Vaccines Aged Out No longer eligi ble based on patient's age to complete this topic Hepatitis A Vaccines Aged Out No long er eligible based on patient's age to complete this topic IPV Vaccines Aged Out No longer eligi ble based on patient's age to complete this topic Meningococcal Vaccine Aged Out No mindi darrin eligible based on patient's age to complete this topic Pneumococcal Vaccine: Pediat rics (0 to 5 Years) and At-Risk Patients (6 to 49) Years) Aged Out No longer eligible b ased on patient's age to complete this topic RSV under 20 months Aged Out No longe r eligible based on patient's age to complete this topic Rotavirus Vaccines Aged Out No longer eligible based on patient's age to complete this topic
--- NOTE | 2024-11-04 12:22 | ECG_ITS ---
Test Reason : cp Blood Pressure : */* mmHG Vent. Rate : 73 BPM Atrial Rate : 73 BPM P-R Int : 164 ms QRS Dur : 70 ms QT Int : 372 ms P-R-T Axes : 61 66 64 degrees QTcB Int : 409 ms Normal sinus rhythm Normal ECG When compared with ECG of 04-Nov-2024 09:53, No significant change was found Referred By: Zander Faustin Electronically Signed By: Durga Elizabeth
[2024-11-04 12:44] LABS: MANUAL DIFF FLAG NO
[2024-11-04 12:47] LABS: Basophils Percent Auto 0.3 % (0-2); Eosinophils Percent Auto 0.3 % (0-4); Hematocrit 41.3 % (37.0-47.0); Imm Gran Abs Auto 0.02 X10*3/uL (0.00-0.03); Imm Gran Pct Auto 0.3 % (0.0-0.4); Lymphocytes Absolute Auto 0.8 X10*3/uL (1.2-4.9); Lymphocytes Percent Auto 12.4 % (20-40); Mean Corpuscular HGB Conc 33.9 g/dl (31.0-35.0); Mean Corpuscular Hemoglobin 29.2 pg (27.0-33.0); Mean Corpuscular Volume 86.2 fL (80.0-98.0); Mean Platelet Volume 9.9 fL (9.4-12.3); Monocytes Absolute Auto 0.4 X10*3/uL (0.1-1.2); Monocytes Percent Auto 6.4 % (2-11); Neutrophils Percent Auto 80.3 % (45-73); Platelet Count 176 X10*3/uL (160-400); Red Blood Count 4.79 X10*6/uL (4.20-5.50); Red Cell Distribution Width 13.6 % (11.0-16.0); White Blood Count 6.3 X10*3/uL (4.8-10.8)
[2024-11-04 13:03] LABS: Anion Gap 10 (12-20); Blood Urea Nitrogen 17 mg/dL (9-16); Calcium 9.5 mg/dL (8.4-10.2); Carbon Dioxide 26 mmol/L (22-29); Chloride 108 mmol/L (96-108); Creatinine Clr Calc Pharmacy 74.1; Estimated Glomerular Filt Rate > 60; Glucose Random 98 mg/dL (60-115); Potassium 4.3 mmol/L (3.3-5.1); Sodium 140 mmol/L (135-145)
[2024-11-04 13:15] LABS: Troponin-I High Sensitivity < 2.7 ng/L (<3.5-17.0)
[2024-11-04 13:26] VITALS: BP 123/83; PULSE 69; RESP 14; TEMP 36.7; O2SAT 96
--- NOTE | 2024-11-04 13:59 | ED.CHESTPAIN ---
HPI - Chest Pain General Chief Complaint: Chest Pain Stated Complaint: hurts to breath Time Seen by Provider: 11/04/24 13:21 Source: patient Mode of arrival: ambulatory Limitations: no limitations History of Present Illness HPI narrative: This is a 49 years old the patient presented to the emergency department with a chief complaint of left thigh chest pain sincerely morning. The pain is described as pleuritic increased with a breath no radiation. She denies any exertional symptoms any radiation of the pain any diaphoresis MD complaint: chest pain Onset (ago): hour(s) (8 h) Timing of current episode: constant Prior episodes: No Onset: during rest Pain location: left chest Pain radiation: none Severity: moderate Quality: sharp Relieving factors: rest Exacerbating factors: inspiration Treatment prior to arrival: none Risk Factors Coronary artery disease risk factors: none Thoracic aortic dissection risk factors: none Related Data Home Medications ?Medication ?Instructions ?Recorded ?Confirmed methadone 10 mg/mL oral 45 mg PO DAILY 11/02/23 02/29/24 concentrate (Methadone Intensol) Previous Rx's ?Medication ?Instructions ?Recorded bupropion HCl 150 mg 24 hr tablet, 150 mg PO DAILY 30 days #30 tabs 03/12/24 extended release bupropion HCl 300 mg 24 hr tablet, 300 mg PO QAM 30 days #30 tabs 03/12/24 extended release fluoxetine 20 mg capsule 20 mg PO DAILY 30 days #30 caps 03/12/24 nicotine 21 mg/24 hr daily 21 mg transdermal DAILY PRN 03/12/24 transdermal patch smoking cessation 28 days #28 ea prazosin 1 mg capsule 1 mg PO BEDTIME 30 days #30 caps 03/12/24 quetiapine 100 mg tablet 100 mg PO QPM 30 days #30 tabs 03/12/24 trazodone 50 mg tablet 50 mg PO BEDTIME PRN Insomnia 30 03/12/24 days #30 tabs oxycodone 5 mg tablet 5 mg PO BID PRN pain #7 tabs 04/08/24 naproxen 500 mg tablet (Naprosyn) 500 mg PO BID PRN PAIN #20 tabs 11/04/24 Allergies Allergy/AdvReac Type Severity Reaction Status Date / Time seafood Allergy Intermediate Rash Verified 11/04/24 09:47 Review of Systems Constitutional: Constitutional: Reports no additional constitutional complaints Eyes: Eyes: Reports no additional eye complaints Respiratory: Respiratory: Reports no additional respiratory complaints [facility] Past Medical History Attestation statement: The following information was validated with the patient. [facility] Narrative: Hx of depression Medical History Generalized anxiety disorder Major depression, single episode Surgical History History of shoulder surgery Social History Social History Household Members: Family Household Members Other:: Reports she lives with 8 people in sister's house. Housing: House Do you presently have visiting nurse or other home services: No Patient Tobacco Use Status: Current everyday Tobacco user Tobacco use type: Cigarette Cigarette Packs Per Day: 0.5 Cigarettes Per Day: 10.0 e-Cigarette/Vaping Use: Former Use Substance Use Type: Crack/Cocaine Advance Directives: No Advance Directives Information Provided: Yes Do you have a plan to hurt others: No Plan service: No Current occupational status: unemployed Current occupation: right hand dominant Sexual orientation: Straight/Heterosexual Physical Exam Vital Signs: Vital Signs: Last Vital Signs Temp 98.7 F 11/04/24 15:45 Pulse 78 11/04/24 15:45 Resp 17 11/04/24 15:45 BP 127/87 11/04/24 15:45 Pulse Ox 96 11/04/24 15:45 O2 Del Method Room Air 11/04/24 15:45 BMI result Body Mass Index 29.3 No acute distress looks comfortable in the stretcher Const: General: cooperative Nutritional Appearance: well nourished Orientation/consciousness: patient oriented x3 Limitations: no limitations HEENT: Head: Yes normal to inspection General nose exam: Normal external nose present Face and sinus: Yes normal facial exam Neck: Neck: Yes normal visual inspection and Yes full ROM Chest: Chest palpation & inspection: normal inspection of the chest Resp: Effort & Inspection: normal respiratory effort Auscultation: clear to auscultation bilaterally Cardio: Jugular venous distension: no JVD Rate: regular rate Rhythm: regular rhythm GI: Inspection: Yes normal to inspection Palpation (GI): Soft to palpation, not firm and nontender Auscultation: normal bowel sounds Skin: General skin exam: no rashes or lesions noted, elasticity normal and turgor normal Lesions: no lesions Rashes: no rashes Neuro: General: patient oriented x3 Course Reevaluation(s) Reevaluation #1: I did point of care ultrasound of the heart, no pericardial effusion go home wall motion Time: 15:59 Reevaluation #2: Remain stable point of care ultrasound showed a normal wall motion I reviewed the chest x-ray reading by the Radiology by the clinical picture does not fit with infectious process, she has no cough she has a normal white count she has no fever therefore I do not think she needs any antibiotic Time: 16:03 Reevaluation #3: Delta trop is flat, acute coronary syndrome is very unlikely, D-dimer is also negative therefore PE is unlikely pain is pleuritic reproducible I think at this point she can be safely discharged home she can follow-up with the primary care physician patient is very comfortable with the plan of care we will discharge home Time: 16:31 Medications Administered Discontinued Medications Generic Name Dose Route Start Last Admin Trade Name Freq PRN Reason Stop Dose Admin Ketorolac Tromethamine 30 mg 11/04/24 15:07 11/04/24 15:30 Ketorolac Tromethamine 30 Mg/Ml Vial IM 11/04/24 15:08 30 mg ONCE ONE Administration Medical Decision Making Medical Decision Making [facility] Narrative: Who presented to the emergency department with a chief complaint of chest pain pleuritic in nature we will obtain chest x-ray labs EKG Differential Diagnosis Differential Diagnoses: The differential diagnosis associated with the presentation includes ACS/pleurisy/PE Admission/Observation Consideration of admission/observation: Escalation of care including admission/observation considered Lab Data [facility] Lab Attestation statement: I reviewed the patient's lab results. 11/04/24 12:40 11/04/24 12:40 Labs: Lab Results 11/04/24 11/04/24 11/04/24 Range/Units 12:40 14:24 15:56 WBC 6.3 (4.8-10.8) X10*3/uL RBC 4.79 (4.20-5.50) X10*6/uL Hgb 14.0 (12.0-16.0) g/dl Hct 41.3 (37.0-47.0) % MCV 86.2 (80.0-98.0) fL MCH 29.2 (27.0-33.0) pg MCHC 33.9 (31.0-35.0) g/dl RDW 13.6 (11.0-16.0) % Plt Count 176 D (160-400) X10*3/uL MPV 9.9 (9.4-12.3) fL Immature Gran % (Auto) 0.3 (0.0-0.4) % Neut % (Auto) 80.3 H (45-73) % Lymph % (Auto) 12.4 L (20-40) % Dare % (Auto) 6.4 (2-11) % Eos % (Auto) 0.3 (0-4) % Baso % (Auto) 0.3 (0-2) % Lymph # (Auto) 0.8 L (1.2-4.9) X10*3/uL Dare # (Auto) 0.4 (0.1-1.2) X10*3/uL Eos # (Auto) 0.0 (0.0-0.4) X10*3/uL Baso # (Auto) 0.0 (0.0-0.2) X10*3/uL Abs Immat Gran (auto) 0.02 (0.00-0.03) X10*3/uL Absolute Neuts (auto) 5.0 (2.0-8.3) x10*3/uL Absolute Nucleated RBC 0.000 (0.0-0.012) X10*3/uL Nucleated RBC % (auto) 0.0 (0.0-0.2) /100WBC D-Dimer High Sensitivty < 150 NG/ML Sodium 140 (135-145) mmol/L Potassium 4.3 (3.3-5.1) mmol/L Chloride 108 (96-108) mmol/L Carbon Dioxide 26 (22-29) mmol/L Anion Gap 10 L (12-20) BUN 17 H (9-16) mg/dL Creatinine 0.74 (0.5-1.4) mg/dL Estim Creat Clear Calc 74.1 Estimated GFR > 60 Random Glucose 98 (60-115) mg/dL Calcium 9.5 (8.4-10.2) mg/dL Troponin I High Sens < 2.7 < 2.7 (<3.5-17.0) ng/L Independent Interpretation I performed an independent interpretation of an: Plain X-Ray Interpretation: Not acute disease Radiology Impression Discussion of test interpretation with radiology: I have reviewed the radiologist's reading. Radiologist Impression: radiology read the chest x-ray as interstitial lung disease with question of superimposed small airway inflammation(however no sign of infection,no fever,no cough,no elevated WBC) Tests considered The following testing was considered but not selected: CTA CHEST however neg d-dimer Prescription Management I considered prescription management with: Pain Medication Chronic Conditions Depression/anxiety/ Discharge Plan Discharge Clinical Impression: Chest pain Qualifiers: Chest pain type: chest pain on breathing Qualified Code(s): R07.1 - Chest pain on breathing Patient Disposition: Home, Self-Care Instructions: Chest Pain (ED) Additional Instructions: Follow-up with your primary care physician return if you worse, your blood work was normal no evidence of heart attack, your pain could be musculoskeletal we sent a prescription for anti-inflammatory to your pharmacy Prescriptions: New naproxen [Naprosyn] 500 mg tablet 500 mg PO BID PRN (Reason: PAIN) Qty: 20 0RF No Action methadone [Methadone Intensol] 10 mg/mL Concentrate 45 mg PO DAILY nicotine 21 mg/24 hr Patch 24 Hour 21 mg transdermal DAILY PRN (Reason: smoking cessation) 28 Days Qty: 28 1RF bupropion HCl 150 mg Tablet Extended Release 24 Hr 150 mg PO DAILY 30 Days Qty: 30 1RF Rx Instructions: take with 300mg tablet fluoxetine 20 mg Capsule 20 mg PO DAILY 30 Days Qty: 30 1RF trazodone 50 mg Tablet 50 mg PO BEDTIME PRN (Reason: Insomnia) 30 Days Qty: 30 1RF prazosin 1 mg Capsule 1 mg PO BEDTIME 30 Days Qty: 30 1RF Protocol: Hold for SBP< HOLD for SBP < : 90 quetiapine 100 mg tablet 100 mg PO QPM 30 Days Qty: 30 1RF bupropion HCl 300 mg tablet extended release 24 hr 300 mg PO QAM 30 Days Qty: 30 1RF Rx Instructions: take with 150mg tablet oxycodone 5 mg tablet 5 mg PO BID PRN (Reason: pain) Qty: 7 0RF Rx Instructions: Partial Fill upon patient request. Print Language: Vietnamese
[2024-11-04 14:44] LABS: D Dimer High Sensitivity < 150 NG/ML
[2024-11-04] MEDS: Ketorolac Tromethamine 30 MG/ML VIAL IM (15:30)
[2024-11-04 15:45] VITALS: BP 127/87; PULSE 78; RESP 17; TEMP 37.1; O2SAT 96
[2024-11-04 16:24] LABS: Troponin-I High Sensitivity < 2.7 ng/L (<3.5-17.0)
[2024-11-04 16:41] VITALS: BP 127/87; PULSE 78; RESP 17; TEMP 37.1; O2SAT 96
== END 2024-11-04 16:42 | disposition home or self-care (01) ==
PROVIDERS: Emergency Provider Emergency Medicine; PCP Internal Medicine
DX: R07.89 Other chest pain (principal); R07.1 Chest pain on breathing; F17.210 Nicotine dependence, cigarettes, uncomplicated; Z79.899 Other long term (current) drug therapy
CPT/HCPCS: 36415; 71046; 80048; 84484; 85025; 85379; 93005; 96372; 99284; 99285; J1885

== ENCOUNTER → 2024-11-04 12:25 | Outpatient (BNV) | payer MEDICAID, SELFPAY | PROVIDERS: Emergency Provider Emergency Medicine; PCP Internal Medicine; Visit Provider Internal Medicine Cardiovascular Disease | DX: R07.9 Chest pain, unspecified (principal) | CPT/HCPCS: 93010 ==

== ENCOUNTER → 2024-11-04 13:50 | Outpatient (BNV) | payer MEDICAID, SELFPAY | PROVIDERS: Emergency Provider Emergency Medicine; PCP Internal Medicine; Visit Provider Radiology Diagnostic Radiology | DX: R07.9 Chest pain, unspecified (principal); J84.9 Interstitial pulmonary disease, unspecified | CPT/HCPCS: 71046 ==

== ENCOUNTER 2024-12-28 19:47 | Emergency (ER) | payer MEDICAID, SELFPAY ==
--- NOTE | ~2024-12-28 | US_ITS ---
CLINICAL HISTORY: swelling pain bruising Venous duplex ultrasound bilateral lower extremity Comparison: None available Findings: Acute nonocclusive thrombus in the left superficial femoral vein. Chronicity proven without previous. The visualized deep veins are fully compressible with normal Doppler color flow and spectral tracings. Small inguinal lymph nodes are likely reactive with index in the left groin region measuring 1 cm short axis and preserved fatty hilum. IMPRESSION: 1. Small nonocclusive thrombus of the left superficial femoral vein. 2. Otherwise, negative ultrasound for deep venous thrombosis. This document has been electronically signed by: Jeremiah Calloway MD on 12/28/2024 23:50:07
--- NOTE | 2024-12-28 19:57 | ED.GENADULT ---
HPI - General Adult General Chief complaint: Skin/Abscess/Foreign Body Stated complaint: bruises? 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 She has new unexplained bruises on her upper thighs - no trauma - she is worried she is anemic. She has no CP/SOB. She denies fevers. She is worried as this happened before and she was anemic and had clots. complaint: bruising Onset (ago): day(s) (1) Location: left, right and lower extremity Radiation: non-radiation Severity: moderate Relieving factors: none Exacerbating factors: none Associated symptoms: denies other symptoms Treatments prior to arrival: none Related Data Home Medications ?Medication ?Instructions ?Recorded ?Confirmed methadone 10 mg/mL oral 45 mg PO DAILY 11/02/23 02/29/24 concentrate (Methadone Intensol) Previous Rx's ?Medication ?Instructions ?Recorded bupropion HCl 150 mg 24 hr tablet, 150 mg PO DAILY 30 days #30 tabs 03/12/24 extended release bupropion HCl 300 mg 24 hr tablet, 300 mg PO QAM 30 days #30 tabs 03/12/24 extended release fluoxetine 20 mg capsule 20 mg PO DAILY 30 days #30 caps 03/12/24 nicotine 21 mg/24 hr daily 21 mg transdermal DAILY PRN 03/12/24 transdermal patch smoking cessation 28 days #28 ea prazosin 1 mg capsule 1 mg PO BEDTIME 30 days #30 caps 03/12/24 quetiapine 100 mg tablet 100 mg PO QPM 30 days #30 tabs 03/12/24 trazodone 50 mg tablet 50 mg PO BEDTIME PRN Insomnia 30 03/12/24 days #30 tabs oxycodone 5 mg tablet 5 mg PO BID PRN pain #7 tabs 04/08/24 naproxen 500 mg tablet (Naprosyn) 500 mg PO BID PRN PAIN #20 tabs 11/04/24 apixaban 5 mg (74 tabs) tablets in See Rx Instructions .Route 12/29/24 a dose pack (Eliquis DVT-PE Treat .COMPLEX #74 ea 30D Start) Allergies Allergy/AdvReac Type Severity Reaction Status Date / Time seafood Allergy Intermediate Rash Verified 12/28/24 20:03 Review of Systems Review of Systems: Constitutional : No Fever, No Chills, No Fatigue ENT/Mouth : No sore throat, No Rhinorrhea Eyes: No Eye Pain, No Swelling, No Redness Cardiovascular : No Chest Pain, No SOB, No Dyspnea on Exertion Respiratory : No Cough, No Sputum Gastrointestinal : No Nausea, No Vomiting, No Diarrhea, No abdominal Pain Genitourinary : No Dysuria, No Urinary Frequency, No Hematuria, Musculoskeletal : No joint pain, No Myalgias, No Joint Swelling Skin : No Skin Lesions, No rash Neuro : No Weakness, No Numbness, No Dizziness, no Headache Psych : No Anxiety/Panic, No Depression Heme/Lymph: pos Bruising, No Bleeding,No Lymphadenopathy All other systems reviewed and are negative [facility] Past Medical History Attestation statement: The following information was validated with the patient. Source: old records reviewed Medical History Generalized anxiety disorder Major depression, single episode Surgical History History of shoulder surgery Social History Social History Household Members: Family Household Members Other:: Reports she lives with 8 people in sister's house. Housing: House Do you presently have visiting nurse or other home services: No Patient Tobacco Use Status: Current everyday Tobacco user Tobacco use type: Cigarette Cigarette Packs Per Day: 0.5 Cigarettes Per Day: 10.0 e-Cigarette/Vaping Use: Former Use Substance Use Type: Crack/Cocaine Advance Directives: No Advance Directives Information Provided: Yes service: No Current occupational status: unemployed Current occupation: right hand dominant Sexual orientation: Straight/Heterosexual Physical Exam ED Vital Signs: Vital Signs - 24 hr 12/28/24 19:58 12/29/24 00:29 Temperature 97.5 F Pulse Rate 79 70 Respiratory Rate 18 18 Blood Pressure 108/68 115/83 Pulse Oximetry 97 95 Oxygen Delivery Method Room Air Room Air BMI result Body Mass Index 29.4 Appearance: Alert. Oriented X3. No acute distress. Eyes: Pupils equal, round and reactive to light. ENT: Pharynx normal. Neck: Normal inspection. Neck supple. CVS: Normal heart rate and rhythm. Pulses normal. Respiratory: No respiratory distress. Breath sounds normal. Abdomen: Soft and nontender. Skin: Skin warm and dry. Normal skin color. Normal skin turgor. Extremities: bilateral upper thigh various bruises in stages no overlying cellulitis - distal NV, has some mild trace edema Neuro: Oriented X 3. No motor deficit. No sensory deficit. CN2-12 intact Course Course Course Narrative: This is an RME performed by Gui Lopez CNP: Additional HPI, ROS, PE not included below will be deferred to primary provider. Patient is a 49-year-old female who presents to the emergency department for evaluation of multiple areas of ecchymosis to the bilateral lower extremities particularly. She reports that she moved here from [place] 1 years old feels as though she is not receiving the services that she should. She states that she has been diagnosed with thrombophlebitis and states ?my hemoglobin is going down, I get black hematomas all over my body?. She states that since yesterday she has noticed an increased occurrence of painful ecchymotic areas to the bilateral thighs without injury. Plan: Serum labs Medications Administered Discontinued Medications Generic Name Dose Route Start Last Admin Trade Name Freq PRN Reason Stop Dose Admin Apixaban 10 mg 12/29/24 00:04 12/29/24 00:15 Apixaban 5 Mg Tablet PO 12/29/24 00:05 10 mg ONCE ONE Administration Medical Decision Making Medical Decision Making [facility] Narrative: 49 yo female with PMH of depression, anxiety, IVDA hx here with c/o unexplained bruises on the upper thigh she is worried about anemia vs clot - no other symptoms not on thinners or aspirin. The bruises are localized to both upper thighs and compartments are soft and compressible. Differential Diagnosis Differential Diagnoses: The differential diagnosis associated with the presentation includes anemia, phlebitis, DVT Admission/Observation Consideration of admission/observation: Escalation of care including admission/observation considered H/H platelets normal Lab Data [facility] Lab Attestation statement: I reviewed the patient's lab results. 12/28/24 20:23 12/28/24 20:23 Labs: Lab Results 12/28/24 Range/Units 20:23 WBC 5.6 (4.8-10.8) X10*3/uL RBC 4.53 (4.20-5.50) X10*6/uL Hgb 13.3 (12.0-16.0) g/dl Hct 39.3 (37.0-47.0) % MCV 86.8 (80.0-98.0) fL MCH 29.4 (27.0-33.0) pg MCHC 33.8 (31.0-35.0) g/dl RDW 13.2 (11.0-16.0) % Plt Count 189 (160-400) X10*3/uL MPV 10.2 (9.4-12.3) fL Immature Gran % (Auto) 0.2 (0.0-0.4) % Neut % (Auto) 63.1 (45-73) % Lymph % (Auto) 26.3 (20-40) % Knox % (Auto) 7.8 (2-11) % Eos % (Auto) 2.1 (0-4) % Baso % (Auto) 0.5 (0-2) % Lymph # (Auto) 1.5 (1.2-4.9) X10*3/uL [place] # (Auto) 0.4 (0.1-1.2) X10*3/uL Eos # (Auto) 0.1 (0.0-0.4) X10*3/uL Baso # (Auto) 0.0 (0.0-0.2) X10*3/uL Abs Immat Gran (auto) 0.01 (0.00-0.03) X10*3/uL Absolute Neuts (auto) 3.6 (2.0-8.3) x10*3/uL Absolute Nucleated RBC 0.000 (0.0-0.012) X10*3/uL Nucleated RBC % (auto) 0.0 (0.0-0.2) /100WBC Sodium 141 (135-145) mmol/L Potassium 4.0 (3.3-5.1) mmol/L Chloride 108 (96-108) mmol/L Carbon Dioxide 25 (22-29) mmol/L Anion Gap 12 (12-20) BUN 18 H (9-16) mg/dL Creatinine 0.80 (0.5-1.4) mg/dL Estim Creat Clear Calc 68.8 Estimated GFR > 60 Random Glucose 113 (60-115) mg/dL Calcium 9.2 (8.4-10.2) mg/dL Total Bilirubin 0.3 (0.0-1.0) mg/dL Direct Bilirubin 0.1 (0.0-0.5) mg/dL AST 30 (5-31) U/L ALT 26 (0-31) U/L Alkaline Phosphatase 69 (39-117) U/L Total Protein 7.4 (6.5-8.0) g/dL Albumin 3.9 (3.5-5.0) g/dL Independent Interpretation I performed an independent interpretation of an: Ultrasound (+ L sup fem vein clot) Radiology Impression Discussion of test interpretation with radiology: I have reviewed the radiologist's reading. External Record Review External record reviewed: Outpatient record Prescription Management I considered prescription management with: Other Discharge Plan Discharge Clinical Impression: Bruising, DVT (deep venous thrombosis) Patient Disposition: Home, Self-Care Instructions: Apixaban (By mouth), Deep Vein Thrombosis Prevention (ED) Additional Instructions: labs reassuring, normal blood counts no anemia blood clot in left thigh area take all medications as prescribed on eliquis you should NOT be taking motrin, ibuprofen, aleve, naprosyn - TYLENOL is OKAY return for chest pain, trouble breathing, dizziness, head trauma, black or bloody stools or any other concerns please follow up with your doctor as soon as possible to test your blood counts Prescriptions: New Eliquis DVT-PE Treat 30D Start 5 mg (74 tabs) tablets,dose pack See Rx Instructions .ROUTE .COMPLEX Qty: 74 0RF Rx Instructions: 10mg BID for 7 days then 5mg BID to complete starter pack No Action methadone [Methadone Intensol] 10 mg/mL Concentrate 45 mg PO DAILY nicotine 21 mg/24 hr Patch 24 Hour 21 mg transdermal DAILY PRN (Reason: smoking cessation) 28 Days Qty: 28 1RF bupropion HCl 150 mg Tablet Extended Release 24 Hr 150 mg PO DAILY 30 Days Qty: 30 1RF Rx Instructions: take with 300mg tablet fluoxetine 20 mg Capsule 20 mg PO DAILY 30 Days Qty: 30 1RF trazodone 50 mg Tablet 50 mg PO BEDTIME PRN (Reason: Insomnia) 30 Days Qty: 30 1RF prazosin 1 mg Capsule 1 mg PO BEDTIME 30 Days Qty: 30 1RF Protocol: Hold for SBP< HOLD for SBP < : 90 quetiapine 100 mg tablet 100 mg PO QPM 30 Days Qty: 30 1RF bupropion HCl 300 mg tablet extended release 24 hr 300 mg PO QAM 30 Days Qty: 30 1RF Rx Instructions: take with 150mg tablet naproxen [Naprosyn] 500 mg tablet 500 mg PO BID PRN (Reason: PAIN) Qty: 20 0RF oxycodone 5 mg tablet 5 mg PO BID PRN (Reason: pain) Qty: 7 0RF Rx Instructions: Partial Fill upon patient request. Interventions: ED Discharge Assessment Last Done: 12/29/24 00:29 Discharge Date/Time: 12/29/24 00:30 Print Language: Montserratian
[2024-12-28 19:58] VITALS: BP 108/68; PULSE 79; RESP 18; O2SAT 97; BMI 29.4
[2024-12-28 20:31] LABS: MANUAL DIFF FLAG NO
[2024-12-28 20:33] LABS: Basophils Percent Auto 0.5 % (0-2); Eosinophils Absolute Auto 0.1 X10*3/uL (0.0-0.4); Eosinophils Percent Auto 2.1 % (0-4); Hematocrit 39.3 % (37.0-47.0); Hemoglobin 13.3 g/dl (12.0-16.0); Imm Gran Abs Auto 0.01 X10*3/uL (0.00-0.03); Imm Gran Pct Auto 0.2 % (0.0-0.4); Lymphocytes Absolute Auto 1.5 X10*3/uL (1.2-4.9); Lymphocytes Percent Auto 26.3 % (20-40); Mean Corpuscular HGB Conc 33.8 g/dl (31.0-35.0); Mean Corpuscular Hemoglobin 29.4 pg (27.0-33.0); Mean Corpuscular Volume 86.8 fL (80.0-98.0); Mean Platelet Volume 10.2 fL (9.4-12.3); Monocytes Absolute Auto 0.4 X10*3/uL (0.1-1.2); Monocytes Percent Auto 7.8 % (2-11); Neutrophils Absolute Auto 3.6 x10*3/uL (2.0-8.3); Neutrophils Percent Auto 63.1 % (45-73); Platelet Count 189 X10*3/uL (160-400); Red Blood Count 4.53 X10*6/uL (4.20-5.50); Red Cell Distribution Width 13.2 % (11.0-16.0); White Blood Count 5.6 X10*3/uL (4.8-10.8)
[2024-12-28 20:53] LABS: Alanine Aminotransferase 26 U/L (0-31); Albumin Level 3.9 g/dL (3.5-5.0); Alkaline Phosphatase 69 U/L (39-117); Anion Gap 12 (12-20); Aspartate Amino Transferase 30 U/L (5-31); Bilirubin Direct 0.1 mg/dL (0.0-0.5); Bilirubin Total 0.3 mg/dL (0.0-1.0); Blood Urea Nitrogen 18 mg/dL (9-16); Calcium 9.2 mg/dL (8.4-10.2); Carbon Dioxide 25 mmol/L (22-29); Chloride 108 mmol/L (96-108); Creatinine Clr Calc Pharmacy 68.8; Estimated Glomerular Filt Rate > 60; Glucose Random 113 mg/dL (60-115); Sodium 141 mmol/L (135-145); Total Protein 7.4 g/dL (6.5-8.0)
[2024-12-29] MEDS: Apixaban 5 MG TABLET 10 MG PO (00:15)
[2024-12-29 00:29] VITALS: BP 115/83; PULSE 70; RESP 18; TEMP 36.4; O2SAT 95
== END 2024-12-29 00:30 | disposition home or self-care (01) ==
PROVIDERS: Nurse Practitioner Family; Emergency Provider Emergency Medicine; PCP Internal Medicine
DX: I82.409 Acute embolism and thrombosis of unspecified deep veins of unspecified lower extremity (principal); R58 Hemorrhage, not elsewhere classified; M79.89 Other specified soft tissue disorders
CPT/HCPCS: 36415; 80048; 80076; 85025; 93970; 99283; 99284

== ENCOUNTER → 2024-12-28 21:46 | Outpatient (BNV) | payer MEDICAID, SELFPAY | PROVIDERS: Emergency Provider Emergency Medicine; PCP Internal Medicine; Visit Provider Radiology Neuroradiology | DX: I82.412 Acute embolism and thrombosis of left femoral vein (principal) | CPT/HCPCS: 93970 ==

== ENCOUNTER 2025-02-04 16:36 | Inpatient (IN) | payer OTHER, SELFPAY ==
--- NOTE | ~2025-02-04 | XR_ITS ---
CLINICAL HISTORY: pain 1 view abdomen Comparison: None available Findings: Mild bibasilar atelectasis. Borderline cardiomegaly accentuated by technique and partially imaged. No small bowel dilatation in the imaged abdomen. Right-sided linear opacity appears superficial. Severe stool burden is present, including imaged cecum and including distally. Phleboliths are noted in the pelvis. Likely calcific tendinitis of the adjacent to left greater trochanter. Degenerative changes include imaged hips, with partial obscuration of the imaged femurs. Leftward curvature of the thoracolumbar junction. Additional superficial opacities present. IMPRESSION: 1. No small bowel obstruction. 2. Severe stool burden. This document has been electronically signed by: Jeremiah Calloway MD on 02/04/2025 19:18:21
[2025-02-04 16:52] VITALS: BP 114/72; PULSE 98; RESP 16; TEMP 36.6; O2SAT 96; BMI 29.5
--- NOTE | 2025-02-04 16:59 | ECG_ITS ---
Test Reason : QTC CHECK Blood Pressure : */* mmHG Vent. Rate : 86 BPM Atrial Rate : 86 BPM P-R Int : 154 ms QRS Dur : 70 ms QT Int : 360 ms P-R-T Axes : 69 63 37 degrees QTcB Int : 430 ms Normal sinus rhythm Nonspecific ST abnormality Abnormal ECG When compared with ECG of 04-Nov-2024 12:29, No significant change was found Referred By: Generic ED Physician Electronically Signed By: PEDRO JEREZ MD
[2025-02-04 17:41] LABS: Anion Gap 12 (12-20); Blood Urea Nitrogen 16 mg/dL (9-16); Calcium 9.4 mg/dL (8.4-10.2); Carbon Dioxide 27 mmol/L (22-29); Chloride 107 mmol/L (96-108); Estimated Glomerular Filt Rate > 60; Ethanol < 10 mg/dL; Glucose Random 86 mg/dL (60-115); Potassium 4.3 mmol/L (3.3-5.1); Salicylate < 5.0 mg/dL (15-30); Sodium 142 mmol/L (135-145)
[2025-02-04 17:53] LABS: Amphetamine Screen Urine Not Detected (Not Detect); Barbiturates, Urine Not Detected (Not Detect); Benzodiazepines Screen Urine Not Detected (Not Detect); Buprenorphine Scr Not Detected (Not Detect); Cannabinoid Screen Urine Not Detected (Not Detect); Cocaine Screen Urine Not Detected (Not Detect); Fentanyl, urine Not Detected (Not Detect); Methadone Screen, Urine Positive (Not Detect); Opiate Screen Urine Not Detected (Not Detect); Oxycodone Screen Urine Not Detected (Not Detect); Phencyclidine Screen Urine Not Detected (Not Detect)
[2025-02-04 17:58] LABS: Influenza A PCR NEGATIVE (Negative); Influenza B PCR NEGATIVE (Negative); Resp Syncy Virus RNA Qual PCR NEGATIVE (Negative); SARS COV2 PCR INHOUSE NEGATIVE (Negative)
[2025-02-04 18:42] LABS: HCG Quantitative 8 mIU/mL
[2025-02-04 19:01] LABS: Basophils Percent Auto 0.4 % (0-2); Eosinophils Absolute Auto 0.1 X10*3/uL (0.0-0.4); Eosinophils Percent Auto 2.4 % (0-4); Hematocrit 37.9 % (37.0-47.0); Hemoglobin 12.5 g/dl (12.0-16.0); Imm Gran Abs Auto 0.02 X10*3/uL (0.00-0.03); Imm Gran Pct Auto 0.4 % (0.0-0.4); Lymphocytes Absolute Auto 1.3 X10*3/uL (1.2-4.9); Lymphocytes Percent Auto 23.6 % (20-40); Mean Corpuscular Hemoglobin 29.1 pg (27.0-33.0); Mean Corpuscular Volume 88.1 fL (80.0-98.0); Mean Platelet Volume 10.5 fL (9.4-12.3); Monocytes Absolute Auto 0.5 X10*3/uL (0.1-1.2); Monocytes Percent Auto 9.3 % (2-11); Neutrophils Absolute Auto 3.5 x10*3/uL (2.0-8.3); Neutrophils Percent Auto 63.9 % (45-73); Platelet Count 197 X10*3/uL (160-400); Red Cell Distribution Width 13.5 % (11.0-16.0); White Blood Count 5.4 X10*3/uL (4.8-10.8)
--- NOTE | 2025-02-04 19:40 | PC.NURSE ---
ASTON Connell at bedside with staffing assistant to provide the patient with updates on the plan and new orders placed. The pt had two visitors arrive to bedside with all their belongings in hand, RN provided education to the visitors regarding need for belongings to be secured per our policy for safety. Pt has been calm and cooperative. provided with clearance to eat, and ate food provided to the her from family. Pt currenlty conversing with family at bedside, will finish her food and then be brought over to the POD for continued treatment pending careteam assessment.
--- NOTE | 2025-02-04 19:45 | ED.GENADULT ---
HPI - General Adult General Chief complaint: Psychiatric Symptoms Stated complaint: abd pain, headache, vomiting Time Seen by Provider: 02/04/25 18:08 Source: patient Limitations: language barrier History of Present Illness ED Provider: Mylene Taylor PA-C HPI narrative: 49-year-old female with a history of depression, anxiety, polysubstance abuse on methadone, DVT on apixaban, who presents with SI. Patient states she is having thoughts of self-harm, she states she has a plan, but is not forthcoming about details. From triage, I see that she stated she would ?overdose?. Patient states her family is accusing her of abusing illicit substances, she emphatically denies that she is. Patient also complains of generalized abdominal discomfort, not having regular bowel movements. Denies nausea vomiting or inability to pass flatus from below, no abdominal distention. Related Data Home Medications ?Medication ?Instructions ?Recorded ?Confirmed methadone 10 mg/mL oral 45 mg PO DAILY 11/02/23 02/04/25 concentrate (Methadone Intensol) Previous Rx's ?Medication ?Instructions ?Recorded apixaban 5 mg (74 tabs) tablets in See Rx Instructions .Route 12/29/24 a dose pack (Eliquis DVT-PE Treat .COMPLEX #74 ea 30D Start) Allergies Allergy/AdvReac Type Severity Reaction Status Date / Time seafood Allergy Intermediate Rash Verified 02/04/25 16:57 Review of Systems Review of Systems: Yes all other systems are reviewed and are negative Constitutional: Constitutional: Denies fatigue and Denies fever(s) Cardiovascular: Cardiovascular: Denies chest pain and Denies dyspnea Respiratory: Respiratory: Denies cough and Denies dyspnea Gastrointestinal: Gastrointestinal: Reports abdominal pain, Reports constipation, Denies diarrhea, Denies nausea and Denies vomiting Psychiatric: Psychiatric: Reports depression and Reports suicidal ideation Endocrine: Endocrine: Denies fatigue PMFSH Past Medical History Attestation statement: The following information was validated with the patient. Medical History Generalized anxiety disorder Major depression, single episode Surgical History History of shoulder surgery Social History Social History Household Members: Family Household Members Other:: Lives with sister & 14 others Housing: Apartment Do you presently have visiting nurse or other home services: No Alcohol intake: current Patient Tobacco Use Status: Current everyday Tobacco user Tobacco use type: Cigarette Cigarette Packs Per Day: 1 Cigarettes Per Day: 20.0 Smoked in Last 30 Days: Yes e-Cigarette/Vaping Use: Never Used Patient Interested in Nicotine Replacement: Yes Patient Given Instructions on How to Stop Smoking: Yes Date Education Initiated: 02/05/25 Second Hand Smoke Exposure: Yes Substance Use Type: Crack/Cocaine Currently Displaying Signs/Symptoms of Drug Intoxication Withdrawal: No Have you been hit, kicked, punched, or otherwise hurt by someone within the past year? If so, by whom?: No Do you feel safe in your current relationship?: No Current Relationship Is there a partner from a previous relationship who is making you feel unsafe now?: No Are you made to feel afraid or neglected: No Advance Directives: No Advance Directives Information Provided: Yes Do you have thoughts of harming others: None Do you have a plan to hurt others: No Plan Recently lost weight without trying: No Eating poorly because of decreased appetite: No Nutrition Risks: No Nutritional Risk Patient : No : No Poor oral hygiene: No service: No Current occupational status: unemployed Current occupation: right hand dominant Sexual orientation: Straight/Heterosexual Physical Exam ED Vital Signs: Vital Signs - 24 hr 02/04/25 16:52 02/04/25 21:52 02/04/25 22:04 Temperature 97.8 F 97.2 F Pulse Rate 98 75 Respiratory Rate 16 14 Blood Pressure 114/72 101/65 101/65 Pulse Oximetry 96 96 Oxygen Delivery Method Room Air Room Air BMI result Body Mass Index 29.5 Const Other: Alert, tearful crying, eating her lunch Orientation/consciousness: patient oriented x3 Resp Effort & Inspection: normal respiratory effort Cardio Other: Normal peripheral perfusion Skin Other: Warm dry no rash Neuro General: patient oriented x3, gait normal, no focal motor deficits and CN's II-XI intact bilaterally Psych Other: Cooperative Course Reevaluation(s) Reevaluation #1: Time: 23:04 Date: 02/04/25 Provider: ASTON Chavez Patient in physician observation for psychiatric evaluation.? No acute events reported overnight. No current complaints. VS stable.? Patient is in bed search status/pending CARE team evaluation. Will continue to monitor. speaking with Mary from the care team...Shamika has been sectioned and will be an [facility] bed search. Time: 23:03 Medications Administered Generic Name Dose Route Start Last Admin Trade Name Freq PRN Reason Stop Dose Admin Acetaminophen 650 mg 02/05/25 13:09 02/07/25 16:16 Acetaminophen 325 Mg Tablet PO 650 mg Q6H PRN Administration Headache/Pain, Scale 1-10 Al Hydroxide/Mg Hydroxide 30 ml 02/05/25 13:09 02/05/25 15:45 Magnesium Hydrox/Alum Hydrox 30 Ml Oral.Susp PO 30 ml Q6H PRN Administration Heartburn/Nausea Apixaban 5 mg 02/04/25 21:00 02/10/25 08:28 Apixaban 5 Mg Tablet PO 5 mg BID FRANCA Administration Famotidine 20 mg 02/06/25 09:00 02/10/25 08:28 Famotidine 20 Mg Tablet PO 20 mg DAILY FRANCA Administration Fluoxetine HCl 20 mg 02/06/25 14:00 02/10/25 08:28 Fluoxetine Hcl 20 Mg Capsule PO 20 mg DAILY FRANCA Administration Hydroxyzine HCl 25 mg 02/05/25 13:09 02/05/25 16:23 Hydroxyzine Hcl 25 Mg Tablet PO 25 mg Q6H PRN Administration mild anxiety Magnesium Hydroxide 30 ml 02/05/25 13:09 02/05/25 15:45 Milk Of Magnesia 30 Ml Oral.Susp PO 30 ml DAILY PRN Administration Constipation Methadone HCl 45 mg 02/05/25 09:00 02/10/25 08:26 Methadone Hcl 20 Mg/2 Ml Oral.Conc PO 45 mg DAILY FRANCA Administration Nicotine 21 mg 02/05/25 13:15 02/10/25 11:14 Nicotine 21 Mg Patch.Td24 TRANSDERMA 21 mg DAILY PRN Administration smoking cessation Nicotine Polacrilex 4 mg 02/05/25 13:15 02/05/25 15:55 Nicotine Polacrilex 2 Mg Gum BUCCAL 4 mg Q2H PRN Administration Nicotine Cravings Olanzapine 5 mg 02/05/25 13:15 02/06/25 17:53 Olanzapine 5 Mg Tablet PO 5 mg TID PRN Administration agitation Prazosin HCl 1 mg 02/09/25 21:00 02/09/25 21:19 Prazosin Hcl 1 Mg Capsule PO 1 mg BEDTIME FRANCA Administration Protocol Quetiapine Fumarate 100 mg 02/06/25 21:00 02/09/25 21:19 Quetiapine Fumarate 100 Mg Tablet PO 100 mg BEDTIME FRANCA Administration Trazodone HCl 100 mg 02/06/25 14:01 02/09/25 21:19 Trazodone Hcl 100 Mg Tablet PO 100 mg BEDTIME PRN Administration Insomnia Discontinued Medications Generic Name Dose Route Start Last Admin Trade Name Aleyda PRN Reason Stop Dose Admin Bisacodyl 10 mg 02/04/25 19:25 02/04/25 20:30 Bisacodyl 5 Mg Tablet.Dr PO 02/04/25 19:26 10 mg ONCE ONE Administration Famotidine 20 mg 02/05/25 15:48 02/05/25 15:54 Famotidine 20 Mg Tablet PO 02/05/25 15:49 20 mg ONCE ONE Administration Magnesium Hydroxide 30 ml 02/04/25 19:26 02/04/25 20:30 Milk Of Magnesia 30 Ml Oral.Susp PO 02/04/25 19:27 30 ml ONCE ONE Administration Prazosin HCl 5 mg 02/04/25 21:44 02/04/25 22:04 Prazosin Hcl 5 Mg Capsule PO 02/04/25 21:45 5 mg ONCE ONE Administration Protocol Trazodone HCl 100 mg 02/04/25 21:44 02/04/25 22:04 Trazodone Hcl 100 Mg Tablet PO 02/04/25 21:45 100 mg ONCE ONE Administration Trazodone HCl 50 mg 02/05/25 13:09 02/05/25 23:32 Trazodone Hcl 50 Mg Tablet PO 50 mg BEDTIME MRX1 PRN Administration Insomnia Medical Decision Making Medical Decision Making MDM Narrative: 49-year-old female with a history of depression, anxiety, polysubstance abuse on methadone, DVT on apixaban who presents with SI. Patient states she is having thoughts of self-harm, she states she has a plan, but is not forthcoming about details. From triage, I see that she stated she would ?overdose?. Patient states her family is accusing her of abusing illicit substances, she emphatically denies that she is. Patient also complains of generalized abdominal discomfort, not having regular bowel movements. Denies nausea vomiting or inability to pass flatus from below, no abdominal distention. Problem: Psychiatric illness, polysubstance abuse History: Per patient I have considered the following differential diagnoses: SI, HI, decompensated psychiatric illness, drug/alcohol intoxication Plan: Screening labs including drug screen and ethanol we will be obtained, I ordered a screening x-ray, the patient is constipated, she was given medications to help alleviate her stool burden. She is eating drinking, she clearly does not require advanced imaging to rule out bowel obstruction. We will place a care team consult now. I have independently reviewed the following tests: Labs: No leukocytosis, not anemic, no electrolyte abnormality noted, ethanol negative, U tox only positive for methadone KUB: IMPRESSION: 1. No small bowel obstruction. 2. Severe stool burden. Lab Data 02/04/25 18:53 02/06/25 08:20 Labs: Lab Results 02/04/25 02/04/25 02/04/25 Range/Units 17:15 17:34 18:53 WBC 5.4 (4.8-10.8) X10*3/uL RBC 4.30 (4.20-5.50) X10*6/uL Hgb 12.5 (12.0-16.0) g/dl Hct 37.9 (37.0-47.0) % MCV 88.1 (80.0-98.0) fL MCH 29.1 (27.0-33.0) pg MCHC 33.0 (31.0-35.0) g/dl RDW 13.5 (11.0-16.0) % Plt Count 197 (160-400) X10*3/uL MPV 10.5 (9.4-12.3) fL Immature Gran % (Auto) 0.4 (0.0-0.4) % Neut % (Auto) 63.9 (45-73) % Lymph % (Auto) 23.6 (20-40) % [place] % (Auto) 9.3 (2-11) % Eos % (Auto) 2.4 (0-4) % Baso % (Auto) 0.4 (0-2) % Lymph # (Auto) 1.3 (1.2-4.9) X10*3/uL [place] # (Auto) 0.5 (0.1-1.2) X10*3/uL Eos # (Auto) 0.1 (0.0-0.4) X10*3/uL Baso # (Auto) 0.0 (0.0-0.2) X10*3/uL Abs Immat Gran (auto) 0.02 (0.00-0.03) X10*3/uL Absolute Neuts (auto) 3.5 (2.0-8.3) x10*3/uL Absolute Nucleated RBC 0.000 (0.0-0.012) X10*3/uL Nucleated RBC % (auto) 0.0 (0.0-0.2) /100WBC Sodium 142 (135-145) mmol/L Potassium 4.3 (3.3-5.1) mmol/L Chloride 107 (96-108) mmol/L Carbon Dioxide 27 (22-29) mmol/L Anion Gap 12 (12-20) BUN 16 (9-16) mg/dL Creatinine 0.86 (0.5-1.4) mg/dL Estim Creat Clear Calc 64.0 Estimated GFR > 60 Random Glucose 86 (60-115) mg/dL Calcium 9.4 (8.4-10.2) mg/dL Beta HCG, Quant 8 mIU/mL Urine Color Dark Yellow Urine Appearance Clear Urine pH 5.5 (5.0-9.0) Ur Specific [place] >= 1.030 H (1.005-1.025) Urine Protein Trace (Neg-Trace) mg/dL Urine Glucose (UA) Negative (Negative) mg/dL Urine Ketones Trace (Negative) mg/dL Urine Blood Negative (Negative) Urine Nitrite Negative (Negative) Ur Leukocyte Esterase Negative (Negative) Salicylates < 5.0 L (15-30) mg/dL Urine Opiates Screen Not Detected (Not Detect) Ur Buprenorphine Scrn Not Detected (Not Detect) ng/mL Ur Oxycodone Screen Not Detected (Not Detect) ng/mL Urine Methadone Screen Positive H (Not Detect) ng/mL Urine Fentanyl Screen Not Detected (Not Detect) Ur Barbiturates Screen Not Detected (Not Detect) Ur Phencyclidine Scrn Not Detected (Not Detect) Ur Amphetamines Screen Not Detected (Not Detect) U Benzodiazepines Scrn Not Detected (Not Detect) Urine Cocaine Screen Not Detected (Not Detect) U Marijuana (THC) Screen Not Detected (Not Detect) Ethyl Alcohol < 10 mg/dL Influenza Type A (PCR) NEGATIVE (Negative) Influenza Type B (PCR) NEGATIVE (Negative) RSV RNA Qual (PCR) NEGATIVE (Negative) SARS-CoV-2 RNA (RT-PCR) NEGATIVE (Negative) Discharge Plan Discharge Clinical Impression: Suicidal ideation, Constipation Patient Disposition: Admitted As Inpatient Interventions: Admission Worksheet (ED) Last Done: 02/05/25 14:26 Discharge Date/Time: 02/05/25 14:27
[2025-02-04 20:13] LABS: Appearance Urine Clear; Color Urine Dark Yellow; Glucose Urine UA Negative (Negative); Leukocyte Esterase Urine Negative (Negative); Nitrite Urine Negative (Negative); PH 5.5 (5.0-9.0); Specific Gravity - Urine >= 1.030 (1.005-1.025); Urine Blood Negative (Negative); Urine Ketones Trace mg/dL (Negative); Urine Protein Trace mg/dL (Neg-Trace)
[2025-02-04] MEDS: bisacodyL 5 MG TABLET.DR 10 MG PO (20:30)
[2025-02-04] MEDS: Milk of Magnesia 30 ML ORAL.SUSP PO (20:30)
--- NOTE | 2025-02-04 20:36 | HE.PHANOTE ---
RE: METHADONE DOSING Patient received 45 mg at [facility] [phone] on 01/14/25 @0544 with take home doses until 02/10/25 per Leonel at [facility]. Per nurse Liang, patient said she took her dose today 02/04/25 at home.
[2025-02-04 21:52] VITALS: BP 101/65; PULSE 75; RESP 14; TEMP 36.2; O2SAT 96
[2025-02-04 22:04] VITALS: BP 101/65
[2025-02-04] MEDS: traZODone HCL 100 MG TABLET PO (22:04)
[2025-02-04] MEDS: Apixaban 5 MG TABLET PO (22:04)
[2025-02-04] MEDS: Prazosin HCL 5 MG CAPSULE PO (22:04)
--- NOTE | 2025-02-05 06:16 | PC.NURSE ---
Patient slept through the night, no distress observed/reported, meds and meals compliant, 15 minutes safety check, no behavior and safety concerns, disposition per care team is section 12 inpatient bed search, will continue to monitor
[2025-02-05 06:18] VITALS: BP 98/52; PULSE 69; RESP 16; TEMP 36.4; O2SAT 95
--- NOTE | 2025-02-05 07:09 | PC.NURSE ---
Assumed care of patient at 0645, patient appears to be in no apparent distress this am, sleeping, respirations even and unlabored. Continue plan of care for IPLOC
[2025-02-05] MEDS: methADONE HCl 20 MG/2 ML ORAL.CONC 45 MG PO (08:19)
[2025-02-05] MEDS: Apixaban 5 MG TABLET PO ×2 (08:27→21:30)
[2025-02-05 13:36] VITALS: BP 110/78; PULSE 66; RESP 16; TEMP 36.2; O2SAT 98
[2025-02-05 14:36] VITALS: BP 131/80; PULSE 80; RESP 18; O2SAT 98
--- NOTE | 2025-02-05 14:45 | PC.ADMIT ---
Pt arrived to the unit at 1420. manager recovery/contraband search completed by 2 RN's. Pt placed on 15 minute safety checks. Oriented to unit. Pt is currently a 12B at this time but is willing to sign a CV with provider. Pt was brought in originally for abdominal pain. KUB showed severe stool burden but no obstruction. Pt then disclosed passive SI. Pt became suicidal because her sister whom she currently resides with was accusing her of being on illegal drugs. Pt's tox screen in the ER was negative. Pt also reports she has not been able to sleep d/t living in an apartment with her sister & 14 other individuals. Pt did sign legals. Pt is a current everyday smoker and requests the Nicotine patch. Reports anxiety & depression but no longer has SI at this time. Denies AVH but reports she has had AVH in the past. Pt is on Methadone 45mg QD which was verified in ER. Pt utilizes [facility] for Methadone. Pt does have a history of MDD, DU, and SA. Pt also is on Apixaban for a DVT. Pt has a history of multiple inpatient psychiatric admissions. Allergies to Seafood. VSS. EKG NSR with ST abnormality.
[2025-02-05] MEDS: Magnesium Hydrox/Alum Hydrox 30 ML ORAL.SUSP PO (15:45)
[2025-02-05] MEDS: Milk of Magnesia 30 ML ORAL.SUSP PO (15:45)
[2025-02-05] MEDS: Nicotine 21 MG PATCH.TD24 TRANSDERMA (15:54)
[2025-02-05] MEDS: Famotidine 20 MG TABLET PO (15:54)
[2025-02-05] MEDS: Nicotine Polacrilex 2 MG GUM 4 MG BUCCAL (15:55)
[2025-02-05] MEDS: hydrOXYzine HCL 25 MG TABLET PO (16:23)
[2025-02-05 20:00] VITALS: BP 96/55; PULSE 63; TEMP 36.4; O2SAT 92
[2025-02-05] MEDS: Acetaminophen 325 MG TABLET 650 MG PO (21:30)
[2025-02-05] MEDS: traZODone HCL 50 MG TABLET PO (23:32)
[2025-02-06] MEDS: methADONE HCl 20 MG/2 ML ORAL.CONC 45 MG PO (07:58)
[2025-02-06 08:00] VITALS: BP 112/59; PULSE 60; RESP 16; TEMP 36.5; O2SAT 97
[2025-02-06 08:51] LABS: Estimated Average Glucose 108 mg/dL; Hemoglobin A1C 125.6575 umol/L; Hemoglobin A1c % 5.4 % (<6.0); Total Hemoglobin (HGBA1C) 3486.2358 umol/L
[2025-02-06] MEDS: Famotidine 20 MG TABLET PO (09:02)
[2025-02-06] MEDS: Apixaban 5 MG TABLET PO ×2 (09:02→22:26)
[2025-02-06 09:03] LABS: Alanine Aminotransferase 59 U/L (0-31); Albumin Level 3.8 g/dL (3.5-5.0); Alkaline Phosphatase 78 U/L (39-117); Anion Gap 11 (12-20); Aspartate Amino Transferase 33 U/L (5-31); Bilirubin Total 0.4 mg/dL (0.0-1.0); Blood Urea Nitrogen 14 mg/dL (9-16); Calcium 9.2 mg/dL (8.4-10.2); Carbon Dioxide 32 mmol/L (22-29); Chloride 106 mmol/L (96-108); Cholesterol 149 mg/dL (<200); Creatinine Clr Calc Pharmacy 72.4; Estimated Glomerular Filt Rate > 60; Glucose Random 94 mg/dL (60-115); HDL Cholesterol 41 mg/dL (>40); LDL Cholesterol Calculated 85 mg/dL (<100); Potassium 4.5 mmol/L (3.3-5.1); Sodium 144 mmol/L (135-145); Triglycerides 115 mg/dL (<150)
--- NOTE | 2025-02-06 11:21 | HO.PSYADMNOT ---
[facility] Date of Service: 02/06/25 Chief Complaint: SI Sources of Information: patient interviewed, chart reviewed and crisis/core team assessment reviewed HPI Subjective Notes: Rousseau Warning Narrative: Patient is a 49-year-old female with history of MDD, PTSD, opiate disorder and cocaine use disorder who self presented to [facility] due to suicidal ideation with a plan to overdose secondary to increased depression. Per crisis report, patient self presented to [facility] due to worsening depression and suicidal ideations with plan to overdose. Patient reports an argument between her and her sister that precipitated the events leading up to her ER admission. She reports being accused of using substances on several occasions since Sunday which upset her and disrupted her mood. She feels her sister does not trust her and was not listening to her. Patient denied HI/VH/AH. She reports poor sleep and appetite. U tox negative for all substances other than methadone which she is prescribed. During admission assessment, patient presents alert and oriented x3. Calm and cooperative. outpatient coding specialist present. Patient reports feeling depressed; patient stated, I have been having problems with my sister. A lot of people are living at her house. It makes me want to run out of there and hurt myself. My sister was making indirect comments to bother me. Instead of hurting myself I went to get help . Patient reports her sister was accusing her of using substances however she has been sober for 3 years. Patient reports she would like her psychiatric medications looked at to help with her sleep and mood and to obtain a referral to a homeless penitentiary. Patient denies SI/HI/VH/AH at this time. Past Psychiatric History: History of multiple inpatient psychiatric hospitalizations. has counselling at methadone clinic Outpatient prescriber: Dr. Encarnacion Patient reports history of multiple suicide attempts. History of self-injurious behavior via cutting. Medical Evaluation Reviewed: Yes [facility] Medical History Generalized anxiety disorder Major depression, single episode Surgical History History of shoulder surgery Family History: lives with sister. Single. Six adult children. Unemployed. Social History: Sister: Depression Substance History: History of using heroin, cocaine. Three years of sobriety. Trauma History: yes Diagnostics Vital Signs (24Hr): Vital Signs - 24 hr 02/05/25 13:36 02/05/25 14:36 02/05/25 20:00 Temperature 97.1 F 97.5 F Pulse Rate 66 80 63 Respiratory Rate 16 18 Blood Pressure 110/78 131/80 96/55 L Pulse Oximetry 98 98 92 Oxygen Delivery Method Room Air Room Air Room Air 02/06/25 08:00 Temperature 97.7 F Pulse Rate 60 Respiratory Rate 16 Blood Pressure 112/59 L Pulse Oximetry 97 Oxygen Delivery Method Room Air BMI result Body Mass Index 29.5 Labs 02/04/25 18:53 02/06/25 08:20 Labs: Laboratory Results - last 48 hr 02/04/25 02/04/25 02/04/25 17:15 17:34 18:53 WBC 5.4 RBC 4.30 Hgb 12.5 Hct 37.9 MCV 88.1 MCH 29.1 MCHC 33.0 RDW 13.5 Plt Count 197 MPV 10.5 Immature Gran % (Auto) 0.4 Neut % (Auto) 63.9 Lymph % (Auto) 23.6 [place] % (Auto) 9.3 Eos % (Auto) 2.4 Baso % (Auto) 0.4 Lymph # (Auto) 1.3 [place] # (Auto) 0.5 Eos # (Auto) 0.1 Baso # (Auto) 0.0 Abs Immat Gran (auto) 0.02 Absolute Neuts (auto) 3.5 Absolute Nucleated RBC 0.000 Nucleated RBC % (auto) 0.0 Sodium 142 Potassium 4.3 Chloride 107 Carbon Dioxide 27 Anion Gap 12 BUN 16 Creatinine 0.86 Estim Creat Clear Calc 64.0 Estimated GFR > 60 Random Glucose 86 Estimat Average Glucose Hemoglobin A1c % Calcium 9.4 Total Bilirubin AST ALT Alkaline Phosphatase Total Protein Albumin Triglycerides Cholesterol LDL Cholesterol, Calc HDL Cholesterol TSH Beta HCG, Quant 8 Urine Color Dark Yellow Urine Appearance Clear Urine pH 5.5 Ur Specific [place] >= 1.030 H Urine Protein Trace Urine Glucose (UA) Negative Urine Ketones Trace Urine Blood Negative Urine Nitrite Negative Ur Leukocyte Esterase Negative Salicylates < 5.0 L Urine Opiates Screen Not Detected Ur Buprenorphine Scrn Not Detected Ur Oxycodone Screen Not Detected Urine Methadone Screen Positive H Urine Fentanyl Screen Not Detected Ur Barbiturates Screen Not Detected Ur Phencyclidine Scrn Not Detected Ur Amphetamines Screen Not Detected U Benzodiazepines Scrn Not Detected Urine Cocaine Screen Not Detected U Marijuana (THC) Screen Not Detected Ethyl Alcohol < 10 Influenza Type A (PCR) NEGATIVE Influenza Type B (PCR) NEGATIVE RSV RNA Qual (PCR) NEGATIVE SARS-CoV-2 RNA (RT-PCR) NEGATIVE 02/06/25 08:20 WBC RBC Hgb Hct MCV MCH MCHC RDW Plt Count MPV Immature Gran % (Auto) Neut % (Auto) Lymph % (Auto) [place] % (Auto) Eos % (Auto) Baso % (Auto) Lymph # (Auto) [place] # (Auto) Eos # (Auto) Baso # (Auto) Abs Immat Gran (auto) Absolute Neuts (auto) Absolute Nucleated RBC Nucleated RBC % (auto) Sodium 144 Potassium 4.5 Chloride 106 Carbon Dioxide 32 H Anion Gap 11 L BUN 14 Creatinine 0.76 Estim Creat Clear Calc 72.4 Estimated GFR > 60 Random Glucose 94 Estimat Average Glucose 108 Hemoglobin A1c % 5.4 Calcium 9.2 Total Bilirubin 0.4 AST 33 H ALT 59 H Alkaline Phosphatase 78 Total Protein 7.0 Albumin 3.8 Triglycerides 115 Cholesterol 149 LDL Cholesterol, Calc 85 HDL Cholesterol 41 TSH 2.30 Beta HCG, Quant Urine Color Urine Appearance Urine pH Ur Specific [place] Urine Protein Urine Glucose (UA) Urine Ketones Urine Blood Urine Nitrite Ur Leukocyte Esterase Salicylates Urine Opiates Screen Ur Buprenorphine Scrn Ur Oxycodone Screen Urine Methadone Screen Urine Fentanyl Screen Ur Barbiturates Screen Ur Phencyclidine Scrn Ur Amphetamines Screen U Benzodiazepines Scrn Urine Cocaine Screen U Marijuana (THC) Screen Ethyl Alcohol Influenza Type A (PCR) Influenza Type B (PCR) RSV RNA Qual (PCR) SARS-CoV-2 RNA (RT-PCR) Meds/Allergies Meds Home Medications ?Medication ?Instructions ?Recorded ?Confirmed ?Type methadone 10 mg/mL oral 45 mg PO DAILY 11/02/23 02/04/25 History concentrate (Methadone Intensol) Allergies Allergies Allergy/AdvReac Type Severity Reaction Status Date / Time seafood Allergy Intermediate Rash Verified 02/04/25 16:57 Mental Status Exam Mental Status Exam Patient Appearance: Appropriate Patient Orientation: Person, Place, Time and Situation Level of Consciousness: Awake and Alert Patient Behavior: Appropriate, Cooperative and Good Eye Contact Mood Description: Depressed Affect Description: Constricted Ability to Follow Directions: Good Speech Pattern: Clear and Appropriate Memory Description: Intact Hallucinations: None Delusions: Not Present Thought Process: Intact Thought Content: positive for Intact Assessment & Plan Assessment & Plan (1) MDD (major depressive disorder), recurrent episode: Status: Acute Code(s): F33.9 - Major depressive disorder, recurrent, unspecified (2) PTSD (post-traumatic stress disorder): Status: Acute Code(s): F43.10 - Post-traumatic stress disorder, unspecified (3) Opioid use disorder in remission: Status: Acute Code(s): F11.91 - Opioid use, unspecified, in remission (4) Cocaine use disorder in remission: Status: Acute Code(s): F14.91 - Cocaine use, unspecified, in remission Plan Patient is a 49-year-old female with history of MDD, PTSD, opiate disorder and cocaine use disorder who self presented to [facility] due to suicidal ideation with a plan to overdose secondary to increased depression. Plan: 15 minute safety checks Obtain collateral Reviewed previous home medications Start: Fluoxetine 20 mg PO daily Seroquel 100 mg PO bedtime Trazodone 100 mg PO bedtime PRN Encourage groups Referral to penitentiary Discharge planning Patient educated on: diagnosis and medication risk/benefits Reason for continued inpatient stay Substantial Risk for: med/psych decompensation Statement Statement: I have reviewed the history and physical and performed a pertinent examination on my patient. No changes have occurred unless specified. If the History and Physical was not performed prior to admission, the Hospitalist's service will be consulted for completing the admission physical. Time Spent With Patient Time: Total time managing care of this patient today _60___ minutes.
[2025-02-06] MEDS: Nicotine 21 MG PATCH.TD24 TRANSDERMA (11:50)
[2025-02-06] MEDS: FLUoxetine HCl 20 MG CAPSULE PO (14:54)
[2025-02-06] MEDS: OLANZapine 5 MG TABLET PO (17:53)
[2025-02-06] MEDS: Acetaminophen 325 MG TABLET 650 MG PO (18:50)
[2025-02-06 20:00] VITALS: BP 140/80; PULSE 70; RESP 16; TEMP 36.4; O2SAT 98
[2025-02-06] MEDS: QUEtiapine Fumarate 100 MG TABLET PO (22:26)
[2025-02-06] MEDS: traZODone HCL 100 MG TABLET PO (22:26)
[2025-02-07] MEDS: methADONE HCl 20 MG/2 ML ORAL.CONC 45 MG PO (07:54)
[2025-02-07 08:00] VITALS: BP 106/58; PULSE 59; TEMP 36.4; O2SAT 96
[2025-02-07] MEDS: Nicotine 21 MG PATCH.TD24 TRANSDERMA (09:01)
[2025-02-07] MEDS: Famotidine 20 MG TABLET PO (09:02)
[2025-02-07] MEDS: Apixaban 5 MG TABLET PO ×2 (09:02→21:09)
[2025-02-07] MEDS: FLUoxetine HCl 20 MG CAPSULE PO (09:02)
--- NOTE | 2025-02-07 10:37 | P.PNPSI_ITS ---
Subjective Subjective Date of Service: 02/07/25 Reason For Visit: SI Subjective Notes: Conditional Voluntary Interim History: Patient was seen and discussed in rounds today. Records and plans were reviewed. She has been doing better with less depression and anxiety. Come and cooperative. Mostly seclusive. Eating and sleeping adequately. No side effects. No SI. No changes were made today Review of Systems Review of Systems Yes all other systems are reviewed and are negative Mental Status Exam Mental Status Exam Patient Appearance: Appropriate Patient Orientation: Person, Place, Time and Situation Level of Consciousness: Awake and Alert Patient Behavior: Appropriate, Cooperative and Good Eye Contact Mood Description: Depressed Affect Description: Constricted Ability to Follow Directions: Good Speech Pattern: Clear and Appropriate Memory Description: Intact Hallucinations: None Delusions: Not Present Thought Process: Intact Thought Content: positive for Intact Diagnostics Vital Signs (24Hr): Vital Signs - 24 hr 02/06/25 20:00 02/07/25 08:00 Temperature 97.6 F 97.6 F Pulse Rate 70 59 Respiratory Rate 16 Blood Pressure 140/80 H 106/58 L Pulse Oximetry 98 96 Oxygen Delivery Method Room Air Room Air BMI result Body Mass Index 29.5 Labs 02/04/25 18:53 02/06/25 08:20 Labs: Laboratory Results - last 48 hr 02/06/25 08:20 Sodium 144 Potassium 4.5 Chloride 106 Carbon Dioxide 32 H Anion Gap 11 L BUN 14 Creatinine 0.76 Estim Creat Clear Calc 72.4 Estimated GFR > 60 Random Glucose 94 Estimat Average Glucose 108 Hemoglobin A1c % 5.4 Calcium 9.2 Total Bilirubin 0.4 AST 33 H ALT 59 H Alkaline Phosphatase 78 Total Protein 7.0 Albumin 3.8 Triglycerides 115 Cholesterol 149 LDL Cholesterol, Calc 85 HDL Cholesterol 41 TSH 2.30 Medications Medications Current Medications Acetaminophen (Acetaminophen 325 Mg Tablet) 650 mg PO Q6H PRN PRN Reason: Headache/Pain, Scale 1-10 Last Admin: 02/06/25 18:50 Dose: 650 mg Al Hydroxide/Mg Hydroxide (Magnesium Hydrox/Alum Hydrox 30 Ml Oral.Susp) 30 ml PO Q6H PRN PRN Reason: Heartburn/Nausea Last Admin: 02/05/25 15:45 Dose: 30 ml Apixaban (Apixaban 5 Mg Tablet) 5 mg PO BID [facility] Last Admin: 02/07/25 09:02 Dose: 5 mg Famotidine (Famotidine 20 Mg Tablet) 20 mg PO DAILY [facility] Last Admin: 02/07/25 09:02 Dose: 20 mg Fluoxetine HCl (Fluoxetine Hcl 20 Mg Capsule) 20 mg PO DAILY [facility] Last Admin: 02/07/25 09:02 Dose: 20 mg Hydroxyzine HCl (Hydroxyzine Hcl 25 Mg Tablet) 25 mg PO Q6H PRN PRN Reason: mild anxiety Last Admin: 02/05/25 16:23 Dose: 25 mg Magnesium Hydroxide (Milk Of Magnesia 30 Ml Oral.Susp) 30 ml PO DAILY PRN PRN Reason: Constipation Last Admin: 02/05/25 15:45 Dose: 30 ml Methadone HCl (Methadone Hcl 20 Mg/2 Ml Oral.Conc) 45 mg PO DAILY [facility] Last Admin: 02/07/25 07:54 Dose: 45 mg Nicotine (Nicotine 21 Mg Patch.Td24) 21 mg TRANSDERMA DAILY PRN PRN Reason: smoking cessation Last Admin: 02/07/25 09:01 Dose: 21 mg Nicotine Polacrilex (Nicotine Polacrilex 2 Mg Gum) 4 mg BUCCAL Q2H PRN PRN Reason: Nicotine Cravings Last Admin: 02/05/25 15:55 Dose: 4 mg Olanzapine (Olanzapine 5 Mg Tablet) 5 mg PO TID PRN PRN Reason: agitation Last Admin: 02/06/25 17:53 Dose: 5 mg Quetiapine Fumarate (Quetiapine Fumarate 100 Mg Tablet) 100 mg PO BEDTIME [facility] Last Admin: 02/06/25 22:26 Dose: 100 mg Trazodone HCl (Trazodone Hcl 100 Mg Tablet) 100 mg PO BEDTIME PRN PRN Reason: Insomnia Last Admin: 02/06/25 22:26 Dose: 100 mg Allergies Allergies Allergy/AdvReac Type Severity Reaction Status Date / Time seafood Allergy Intermediate Rash Verified 02/04/25 16:57 Assessment & Plan Assessment & Plan (1) MDD (major depressive disorder), recurrent episode: Status: Acute Code(s): F33.9 - Major depressive disorder, recurrent, unspecified (2) PTSD (post-traumatic stress disorder): Status: Acute Code(s): F43.10 - Post-traumatic stress disorder, unspecified (3) Opioid use disorder in remission: Status: Acute Code(s): F11.91 - Opioid use, unspecified, in remission (4) Cocaine use disorder in remission: Status: Acute Code(s): F14.91 - Cocaine use, unspecified, in remission Plan Patient is a 49-year-old female with history of MDD, PTSD, opiate disorder and cocaine use disorder who self presented to [facility] ER due to suicidal ideation with a plan to overdose secondary to increased depression. Plan: 15 minute safety checks Obtain collateral Reviewed previous home medications Start: Fluoxetine 20 mg PO daily Seroquel 100 mg PO bedtime Trazodone 100 mg PO bedtime PRN Encourage groups Referral to [facility] Discharge planning 02/07: Continue current regimen and plans. Reason for continued inpatient stay Substantial Risk for: med/psych decompensation Time Spent With Patient Time: Total time managing care of this patient today ____ minutes.
[2025-02-07] MEDS: Acetaminophen 325 MG TABLET 650 MG PO (16:16)
[2025-02-07 19:50] VITALS: BP 105/67; PULSE 78; TEMP 37.6; O2SAT 96
[2025-02-07] MEDS: QUEtiapine Fumarate 100 MG TABLET PO (21:09)
[2025-02-07] MEDS: traZODone HCL 100 MG TABLET PO (21:09)
[2025-02-08 08:00] VITALS: BP 126/58; PULSE 55; RESP 16; TEMP 36.5; O2SAT 93
--- NOTE | 2025-02-08 09:25 | P.PNPSI_ITS ---
Subjective Subjective Date of Service: 02/08/25 Reason For Visit: SI Subjective Notes: Conditional Voluntary Interim History: Patient was seen and discussed in rounds today. Records and plans were reviewed. She continues to be very seclusive, mostly in her room, and her bed. Still endorses depression and anxiety. She does come out. Eating and sleeping adequately. No SI. No complaints or side effects. No changes were made today Review of Systems Review of Systems Yes all other systems are reviewed and are negative Mental Status Exam Mental Status Exam Patient Appearance: Appropriate Patient Orientation: Person, Place, Time and Situation Level of Consciousness: Awake and Alert Patient Behavior: Appropriate, Cooperative and Good Eye Contact Mood Description: Depressed Affect Description: Constricted Ability to Follow Directions: Good Speech Pattern: Clear and Appropriate Memory Description: Intact Hallucinations: None Delusions: Not Present Thought Process: Intact Thought Content: positive for Intact Diagnostics Vital Signs (24Hr): Vital Signs - 24 hr 02/07/25 19:50 02/08/25 08:00 Temperature 99.7 F 97.7 F Pulse Rate 78 55 Respiratory Rate 16 Blood Pressure 105/67 126/58 L Pulse Oximetry 96 93 Oxygen Delivery Method Room Air Room Air BMI result Body Mass Index 29.5 Labs 02/04/25 18:53 02/06/25 08:20 Medications Medications Current Medications Acetaminophen (Acetaminophen 325 Mg Tablet) 650 mg PO Q6H PRN PRN Reason: Headache/Pain, Scale 1-10 Last Admin: 02/07/25 16:16 Dose: 650 mg Al Hydroxide/Mg Hydroxide (Magnesium Hydrox/Alum Hydrox 30 Ml Oral.Susp) 30 ml PO Q6H PRN PRN Reason: Heartburn/Nausea Last Admin: 02/05/25 15:45 Dose: 30 ml Apixaban (Apixaban 5 Mg Tablet) 5 mg PO BID [facility] Last Admin: 02/07/25 21:09 Dose: 5 mg Famotidine (Famotidine 20 Mg Tablet) 20 mg PO DAILY [facility] Last Admin: 02/07/25 09:02 Dose: 20 mg Fluoxetine HCl (Fluoxetine Hcl 20 Mg Capsule) 20 mg PO DAILY [facility] Last Admin: 02/07/25 09:02 Dose: 20 mg Hydroxyzine HCl (Hydroxyzine Hcl 25 Mg Tablet) 25 mg PO Q6H PRN PRN Reason: mild anxiety Last Admin: 02/05/25 16:23 Dose: 25 mg Magnesium Hydroxide (Milk Of Magnesia 30 Ml Oral.Susp) 30 ml PO DAILY PRN PRN Reason: Constipation Last Admin: 02/05/25 15:45 Dose: 30 ml Methadone HCl (Methadone Hcl 20 Mg/2 Ml Oral.Conc) 45 mg PO DAILY [facility] Last Admin: 02/07/25 07:54 Dose: 45 mg Nicotine (Nicotine 21 Mg Patch.Td24) 21 mg TRANSDERMA DAILY PRN PRN Reason: smoking cessation Last Admin: 02/07/25 09:01 Dose: 21 mg Nicotine Polacrilex (Nicotine Polacrilex 2 Mg Gum) 4 mg BUCCAL Q2H PRN PRN Reason: Nicotine Cravings Last Admin: 02/05/25 15:55 Dose: 4 mg Olanzapine (Olanzapine 5 Mg Tablet) 5 mg PO TID PRN PRN Reason: agitation Last Admin: 02/06/25 17:53 Dose: 5 mg Quetiapine Fumarate (Quetiapine Fumarate 100 Mg Tablet) 100 mg PO BEDTIME [facility] Last Admin: 02/07/25 21:09 Dose: 100 mg Trazodone HCl (Trazodone Hcl 100 Mg Tablet) 100 mg PO BEDTIME PRN PRN Reason: Insomnia Last Admin: 02/07/25 21:09 Dose: 100 mg Allergies Allergies Allergy/AdvReac Type Severity Reaction Status Date / Time seafood Allergy Intermediate Rash Verified 02/04/25 16:57 Assessment & Plan Assessment & Plan (1) MDD (major depressive disorder), recurrent episode: Status: Acute Code(s): F33.9 - Major depressive disorder, recurrent, unspecified (2) PTSD (post-traumatic stress disorder): Status: Acute Code(s): F43.10 - Post-traumatic stress disorder, unspecified (3) Opioid use disorder in remission: Status: Acute Code(s): F11.91 - Opioid use, unspecified, in remission (4) Cocaine use disorder in remission: Status: Acute Code(s): F14.91 - Cocaine use, unspecified, in remission Plan Patient is a 49-year-old female with history of MDD, PTSD, opiate disorder and cocaine use disorder who self presented to [facility] ER due to suicidal ideation with a plan to overdose secondary to increased depression. Plan: 15 minute safety checks Obtain collateral Reviewed previous home medications Start: Fluoxetine 20 mg PO daily Seroquel 100 mg PO bedtime Trazodone 100 mg PO bedtime PRN Encourage groups Referral to [facility] Discharge planning 02/07: Continue current regimen and plans. 02/08: Continue current regimen and plans. Reason for continued inpatient stay Substantial Risk for: med/psych decompensation Time Spent With Patient Time: Total time managing care of this patient today ____ minutes.
[2025-02-08] MEDS: Nicotine 21 MG PATCH.TD24 TRANSDERMA (09:56)
[2025-02-08] MEDS: methADONE HCl 20 MG/2 ML ORAL.CONC 45 MG PO (09:57)
[2025-02-08] MEDS: Famotidine 20 MG TABLET PO (09:58)
[2025-02-08] MEDS: FLUoxetine HCl 20 MG CAPSULE PO (09:58)
[2025-02-08] MEDS: Apixaban 5 MG TABLET PO ×2 (09:58→20:37)
[2025-02-08 20:36] VITALS: BP 104/64; PULSE 86; TEMP 36.6; O2SAT 97
[2025-02-08] MEDS: QUEtiapine Fumarate 100 MG TABLET PO (20:37)
[2025-02-08] MEDS: traZODone HCL 100 MG TABLET PO (20:37)
[2025-02-09 08:00] VITALS: BP 120/56; PULSE 89; RESP 18; TEMP 36.9; O2SAT 97
[2025-02-09] MEDS: FLUoxetine HCl 20 MG CAPSULE PO (08:40)
[2025-02-09] MEDS: methADONE HCl 20 MG/2 ML ORAL.CONC 45 MG PO (08:40)
[2025-02-09] MEDS: Apixaban 5 MG TABLET PO ×2 (08:41→21:18)
[2025-02-09] MEDS: Famotidine 20 MG TABLET PO (08:41)
--- NOTE | 2025-02-09 14:10 | HO.PSYCHPN ---
Subjective Subjective Date of Service: 02/09/25 Reason For Visit: SI Subjective Notes: Conditional Voluntary Interim History: Patient reports feeling better today; she reports improved sleep and mood over the weekend. denies SI/HI/VH/AH. Pt focused on obtaining nursing home bed prior to discharge; social and human services assistant aware. Medication Compliance: Yes Side effects from medications: No Attending Groups: Yes Diagnostics Vital Signs (24Hr): Vital Signs - 24 hr 02/08/25 20:36 02/09/25 08:00 Temperature 97.8 F 98.4 F Pulse Rate 86 89 Respiratory Rate 18 Blood Pressure 104/64 120/56 L Pulse Oximetry 97 97 Oxygen Delivery Method Room Air Room Air BMI result Body Mass Index 29.5 Labs 02/04/25 18:53 02/06/25 08:20 Medications Medications Current Medications Acetaminophen (Acetaminophen 325 Mg Tablet) 650 mg PO Q6H PRN PRN Reason: Headache/Pain, Scale 1-10 Last Admin: 02/07/25 16:16 Dose: 650 mg Al Hydroxide/Mg Hydroxide (Magnesium Hydrox/Alum Hydrox 30 Ml Oral.Susp) 30 ml PO Q6H PRN PRN Reason: Heartburn/Nausea Last Admin: 02/05/25 15:45 Dose: 30 ml Apixaban (Apixaban 5 Mg Tablet) 5 mg PO BID [facility] Last Admin: 02/09/25 08:41 Dose: 5 mg Famotidine (Famotidine 20 Mg Tablet) 20 mg PO DAILY [facility] Last Admin: 02/09/25 08:41 Dose: 20 mg Fluoxetine HCl (Fluoxetine Hcl 20 Mg Capsule) 20 mg PO DAILY [facility] Last Admin: 02/09/25 08:40 Dose: 20 mg Hydroxyzine HCl (Hydroxyzine Hcl 25 Mg Tablet) 25 mg PO Q6H PRN PRN Reason: mild anxiety Last Admin: 02/05/25 16:23 Dose: 25 mg Magnesium Hydroxide (Milk Of Magnesia 30 Ml Oral.Susp) 30 ml PO DAILY PRN PRN Reason: Constipation Last Admin: 02/05/25 15:45 Dose: 30 ml Methadone HCl (Methadone Hcl 20 Mg/2 Ml Oral.Conc) 45 mg PO DAILY [facility] Last Admin: 02/09/25 08:40 Dose: 45 mg Nicotine (Nicotine 21 Mg Patch.Td24) 21 mg TRANSDERMA DAILY PRN PRN Reason: smoking cessation Last Admin: 02/08/25 09:56 Dose: 21 mg Nicotine Polacrilex (Nicotine Polacrilex 2 Mg Gum) 4 mg BUCCAL Q2H PRN PRN Reason: Nicotine Cravings Last Admin: 02/05/25 15:55 Dose: 4 mg Olanzapine (Olanzapine 5 Mg Tablet) 5 mg PO TID PRN PRN Reason: agitation Last Admin: 02/06/25 17:53 Dose: 5 mg Quetiapine Fumarate (Quetiapine Fumarate 100 Mg Tablet) 100 mg PO BEDTIME [facility] Last Admin: 02/08/25 20:37 Dose: 100 mg Trazodone HCl (Trazodone Hcl 100 Mg Tablet) 100 mg PO BEDTIME PRN PRN Reason: Insomnia Last Admin: 02/08/25 20:37 Dose: 100 mg Allergies Allergies Allergy/AdvReac Type Severity Reaction Status Date / Time seafood Allergy Intermediate Rash Verified 02/04/25 16:57 Assessment & Plan Assessment & Plan (1) MDD (major depressive disorder), recurrent episode: Status: Acute Code(s): F33.9 - Major depressive disorder, recurrent, unspecified (2) PTSD (post-traumatic stress disorder): Status: Acute Code(s): F43.10 - Post-traumatic stress disorder, unspecified (3) Opioid use disorder in remission: Status: Acute Code(s): F11.91 - Opioid use, unspecified, in remission (4) Cocaine use disorder in remission: Status: Acute Code(s): F14.91 - Cocaine use, unspecified, in remission Plan Patient is a 49-year-old female with history of MDD, PTSD, opiate disorder and cocaine use disorder who self presented to [facility] ER due to suicidal ideation with a plan to overdose secondary to increased depression. Plan: 15 minute safety checks Obtain collateral Reviewed previous home medications Start: Fluoxetine 20 mg PO daily Seroquel 100 mg PO bedtime Trazodone 100 mg PO bedtime PRN Encourage groups Referral to nursing home Discharge planning 02/07: Continue current regimen and plans. 02/08: Continue current regimen and plans. 02/09: Patient reports feeling better today; she reports improved sleep and mood over the weekend. denies SI/HI/VH/AH. Pt focused on obtaining nursing home bed prior to discharge; social and human services assistant aware. continue current tx plan. Patient educated on: diagnosis and medication risk/benefits Reason for continued inpatient stay Substantial Risk for: med/psych decompensation Time Spent With Patient Time: Total time managing care of this patient today _20___ minutes.
[2025-02-09 21:17] VITALS: BP 125/83; PULSE 983; TEMP 36.7; O2SAT 9
[2025-02-09] MEDS: Prazosin HCL 1 MG CAPSULE PO (21:19)
[2025-02-09] MEDS: QUEtiapine Fumarate 100 MG TABLET PO (21:19)
[2025-02-09] MEDS: traZODone HCL 100 MG TABLET PO (21:19)
[2025-02-10 08:00] VITALS: BP 100/59; PULSE 66; RESP 16; TEMP 36.8; O2SAT 93
[2025-02-10] MEDS: methADONE HCl 20 MG/2 ML ORAL.CONC 45 MG PO (08:26)
[2025-02-10] MEDS: FLUoxetine HCl 20 MG CAPSULE PO (08:28)
[2025-02-10] MEDS: Apixaban 5 MG TABLET PO ×2 (08:28→21:15)
[2025-02-10] MEDS: Famotidine 20 MG TABLET PO (08:28)
[2025-02-10] MEDS: Nicotine 21 MG PATCH.TD24 TRANSDERMA (11:14)
--- NOTE | 2025-02-10 12:10 | P.PNPSI_ITS ---
Subjective Subjective Date of Service: 02/10/25 Reason For Visit: SI Subjective Notes: Conditional Voluntary Interim History: Active on unit. attending groups. showered. Patient reports feeling sad today but is not sure what is causing her to feel this way. Continues focused on obtaining senior care bed. denies SI/HI/VH/AH. continue current tx plan. Medication Compliance: Yes Side effects from medications: No Attending Groups: Yes Mental Status Exam Mental Status Exam Patient Appearance: Well Grooomed Patient Orientation: Person, Place, Time and Situation Level of Consciousness: Awake and Alert Patient Behavior: Appropriate, Cooperative and Good Eye Contact Mood Description: Depressed Affect Description: Constricted Ability to Follow Directions: Good Speech Pattern: Clear and Appropriate Memory Description: Intact Hallucinations: None Delusions: Not Present Thought Process: Intact and Goal Oriented Thought Content: positive for Intact Diagnostics Vital Signs (24Hr): Vital Signs - 24 hr 02/09/25 21:17 02/10/25 08:00 Temperature 98.1 F 98.2 F Pulse Rate 983 H 66 Respiratory Rate 16 Blood Pressure 125/83 100/59 L Pulse Oximetry 9 L 93 Oxygen Delivery Method Room Air Room Air BMI result Body Mass Index 29.5 Labs 02/04/25 18:53 02/06/25 08:20 Medications Medications Current Medications Acetaminophen (Acetaminophen 325 Mg Tablet) 650 mg PO Q6H PRN PRN Reason: Headache/Pain, Scale 1-10 Last Admin: 02/07/25 16:16 Dose: 650 mg Al Hydroxide/Mg Hydroxide (Magnesium Hydrox/Alum Hydrox 30 Ml Oral.Susp) 30 ml PO Q6H PRN PRN Reason: Heartburn/Nausea Last Admin: 02/05/25 15:45 Dose: 30 ml Apixaban (Apixaban 5 Mg Tablet) 5 mg PO BID [facility] Last Admin: 02/10/25 08:28 Dose: 5 mg Famotidine (Famotidine 20 Mg Tablet) 20 mg PO DAILY [facility] Last Admin: 02/10/25 08:28 Dose: 20 mg Fluoxetine HCl (Fluoxetine Hcl 20 Mg Capsule) 20 mg PO DAILY [facility] Last Admin: 02/10/25 08:28 Dose: 20 mg Hydroxyzine HCl (Hydroxyzine Hcl 25 Mg Tablet) 25 mg PO Q6H PRN PRN Reason: mild anxiety Last Admin: 02/05/25 16:23 Dose: 25 mg Magnesium Hydroxide (Milk Of Magnesia 30 Ml Oral.Susp) 30 ml PO DAILY PRN PRN Reason: Constipation Last Admin: 02/05/25 15:45 Dose: 30 ml Methadone HCl (Methadone Hcl 20 Mg/2 Ml Oral.Conc) 45 mg PO DAILY [facility] Last Admin: 02/10/25 08:26 Dose: 45 mg Nicotine (Nicotine 21 Mg Patch.Td24) 21 mg TRANSDERMA DAILY PRN PRN Reason: smoking cessation Last Admin: 02/10/25 11:14 Dose: 21 mg Nicotine Polacrilex (Nicotine Polacrilex 2 Mg Gum) 4 mg BUCCAL Q2H PRN PRN Reason: Nicotine Cravings Last Admin: 02/05/25 15:55 Dose: 4 mg Olanzapine (Olanzapine 5 Mg Tablet) 5 mg PO TID PRN PRN Reason: agitation Last Admin: 02/06/25 17:53 Dose: 5 mg Prazosin HCl (Prazosin Hcl 1 Mg Capsule) 1 mg PO BEDTIME [facility]; Protocol Last Admin: 02/09/25 21:19 Dose: 1 mg Quetiapine Fumarate (Quetiapine Fumarate 100 Mg Tablet) 100 mg PO BEDTIME [facility] Last Admin: 02/09/25 21:19 Dose: 100 mg Trazodone HCl (Trazodone Hcl 100 Mg Tablet) 100 mg PO BEDTIME PRN PRN Reason: Insomnia Last Admin: 02/09/25 21:19 Dose: 100 mg Allergies Allergies Allergy/AdvReac Type Severity Reaction Status Date / Time seafood Allergy Intermediate Rash Verified 02/04/25 16:57 Assessment & Plan Assessment & Plan (1) MDD (major depressive disorder), recurrent episode: Status: Acute Code(s): F33.9 - Major depressive disorder, recurrent, unspecified (2) PTSD (post-traumatic stress disorder): Status: Acute Code(s): F43.10 - Post-traumatic stress disorder, unspecified (3) Opioid use disorder in remission: Status: Acute Code(s): F11.91 - Opioid use, unspecified, in remission (4) Cocaine use disorder in remission: Status: Acute Code(s): F14.91 - Cocaine use, unspecified, in remission Plan Patient is a 49-year-old female with history of MDD, PTSD, opiate disorder and cocaine use disorder who self presented to [facility] ER due to suicidal ideation with a plan to overdose secondary to increased depression. Plan: 15 minute safety checks Obtain collateral Reviewed previous home medications Start: Fluoxetine 20 mg PO daily Seroquel 100 mg PO bedtime Trazodone 100 mg PO bedtime PRN Encourage groups Referral to senior care Discharge planning 02/07: Continue current regimen and plans. 02/08: Continue current regimen and plans. 02/09: Patient reports feeling better today; she reports improved sleep and mood over the weekend. denies SI/HI/VH/AH. Pt focused on obtaining senior care bed prior to discharge; director social service aware. continue current tx plan. 02/10: Active on unit. attending groups. showered. Patient reports feeling sad today but is not sure what is causing her to feel this way. Continues focused on obtaining senior care bed. denies SI/HI/VH/AH. continue current tx plan. Patient educated on: diagnosis and medication risk/benefits Reason for continued inpatient stay Substantial Risk for: med/psych decompensation Time Spent With Patient Time: Total time managing care of this patient today _15___ minutes.
[2025-02-10 19:50] VITALS: BP 105/69; PULSE 84; RESP 16; TEMP 36.8; O2SAT 95
[2025-02-10] MEDS: QUEtiapine Fumarate 100 MG TABLET PO (21:15)
[2025-02-10] MEDS: traZODone HCL 100 MG TABLET PO (21:15)
[2025-02-10] MEDS: Prazosin HCL 1 MG CAPSULE PO (21:15)
[2025-02-11] MEDS: Famotidine 20 MG TABLET PO (08:36)
[2025-02-11] MEDS: Apixaban 5 MG TABLET PO (08:36)
[2025-02-11] MEDS: FLUoxetine HCl 20 MG CAPSULE PO (08:36)
[2025-02-11 08:38] VITALS: BP 110/64; PULSE 62; RESP 16; TEMP 36.9; O2SAT 95
[2025-02-11] MEDS: methADONE HCl 20 MG/2 ML ORAL.CONC 45 MG PO (09:01)
--- NOTE | 2025-02-11 09:22 | PM.PSYDC ---
DS: Providers Provider Date of Service: 02/11/25 Date of admission: 02/05/25 14:06 Date of discharge: 02/11/25 Primary care physician: Jesika Silver MD Admitting clinician: Andreina Su Attending physician on admission: Leonard Pat Attending physician on discharge: Jeremiah Black Discharging clinician: Blayne Hodge DS: Diagnosis Discharge Diagnosis (1) MDD (major depressive disorder), recurrent episode: Status: Acute (2) PTSD (post-traumatic stress disorder): Status: Acute (3) Opioid use disorder in remission: Status: Acute (4) Cocaine use disorder in remission: Status: Acute DS: Medications Discharge Medications Home Medications: Home Medications ?Medication ?Instructions ?Recorded ?Confirmed methadone 10 mg/mL oral 45 mg PO DAILY 11/02/23 02/04/25 concentrate (Methadone Intensol) Previous Rx's ?Medication ?Instructions ?Recorded apixaban 5 mg (74 tabs) tablets in See Rx Instructions .Route 12/29/24 a dose pack ([employer] DVT-PE Treat .COMPLEX #74 ea 30D Start) Mental Status Exam Mental Status Exam Narrative: Appearance: Casually dressed Behavior: Calm and cooperative throughout the interview. Eye contact is appropriate, and there are no signs of psychomotor agitation or retardation Speech: Normal volume and prosody Thought process logical and goal-directed Thought content: Future oriented no self-harming thoughts Mood: Euthymic Affect: Full, mood-congruent SI:denies HI:denies VH/AH:none Delusions: None Insight/judgment: Good insight and judgment Memory/cog: Alert, oriented x 4. grossly intact to conversational testing Data Data Completed and Pending Completed studies during hospitalization [Text1]: 02/04/25 02/04/25 02/04/25 17:15 17:34 18:53 WBC 5.4 RBC 4.30 Hgb 12.5 Hct 37.9 MCV 88.1 MCH 29.1 MCHC 33.0 RDW 13.5 Plt Count 197 MPV 10.5 Immature Gran % (Auto) 0.4 Neut % (Auto) 63.9 Lymph % (Auto) 23.6 [place] % (Auto) 9.3 Eos % (Auto) 2.4 Baso % (Auto) 0.4 Lymph # (Auto) 1.3 [place] # (Auto) 0.5 Eos # (Auto) 0.1 Baso # (Auto) 0.0 Abs Immat Gran (auto) 0.02 Absolute Neuts (auto) 3.5 Absolute Nucleated RBC 0.000 Nucleated RBC % (auto) 0.0 Sodium 142 Potassium 4.3 Chloride 107 Carbon Dioxide 27 Anion Gap 12 BUN 16 Creatinine 0.86 Estim Creat Clear Calc 64.0 Estimated GFR > 60 Random Glucose 86 Estimat Average Glucose Hemoglobin A1c % Calcium 9.4 Total Bilirubin AST ALT Alkaline Phosphatase Total Protein Albumin Triglycerides Cholesterol LDL Cholesterol, Calc HDL Cholesterol TSH Beta HCG, Quant 8 Urine Color Dark Yellow Urine Appearance Clear Urine pH 5.5 Ur Specific [place] >= 1.030 H Urine Protein Trace Urine Glucose (UA) Negative Urine Ketones Trace Urine Blood Negative Urine Nitrite Negative Ur Leukocyte Esterase Negative Salicylates < 5.0 L Urine Opiates Screen Not Detected Ur Buprenorphine Scrn Not Detected Ur Oxycodone Screen Not Detected Urine Methadone Screen Positive H Urine Fentanyl Screen Not Detected Ur Barbiturates Screen Not Detected Ur Phencyclidine Scrn Not Detected Ur Amphetamines Screen Not Detected U Benzodiazepines Scrn Not Detected Urine Cocaine Screen Not Detected U Marijuana (THC) Screen Not Detected Ethyl Alcohol < 10 Influenza Type A (PCR) NEGATIVE Influenza Type B (PCR) NEGATIVE RSV RNA Qual (PCR) NEGATIVE SARS-CoV-2 RNA (RT-PCR) NEGATIVE 02/06/25 08:20 WBC RBC Hgb Hct MCV MCH MCHC RDW Plt Count MPV Immature Gran % (Auto) Neut % (Auto) Lymph % (Auto) [place] % (Auto) Eos % (Auto) Baso % (Auto) Lymph # (Auto) [place] # (Auto) Eos # (Auto) Baso # (Auto) Abs Immat Gran (auto) Absolute Neuts (auto) Absolute Nucleated RBC Nucleated RBC % (auto) Sodium 144 Potassium 4.5 Chloride 106 Carbon Dioxide 32 H Anion Gap 11 L BUN 14 Creatinine 0.76 Estim Creat Clear Calc 72.4 Estimated GFR > 60 Random Glucose 94 Estimat Average Glucose 108 Hemoglobin A1c % 5.4 Calcium 9.2 Total Bilirubin 0.4 AST 33 H ALT 59 H Alkaline Phosphatase 78 Total Protein 7.0 Albumin 3.8 Triglycerides 115 Cholesterol 149 LDL Cholesterol, Calc 85 HDL Cholesterol 41 TSH 2.30 Beta HCG, Quant Urine Color Urine Appearance Urine pH Ur Specific [place] Urine Protein Urine Glucose (UA) Urine Ketones Urine Blood Urine Nitrite Ur Leukocyte Esterase Salicylates Urine Opiates Screen Ur Buprenorphine Scrn Ur Oxycodone Screen Urine Methadone Screen Urine Fentanyl Screen Ur Barbiturates Screen Ur Phencyclidine Scrn Ur Amphetamines Screen U Benzodiazepines Scrn Urine Cocaine Screen U Marijuana (THC) Screen Ethyl Alcohol Influenza Type A (PCR) Influenza Type B (PCR) RSV RNA Qual (PCR) SARS-CoV-2 RNA (RT-PCR) DS: Summary Hospital Course Hospital Course: Patient is a 49-year-old female with history of MDD, PTSD, opiate disorder and cocaine use disorder who self presented to [facility] due to suicidal ideation with a plan to overdose secondary to increased depression. 02/07: Continue current regimen and plans. 02/08: Continue current regimen and plans. 02/09: Patient reports feeling better today; she reports improved sleep and mood over the weekend. denies SI/HI/VH/AH. Pt focused on obtaining assisted bed prior to discharge; social insurance administrator aware. continue current tx plan. 02/10: Active on unit. attending groups. showered. Patient reports feeling sad today but is not sure what is causing her to feel this way. Continues focused on obtaining assisted bed. denies SI/HI/VH/AH. continue current tx plan. 02/11: Patient notes that she is in a good mood today. She has been med compliant and attending groups. She currently denies anxiety or depression. She denies medical issues at this time. She denies SI/HI/AH/VH. She states that she is ready to be discharged today to a assisted. Time spent discussing smoking cessation with patient: 3 to 10 minutes Status at Discharge Functional status at discharge: independent ambulation Time Spent with Patient Time attestation: Total time managing care of this patient today ____ minutes. Discharge Plan Discharge Anticipated Discharge Date/Time: 02/11/25 12:00 Patient Disposition: [facility] Discharge Diagnosis: MDD Referrals: Rubia Reynolds ([facility]) [Other] - 02/11/25 5:30 pm (Patient accepted to [facility] for assisted placement. $65.00 Money order due today on arrival to assisted when meeting with case management. Rent is due every following Sunday, money order for $65.00 [facility] has case management services to help with applying for SSI/Housing and accessing other community resources You will be required to leave assisted Sunday-Sunday between the hours of 8am-5pm) Dr. Mahajan: [facility] [Other] - 03/11/25 11:00 am (Follow-up appointment with psychiatric provider at [facility] ) Jesika Silver MD [Primary Care Provider] - (please follow up.) Discharge Medications: New nicotine 21 mg/24 hr Patch 24 Hour 21 mg transdermal DAILY PRN (Reason: smoking cessation) 30 Days Qty: 28 0RF nicotine (polacrilex) 2 mg Gum 4 mg buccal Q2H PRN (Reason: Nicotine Cravings) 30 Days Qty: 120 0RF Eliquis 5 mg Tablet 5 mg PO BID 30 Days Qty: 60 0RF prazosin 1 mg Capsule 1 mg PO BEDTIME 30 Days Qty: 30 0RF Protocol: Hold for SBP< HOLD for SBP < : 90 fluoxetine 20 mg Capsule 20 mg PO DAILY 30 Days Qty: 30 0RF hydroxyzine HCl 25 mg Tablet 25 mg PO Q6H PRN (Reason: mild anxiety) Qty: 30 0RF olanzapine 5 mg Tablet 5 mg PO TID PRN (Reason: agitation) Qty: 30 0RF quetiapine 100 mg Tablet 100 mg PO BEDTIME 30 Days Qty: 30 0RF trazodone 100 mg Tablet 100 mg PO BEDTIME PRN (Reason: Insomnia) Qty: 30 0RF famotidine 20 mg Tablet 20 mg PO DAILY 30 Days Qty: 30 0RF naloxone [Narcan] 4 mg/actuation spray,non-aerosol 4 mg intranasal Q2M PRN (Reason: opioid overdose) Qty: 2 0RF Rx Instructions: spray 1 dose into ONE nostril; alternate nostrils w each dose until help arrives Continued methadone [Methadone Intensol] 10 mg/mL Concentrate 45 mg PO DAILY Patient Comments: Take away bottle through 02/10/25 Discontinued Eliquis DVT-PE Treat 30D Start 5 mg (74 tabs) tablets,dose pack See Rx Instructions .ROUTE .COMPLEX Qty: 74 0RF Rx Instructions: 10mg BID for 7 days then 5mg BID to complete starter pack Discharge Orders: Discharge Order (Routine); Ordered 02/11/25 Ordered By: Blayne Hodge Stand Alone Forms: Patient Portal Discharge page, Community Support Print Language: Emirati Care Plan Goals: Maintain mood and safe behaviors Take medications as prescribed Continue to pursue sobriety Practice coping skills Continue with outpatient providers and reach out to them as needed Health Concerns: Mood stability and behaviors Maintain sobriety Plan of Treatment: Follow up with your PCP, psychiatric provider and other outpatient providers regarding above concerns Take medications as prescribed Assessment: Risk assessment at time of discharge:? Patient was interviewed prior to discharge and found to be fully oriented and without any SI or HI. Patient has improved insight and judgment and wants to continue treatment. Patient is not in imminent risk of harm to self or others and has a safety plan that includes presenting to the closest ER or calling 911 if feeling unsafe.? Patient has been observed closely by nursing and unit staff throughout admission; patient has not engaged in any behaviors that suggest dangerousness to self or others and has demonstrated appropriate behaviors and impulse control Discharge Date/Time: 02/11/25 12:53
== END 2025-02-11 12:53 | disposition home or self-care (01) | DRG 751 ==
LOC: HO.ED 20:14 → HO.PM5 02-05 14:06
PROVIDERS: Physician Assistant Medical; Admitting Provider Psychiatry & Neurology Psychiatry; Emergency Provider Internal Medicine; PCP Internal Medicine; Visit Provider Psychiatry & Neurology Psychiatry
DX: F33.9 Major depressive disorder, recurrent, unspecified (principal); R45.851 Suicidal ideations; F11.20 Opioid dependence, uncomplicated; F43.10 Post-traumatic stress disorder, unspecified; F14.91 Cocaine use, unspecified, in remission; K59.00 Constipation, unspecified; F17.210 Nicotine dependence, cigarettes, uncomplicated; Z71.6 Tobacco abuse counseling; Z20.822 Contact with and (suspected) exposure to COVID-19; Z86.718 Personal history of other venous thrombosis and embolism; Z79.01 Long term (current) use of anticoagulants; Z79.899 Other long term (current) drug therapy
CPT/HCPCS: 0241U; 36415; 74018; 80048; 80053; 80061; 80179; 80307; 81003; 83036; 84443; 84702; 85025; 93005; 99285; S9485

== ENCOUNTER → 2025-02-04 16:59 | Outpatient (BNV) | payer MEDICAID, SELFPAY | PROVIDERS: Emergency Provider Internal Medicine; PCP Internal Medicine; Visit Provider Internal Medicine Cardiovascular Disease | DX: R94.31 Abnormal electrocardiogram [ECG] [EKG] (principal); Z13.6 Encounter for screening for cardiovascular disorders | CPT/HCPCS: 93010 ==

== ENCOUNTER → 2025-02-04 18:13 | Outpatient (BNV) | payer MEDICAID, SELFPAY | PROVIDERS: PCP Internal Medicine; Visit Provider Radiology Neuroradiology | DX: K56.41 Fecal impaction (principal) | CPT/HCPCS: 74018 ==

== ENCOUNTER → 2025-02-05 14:06 | Outpatient (BNV) | payer OTHER, SELFPAY | PROVIDERS: Admitting Provider Psychiatry & Neurology Psychiatry; Emergency Provider Internal Medicine; PCP Internal Medicine; Visit Provider Psychiatry & Neurology Psychiatry | DX: F33.2 Major depressive disorder, recurrent severe without psychotic features (principal); F43.11 Post-traumatic stress disorder, acute; F11.91 Opioid use, unspecified, in remission; F14.91 Cocaine use, unspecified, in remission | CPT/HCPCS: 99231; 99232; 99233 ==

== ENCOUNTER 2025-03-15 16:50 | Emergency (ER) | payer MEDICAID, SELFPAY ==
--- NOTE | ~2025-03-15 | US_ITS ---
CLINICAL HISTORY: pain and swelling, d cd own Eliquis Venous duplex ultrasound bilateral lower extremity Comparison: US - US VENOUS DUPLEX LE BI - 12/28/24 22:43 EDT Findings: The visualized deep veins are fully compressible with normal Doppler color flow and spectral tracings. No popliteal cyst. IMPRESSION: 1. Negative for bilateral lower extremity deep vein thrombosis. This document has been electronically signed by: Shawna Hitchcock MD on 03/15/2025 19:24:25
[2025-03-15 17:26] VITALS: BP 122/73; PULSE 72; RESP 16; TEMP 36.8; O2SAT 96; BMI 26.6
--- NOTE | 2025-03-15 17:26 | ED_ITS ---
HPI - General Adult General Chief complaint: Skin/Abscess/Foreign Body Stated complaint: black and red ramey on legs/feet Time Seen by Provider: 03/15/25 18:14 Source: patient Limitations: language barrier History of Present Illness ED Provider: Mylene Taylor PA-C HPI narrative: 49-year-old female with a history of thrombophlebitis who is supposed to be on Eliquis, depression, anxiety who presents with bilateral lower extremity discomfort. Patient states she has been having discomfort in both lower extremities in relation to the regions of phlebitis that she has. Patient discontinue the Eliquis over the past 5 days, she states she becomes ?itchy and develops a full body rash?. Denies chest pain, shortness of breath. Related Data Home Medications ?Medication ?Instructions ?Recorded ?Confirmed methadone 10 mg/mL oral 45 mg PO DAILY 11/02/2301/09 concentrate (Methadone Intensol) Previous Rx's ?Medication ?Instructions ?Recorded apixaban 5 mg tablet (Eliquis) 5 mg PO BID 30 days #60 tabs 02/11/25 famotidine 20 mg tablet 20 mg PO DAILY 30 days #30 t abs 02/11/25 fluoxetine 20 mg capsule 20 mg PO DAILY 30 days #30 c aps 02/11/25 hydroxyzine HCl 25 mg tablet 25 mg PO Q6H PRN mild anx iety #30 02/11/25 tabs naloxone 4 mg/actuation nasal 4 mg intranasal Q2M PRN opioid 02/11/25 spray (Narcan) overdose #2 ea nicotine (polacrilex) 2 mg gum 4 mg buccal Q2H PRN Contreras otine 02/11/25 Cravings 30 days #120 ea nicotine 21 mg/24 hr daily 21 mg transdermal DAILY PRN 02/11/25 transdermal patch smoking cessation 30 days #2 8 ea olanzapine 5 mg tablet 5 mg PO TID PRN agitation #3 0 tabs 02/11/25 prazosin 1 mg capsule 1 mg PO BEDTIME 30 days #30 caps 02/11/25 quetiapine 100 mg tablet 100 mg PO BEDTIME 30 days #3 0 tabs 02/11/25 trazodone 100 mg tablet 100 mg PO BEDTIME PRN Insomn ia #30 02/11/25 tabs Allergies Allergy/AdvReac Type Severity Reaction Status Date / Time seafood Allergy Intermediate Rash Verified 03/15/25 17:27 Review of Systems 2 Review of Systems: Yes all other systems are reviewed and are negative Constitutional: Constitutional: Denies fatigue and Denies fever(s) Cardiovascular: Cardiovascular: Denies chest pain, Reports leg ulcers, Denies leg edema and Denies dyspnea Respiratory: Respiratory: Denies dyspnea Integumentary/Breasts: Skin/Breast: Denies erythema and Denies rash Endocrine: Endocrine: Denies fatigue PMFSH Past Medical History Attestation statement: The following information was validated with the patient. Medical History Generalized anxiety disorder Major depression, single episode Surgical History History of shoulder surgery Social History Social History Household Members: Family Household Members Other:: Lives with sister & 14 others Housing: Apartment Do you presently have visiting nurse or other home services: No Alcohol intake: current Patient Tobacco Use Status: Current everyday Tobacco user Tobacco use type: Cigarette Cigarette Packs Per Day: 1 Cigarettes Per Day: 20.0 Smoked in Last 30 Days: No e-Cigarette/Vaping Use: Never Used Second Hand Smoke Exposure: Yes Use of substances other than those prescribed or required for medical reasons: Yes Substance Use Type: Crack/Cocaine Substance Use Type Other:: methadone Advance Directives: No Advance Directives Information Provided: Yes Do you have a plan to hurt others: No Plan Patient : No service: No Current occupational status: unemployed Current occupation: right hand dominant Sexual orientation: Straight/Heterosexual Physical Exam ED Vital Signs: Vital Signs - 24 hr 03/15/25 17:26 03/15/25 18:39 Temperature 98.3 F 98.3 F Pulse Rate 72 68 Respiratory Rate 16 14 Blood Pressure 122/73 97/62 Pulse Oximetry 96 97 Oxygen Delivery Method Room Air Room Air BMI result Body Mass Index 26.6 Const Other: Alert Orientation/consciousness: patient oriented x3 Resp Effort & Inspection: normal respiratory effort Cardio Other: Normal peripheral perfusion no pitting edema bilateral lower extremities Skin Other: Warm dry no rash Neuro General: patient oriented x3, gait normal, no focal motor deficits and CN's II- XI intact bilaterally Psych Other: Cooperative Course Course Course Narrative: This is a rapid medical exam performed by Nathalie Rios NP: Additional HPI, ROS, PE not included below will be deferred to primary provider. Patient is a 49-year-old Nigerien speaking female with history of thrombophlebitis, anxiety and depression presenting to the ED with complaint of bruising to her legs. Supposed to be prescribed Eliquis but discontinued this on her own 5 days ago because she noted blood in her stool. Did not discuss the discontinuation of her Eliquis with her provider. Plan: labs, U/S Medical Decision Making Medical Decision Making MDM Narrative: 49-year-old female with a history of thrombophlebitis who is supposed to be on Eliquis, depression, anxiety who presents with bilateral lower extremity discomfort. Patient states she has been having discomfort in both lower extremities in relation to the regions of phlebitis that she has. Patient discontinue the Eliquis over the past 5 days, she states she becomes ?itchy and develops a full body rash?. Denies chest pain, shortness of breath. Problem: Known thrombophlebitis History: Per patient I have considered the following differential diagnoses: DVT, cellulitis Plan: Bilateral Doppler studies were ordered from triage, there was no DVT. I have discussed with the patient that she needs to follow up with her primary care provider to change the anticoagulant to a different product. She will call tomorrow. I have independently reviewed the following tests: Labs: No leukocytosis, not anemic, no electrolyte abnormality noted Bilateral Doppler studies:MPRESSION: 1. Negative for bilateral lower extremity deep vein thrombosis. Lab Data 03/15/25 17:44 03/15/25 17:44 Labs: Lab Results 03/15/25 Range/Units 17:44 WBC 5.0 (4.8-10.8) X10*3/uL RBC 4.47 (4.20-5.50) X10*6/uL Hgb 13.6 (12.0-16.0) g/dl Hct 38.3 (37.0-47.0) % MCV 85.7 (80.0-98.0) fL MCH 30.4 (27.0-33.0) pg MCHC 35.5 H (31.0-35.0) g/dl RDW 13.6 (11.0-16.0) % Plt Count 215 (160-400) X10*3/uL MPV 10.6 (9.4-12.3) fL Immature Gran % (Auto) 0.6 H (0.0-0.4) % Neut % (Auto) 54.7 (45-73) % Lymph % (Auto) 33.4 (20-40) % [place] % (Auto) 9.7 (2-11) % Eos % (Auto) 1.2 (0-4) % Baso % (Auto) 0.4 (0-2) % Lymph # (Auto) 1.7 (1.2-4.9) X10*3/uL [place] # (Auto) 0.5 (0.1-1.2) X10*3/uL Eos # (Auto) 0.1 (0.0-0.4) X10*3/uL Baso # (Auto) 0.0 (0.0-0.2) X10*3/uL Abs Immat Gran (auto) 0.03 (0.00-0.03) X10*3/uL Absolute Neuts (auto) 2.7 (2.0-8.3) x10*3/uL Absolute Nucleated RBC 0.000 (0.0-0.012) X10*3/uL Nucleated RBC % (auto) 0.0 (0.0-0.2) /100WBC PT 12.2 (10.9-12.4) SEC INR 1.1 (0.9-1.1) Sodium 144 (135-145) mmol/L Potassium 3.9 (3.3-5.1) mmol/L Chloride 110 H (96-108) mmol/L Carbon Dioxide 25 (22-29) mmol/L Anion Gap 13 (12-20) BUN 16 (9-16) mg/dL Creatinine 0.67 (0.5-1.4) mg/dL Estim Creat Clear Calc 95.5 Estimated GFR > 60 Random Glucose 108 (60-115) mg/dL Calcium 9.2 (8.4-10.2) mg/dL Total Bilirubin 0.5 (0.0-1.0) mg/dL AST 38 H (5-31) U/L ALT 32 H (0-31) U/L Alkaline Phosphatase 67 (39-117) U/L Total Protein 7.7 (6.5-8.0) g/dL Albumin 4.2 (3.5-5.0) g/dL Discharge Plan Discharge Clinical Impression: Thrombophlebitis Patient Disposition: Home, Self-Care Additional Instructions: All of your labs were normal, the ultrasound of both of your legs was normal as well , you do not have a deep clot in the leg. You need to be on a blood thinner, you need to talk to your primary care provider tomorrow about transitioning your medication to a different anticoagulant. In the meantime, you can use compression stockings, to help with blood flow, they can be purchased anywhere, such as [employer] or [employer]. Prescriptions: No Action methadone [Methadone Intensol] 10 mg/mL Concentrate 45 mg PO DAILY Patient Comments: Take away bottle through 02/10/25 nicotine 21 mg/24 hr Patch 24 Hour 21 mg transdermal DAILY PRN (Reason: smoking cessation) 30 Days Qty: 28 0RF nicotine (polacrilex) 2 mg Gum 4 mg buccal Q2H PRN (Reason: Nicotine Cravings) 30 Days Qty: 120 0RF Eliquis 5 mg Tablet 5 mg PO BID 30 Days Qty: 60 0RF prazosin 1 mg Capsule 1 mg PO BEDTIME 30 Days Qty: 30 0RF Protocol: Hold for SBP< HOLD for SBP < : 90 fluoxetine 20 mg Capsule 20 mg PO DAILY 30 Days Qty: 30 0RF hydroxyzine HCl 25 mg Tablet 25 mg PO Q6H PRN (Reason: mild anxiety) Qty: 30 0RF olanzapine 5 mg Tablet 5 mg PO TID PRN (Reason: agitation) Qty: 30 0RF quetiapine 100 mg Tablet 100 mg PO BEDTIME 30 Days Qty: 30 0RF trazodone 100 mg Tablet 100 mg PO BEDTIME PRN (Reason: Insomnia) Qty: 30 0RF famotidine 20 mg Tablet 20 mg PO DAILY 30 Days Qty: 30 0RF naloxone [Narcan] 4 mg/actuation spray,non-aerosol 4 mg intranasal Q2M PRN (Reason: opioid overdose) Qty: 2 0RF Rx Instructions: spray 1 dose into ONE nostril; alternate nostrils w each dose until help arrives Print Language: Nigerien
[2025-03-15 17:48] LABS: MANUAL DIFF FLAG NO
[2025-03-15 17:56] LABS: Hematocrit 38.3 % (37.0-47.0); Hemoglobin 13.6 g/dl (12.0-16.0); Imm Gran Abs Auto 0.03 X10*3/uL (0.00-0.03); Imm Gran Pct Auto 0.6 % (0.0-0.4); Lymphocytes Absolute Auto 1.7 X10*3/uL (1.2-4.9); Mean Corpuscular HGB Conc 35.5 g/dl (31.0-35.0); Mean Corpuscular Hemoglobin 30.4 pg (27.0-33.0); Mean Corpuscular Volume 85.7 fL (80.0-98.0); NRBC Abs Auto 0.000 X10*3/uL (0.0-0.012); NRBC Pct Auto 0.0 /100WBC (0.0-0.2); Platelet Count 215 X10*3/uL (160-400); Red Blood Count 4.47 X10*6/uL (4.20-5.50); White Blood Count 5.0 X10*3/uL (4.8-10.8)
[2025-03-15 17:59] LABS: INTERNATIONAL NORM RATIO 1.1 (0.9-1.1); Prothrombin Time 12.2 SEC (10.9-12.4)
[2025-03-15 18:02] LABS: Alanine Aminotransferase 32 U/L (0-31); Albumin Level 4.2 g/dL (3.5-5.0); Alkaline Phosphatase 67 U/L (39-117); Anion Gap 13 (12-20); Aspartate Amino Transferase 38 U/L (5-31); Blood Urea Nitrogen 16 mg/dL (9-16); Calcium 9.2 mg/dL (8.4-10.2); Carbon Dioxide 25 mmol/L (22-29); Chloride 110 mmol/L (96-108); Creatinine Clr Calc Pharmacy 95.5; Estimated Glomerular Filt Rate > 60; Potassium 3.9 mmol/L (3.3-5.1); Sodium 144 mmol/L (135-145); Total Protein 7.7 g/dL (6.5-8.0)
[2025-03-15 18:39] VITALS: BP 97/62; PULSE 68; RESP 14; TEMP 36.8; O2SAT 97
--- NOTE | 2025-03-15 18:41 | PC.NURSE ---
Swedish speaking only, lamination inspector services utilized. Patient presents to ED c/o Alexey leg red spots and bruising with associated pain in left calf rated 5/10. Legs +3 pitting edema, no warmth, +CMS +ROM. Patient developed the spots 1 week ago along with having blood in stool, patient reports the stool color to be brown. Patient stopped taking eliquis 1 week ago and began to feel numbness in left ankle 3 days ago. Denies fever/chills, SOB, and dizziness. US performed on legs, results pending.
[2025-03-15 20:17] VITALS: BP 116/92; PULSE 70; RESP 18; TEMP 36.3; O2SAT 95
[2025-03-15 20:22] VITALS: BP 116/92; PULSE 70; RESP 18; TEMP 36.3; O2SAT 95
== END 2025-03-15 20:22 | disposition home or self-care (01) ==
PROVIDERS: Registered Nurse Emergency; Emergency Provider Emergency Medicine; PCP Internal Medicine
DX: I80.3 Phlebitis and thrombophlebitis of lower extremities, unspecified (principal); M79.605 Pain in left leg; M79.604 Pain in right leg; R60.0 Localized edema; Z79.899 Other long term (current) drug therapy
CPT/HCPCS: 36415; 80053; 85025; 85610; 93970; 99284

== ENCOUNTER → 2025-03-15 17:31 | Outpatient (BNV) | payer MEDICAID, SELFPAY | PROVIDERS: Emergency Provider Emergency Medicine; PCP Internal Medicine; Visit Provider Student in an Organized Health Care Education/Training Program | DX: R22.43 Localized swelling, mass and lump, lower limb, bilateral (principal) | CPT/HCPCS: 93970 ==

== ENCOUNTER 2025-03-31 19:33 | Emergency (ER) | payer MEDICAID, SELFPAY ==
--- NOTE | ~2025-03-31 | US_ITS ---
CLINICAL HISTORY: pain and swelling Venous duplex ultrasound left lower extremity Comparison: US - US VENOUS DUPLEX LE BI - 03/15/25 18:17 EDT Findings: The visualized deep veins are fully compressible with normal Doppler color flow and spectral tracings. No popliteal cyst. IMPRESSION: 1. Negative for left lower extremity deep vein thrombosis. This document has been electronically signed by: Leatha Wetzel MD on 03/31/2025 22:21:09
--- NOTE | ~2025-03-31 | XR_ITS ---
CLINICAL HISTORY: swelling and warmth 2 view left tibia-fibula Comparison: None provided Findings No fractures or dislocations. No joint effusion. There is soft tissue edema. No significant arthritic change. No radiopaque foreign body. IMPRESSION: No acute osseous finding. This document has been electronically signed by: Leatha Wetzel MD on 03/31/2025 20:53:40
[2025-03-31 19:58] VITALS: BP 115/67; PULSE 86; RESP 16; TEMP 36.7; O2SAT 96; BMI 31.4
--- NOTE | 2025-03-31 20:19 | ED_ITS ---
HPI - Extremity Problem General Chief complaint: Extremity Problem Stated complaint: left leg swollen Time Seen by Provider: 03/31/25 22:23 Source: patient Mode of arrival: ambulatory Limitations: no limitations History of Present Illness ED Provider: Dr. Shayla Cavazos HPI Narrative: Patient comes to the emergency room complaining of 2 days of left lower extremity pain, swelling and redness. Patient denies fever or chills. Patient has history of DVTs. Patient is supposed to be on Eliquis but states that she is noncompliant with the medication because it makes her feel very itchy every time that she takes a dose of Eliquis she denies palpitations, denies shortness of breath, denies calf pain Related Data Home Medications ?Medication ?Instructions ?Recorded ?Confirmed methadone 10 mg/mL oral 45 mg PO DAILY 11/02/2301/09 concentrate (Methadone Intensol) Previous Rx's ?Medication ?Instructions ?Recorded apixaban 5 mg tablet (Eliquis) 5 mg PO BID 30 days #60 tabs 02/11/25 famotidine 20 mg tablet 20 mg PO DAILY 30 days #30 t abs 02/11/25 fluoxetine 20 mg capsule 20 mg PO DAILY 30 days #30 c aps 02/11/25 hydroxyzine HCl 25 mg tablet 25 mg PO Q6H PRN mild anx iety #30 02/11/25 tabs naloxone 4 mg/actuation nasal 4 mg intranasal Q2M PRN opioid 02/11/25 spray (Narcan) overdose #2 ea nicotine (polacrilex) 2 mg gum 4 mg buccal Q2H PRN Contreras otine 02/11/25 Cravings 30 days #120 ea nicotine 21 mg/24 hr daily 21 mg transdermal DAILY PRN 02/11/25 transdermal patch smoking cessation 30 days #2 8 ea olanzapine 5 mg tablet 5 mg PO TID PRN agitation #3 0 tabs 02/11/25 prazosin 1 mg capsule 1 mg PO BEDTIME 30 days #30 caps 02/11/25 quetiapine 100 mg tablet 100 mg PO BEDTIME 30 days #3 0 tabs 02/11/25 trazodone 100 mg tablet 100 mg PO BEDTIME PRN Insomn ia #30 02/11/25 tabs cephalexin 500 mg capsule 500 mg PO BID #14 caps 03/31 doxycycline hyclate 100 mg capsule 100 mg PO BID #14 c aps 03/31/25 rivaroxaban 15 mg (42)-20 mg (9) See Rx Instructions P O .COMPLEX 03/31/25 tablets in a starter pack (Xarelto #51 ea DVT-PE Treatment 30-Day Starter) Allergies Allergy/AdvReac Type Severity Reaction Status Date / Time seafood Allergy Intermediate Rash Verified 03/31/25 20:03 Review of Systems 2 Review of Systems: Constitutional : No Weight loss, No Fever, No Chills, No Night Sweats, No Fatigue, No Malaise ENT/Mouth : No Hearing loss, No Ear Pain, No Nasal Congestion, No Sinus Pain, No Hoarseness, No sore throat, No Rhinorrhea, No Swallowing Difficulty Eyes: No Eye Pain, No Swelling, No Redness, No Foreign Body, No Discharge, No Vision Changes Cardiovascular : No Chest Pain, No SOB, No Dyspnea on Exertion, No Orthopnea, No Edema, No Palpitations Respiratory : No Cough, No Sputum, No Wheezing, No Smoke Exposure, No Dyspnea Gastrointestinal : No Nausea, No Vomiting, No Diarrhea, No Constipation, No abdominal Pain, No Hematochezia, No Melena Genitourinary : no irregular bleeding, No Dysuria, No Urinary Frequency, No Hematuria, No Urinary Incontinence, No Urgency, No Flank Pain, No Urinary Flow Changes, No Hesitancy Musculoskeletal : Complaining of left lower extremity pain and swelling and erythema Skin : Complaining of left lower extremity erythema Neuro : No Weakness, No Numbness, No Paresthesias, No Loss of Consciousness, No Dizziness, No Headache Psych : No Anxiety/Panic, No Depression, No SI/HI/AH/VH, No Social Issues, Heme/Lymph: No Bruising, No Bleeding,No Lymphadenopathy Endocrine : No Polyuria, No Polydipsia, No Temperature Intolerance [facility] Past Medical History Medical History Cocaine use disorder in remission Opioid use disorder in remission PTSD (post-traumatic stress disorder) Constipation Generalized anxiety disorder Major depression, single episode Surgical History History of shoulder surgery Social History Social History Household Members: Family Household Members Other:: Lives with sister & 14 others Housing: Apartment Do you presently have visiting nurse or other home services: No Alcohol intake: current Patient Tobacco Use Status: Current everyday Tobacco user Tobacco use type: Cigarette Cigarette Packs Per Day: 1 Cigarettes Per Day: 20.0 e-Cigarette/Vaping Use: Never Used Second Hand Smoke Exposure: Yes Substance Use Type: Crack/Cocaine Advance Directives: No Advance Directives Information Provided: No Patient : No service: No Current occupational status: unemployed Current occupation: right hand dominant Sexual orientation: Straight/Heterosexual Physical Exam 2 Exam: Exam: Appearance: Alert. Oriented X3. No acute distress. Eyes: Pupils equal, round and reactive to light. ENT: Pharynx normal. Neck: Normal inspection. Neck supple. No lymph nodes noted. No crepitus CVS: Normal heart rate and rhythm. Pulses normal. Normal S1 and S2 Respiratory: No respiratory distress. Breath sounds normal. No Wheezing. No rales Abdomen: Soft and nontender. No rigidity. No distention. Skin: Skin warm and dry. See extremities below Extremities: Patient's left lower extremity is a bit swollen, nonpitting edema, erythematous from half of the foot to the knee, painful to touch Neuro: Oriented X 3. No motor deficit. No sensory deficit. Moving all extremities. No slurred speech. CN 2 through 12 grossly intact Psych: calm, cooperative, normal affect Vital Signs: Vital Signs: Last Vital Signs Temp 97.8 F 03/31/25 23:04 Pulse 70 03/31/25 23:04 Resp 16 03/31/25 23:04 BP 101/64 03/31/25 23:04 Pulse Ox 97 03/31/25 23:04 O2 Del Method Room Air 03/31/25 19:58 BMI result Body Mass Index 31.4 Course Course Course Narrative: RmE: 49-year-old female presents to ED for left leg swelling and pain to touch and red for the past 2 days. Patient denies any trauma. Patient states history of phlebitis on blood thinner. Left lower extremity positive for swelling redness and tenderness. Ultrasound labs x-ray ordered Medications Administered Discontinued Medications Generic Name Dose Route Start Last Admin Trade Name Freq PRN Reason Stop Dose Admin Cephalexin HCl 500 mg 03/31/25 22:31 03/31/25 23:03 Cephalexin 500 Mg Capsule PO 03/31/25 22:32 500 mg ONCE ONE Administration Doxycycline Monohydrate 100 mg 03/31/25 22:31 03/31/25 23:04 Doxycycline Monohydrate 100 Mg Capsule PO 03/31/25 22:32 100 mg ONCE ONE Administration Medical Decision Making Medical Decision Making [facility] Narrative: The ultrasound is negative for DVT. Patient's vitals stable, no fever or hypotension I discussed the physical exam with the patient, she likely has cellulitis Patient states that she is noncompliant with her Eliquis because it makes her feel itchy every time that she takes it. Patient does not have good follow-up with the primary care physician. States it takes a long time to get in. I discussed with the patient that given her recent history of DVT, she should be on a blood thinner. Patient agreeable to have her medication changed to Xarelto and states that she will call her PCP this week for follow-up Differential Diagnosis Differential Diagnoses: The differential diagnosis associated with the presentation includes (DVT, allergic reaction, cellulitis) Admission/Observation Consideration of admission/observation: Escalation of care including admission/observation considered (Given patient's past medical history, medication noncompliance, observation was considered) Lab Data [facility] Lab Attestation statement: I reviewed the patient's lab results. 03/31/25 20:40 03/31/25 20:40 Labs: Lab Results 03/31/25 Range/Units 20:40 WBC 4.3 L (4.8-10.8) X10*3/uL RBC 4.38 (4.20-5.50) X10*6/uL Hgb 12.7 (12.0-16.0) g/dl Hct 37.8 (37.0-47.0) % MCV 86.3 (80.0-98.0) fL MCH 29.0 (27.0-33.0) pg MCHC 33.6 (31.0-35.0) g/dl RDW 13.2 (11.0-16.0) % Plt Count 193 (160-400) X10*3/uL MPV 10.4 (9.4-12.3) fL Immature Gran % (Auto) 0.2 (0.0-0.4) % Neut % (Auto) 62.3 (45-73) % Lymph % (Auto) 27.4 (20-40) % [place] % (Auto) 8.7 (2-11) % Eos % (Auto) 0.9 (0-4) % Baso % (Auto) 0.5 (0-2) % Lymph # (Auto) 1.2 (1.2-4.9) X10*3/uL [place] # (Auto) 0.4 (0.1-1.2) X10*3/uL Eos # (Auto) 0.0 (0.0-0.4) X10*3/uL Baso # (Auto) 0.0 (0.0-0.2) X10*3/uL Abs Immat Gran (auto) 0.01 (0.00-0.03) X10*3/uL Absolute Neuts (auto) 2.7 (2.0-8.3) x10*3/uL Absolute Nucleated RBC 0.000 (0.0-0.012) X10*3/uL Nucleated RBC % (auto) 0.0 (0.0-0.2) /100WBC ESR 16 (0-20) MM/HR PT 11.6 (10.9-12.4) SEC INR 1.0 (0.9-1.1) APTT 22.1 L (26.0-36.8) SEC Sodium 143 (135-145) mmol/L Potassium 4.3 (3.3-5.1) mmol/L Chloride 110 H (96-108) mmol/L Carbon Dioxide 25 (22-29) mmol/L Anion Gap 12 (12-20) BUN 19 H (9-16) mg/dL Creatinine 0.79 (0.5-1.4) mg/dL Estim Creat Clear Calc 71.9 Estimated GFR > 60 Random Glucose 101 (60-115) mg/dL Calcium 8.9 (8.4-10.2) mg/dL Total Bilirubin 0.4 (0.0-1.0) mg/dL AST 36 H (5-31) U/L ALT 23 (0-31) U/L Alkaline Phosphatase 73 (39-117) U/L C-Reactive Protein 0.67 H (< or = 0.50) mg/dL Total Protein 7.3 (6.5-8.0) g/dL Albumin 3.9 (3.5-5.0) g/dL Independent Interpretation I performed an independent interpretation of an: Plain X-Ray and Ultrasound Radiology Impression Discussion of test interpretation with radiology: I have reviewed the radiologist's reading. Radiologist Impression: The visualized deep veins are fully compressible with normal Doppler color flow and spectral tracings. No popliteal cyst. IMPRESSION: 1. Negative for left lower extremity deep vein thrombosis. No fractures or dislocations. No joint effusion. There is soft tissue edema. No significant arthritic change. No radiopaque foreign body. Critical Care Time Critical Care Time Critical Care Time: Yes Total Critical Care Time: 35 Attestation: I have personally provided critical care time. Time includes review of lab data, radiology results, discussion with consultants, and monitoring for potential decompensation. Intervention performed as documented. Discharge Plan Discharge Clinical Impression: Cellulitis, Noncompliance with medication regimen, Chronic deep vein thrombosis (DVT) Patient Disposition: Home, Self-Care Instructions: Cellulitis (ED), Safe Use of Anticoagulants (ED) Additional Instructions: Please stop taking Eliquis and start taking Xarelto. Please have close follow- up with your primary care physician. Please follow-up with your primary care physician tomorrow. If you have any worsening or new symptoms, please return to the emergency room or call 911 Prescriptions: New cephalexin 500 mg capsule 500 mg PO BID Qty: 14 0RF doxycycline hyclate 100 mg capsule 100 mg PO BID Qty: 14 0RF Xarelto DVT-PE Treat 30d Start 15 mg (42)- 20 mg (9) tablets,dose pack See Rx Instructions .ROUTE .COMPLEX Qty: 51 0RF Rx Instructions: take one-15 mg tablet twice daily for 21 days, then one-20 mg tablet once daily; must take with meal/food No Action methadone [Methadone Intensol] 10 mg/mL Concentrate 45 mg PO DAILY Patient Comments: Take away bottle through 02/10/25 nicotine 21 mg/24 hr Patch 24 Hour 21 mg transdermal DAILY PRN (Reason: smoking cessation) 30 Days Qty: 28 0RF nicotine (polacrilex) 2 mg Gum 4 mg buccal Q2H PRN (Reason: Nicotine Cravings) 30 Days Qty: 120 0RF Eliquis 5 mg Tablet 5 mg PO BID 30 Days Qty: 60 0RF prazosin 1 mg Capsule 1 mg PO BEDTIME 30 Days Qty: 30 0RF Protocol: Hold for SBP< HOLD for SBP < : 90 fluoxetine 20 mg Capsule 20 mg PO DAILY 30 Days Qty: 30 0RF hydroxyzine HCl 25 mg Tablet 25 mg PO Q6H PRN (Reason: mild anxiety) Qty: 30 0RF olanzapine 5 mg Tablet 5 mg PO TID PRN (Reason: agitation) Qty: 30 0RF quetiapine 100 mg Tablet 100 mg PO BEDTIME 30 Days Qty: 30 0RF trazodone 100 mg Tablet 100 mg PO BEDTIME PRN (Reason: Insomnia) Qty: 30 0RF famotidine 20 mg Tablet 20 mg PO DAILY 30 Days Qty: 30 0RF naloxone [Narcan] 4 mg/actuation spray,non-aerosol 4 mg intranasal Q2M PRN (Reason: opioid overdose) Qty: 2 0RF Rx Instructions: spray 1 dose into ONE nostril; alternate nostrils w each dose until help arrives Interventions: ED Discharge Assessment Last Done: 03/31/25 23:04 Discharge Date/Time: 03/31/25 23:07 Print Language: Faroese
[2025-03-31 20:45] LABS: MANUAL DIFF FLAG NO
[2025-03-31 20:47] LABS: Hematocrit 37.8 % (37.0-47.0); Hemoglobin 12.7 g/dl (12.0-16.0); Imm Gran Abs Auto 0.01 X10*3/uL (0.00-0.03); Imm Gran Pct Auto 0.2 % (0.0-0.4); Lymphocytes Absolute Auto 1.2 X10*3/uL (1.2-4.9); Mean Corpuscular HGB Conc 33.6 g/dl (31.0-35.0); Mean Corpuscular Hemoglobin 29.0 pg (27.0-33.0); Mean Corpuscular Volume 86.3 fL (80.0-98.0); NRBC Abs Auto 0.000 X10*3/uL (0.0-0.012); NRBC Pct Auto 0.0 /100WBC (0.0-0.2); Platelet Count 193 X10*3/uL (160-400); Red Blood Count 4.38 X10*6/uL (4.20-5.50); White Blood Count 4.3 X10*3/uL (4.8-10.8)
[2025-03-31 21:04] LABS: Alanine Aminotransferase 23 U/L (0-31); Albumin Level 3.9 g/dL (3.5-5.0); Alkaline Phosphatase 73 U/L (39-117); Anion Gap 12 (12-20); Aspartate Amino Transferase 36 U/L (5-31); Blood Urea Nitrogen 19 mg/dL (9-16); Calcium 8.9 mg/dL (8.4-10.2); Carbon Dioxide 25 mmol/L (22-29); Chloride 110 mmol/L (96-108); Creatinine Clr Calc Pharmacy 71.9; Estimated Glomerular Filt Rate > 60; Potassium 4.3 mmol/L (3.3-5.1); Sodium 143 mmol/L (135-145); Total Protein 7.3 g/dL (6.5-8.0)
[2025-03-31 21:08] LABS: INTERNATIONAL NORM RATIO 1.0 (0.9-1.1); Prothrombin Time 11.6 SEC (10.9-12.4)
[2025-03-31 21:11] LABS: Partial Thromboplastin Time 22.1 SEC (26.0-36.8)
[2025-03-31 21:26] VITALS: BP 101/64; PULSE 70; RESP 16; TEMP 36.6; O2SAT 97
[2025-03-31 23:04] VITALS: BP 101/64; PULSE 70; RESP 16; TEMP 36.6; O2SAT 97
== END 2025-03-31 23:07 | disposition home or self-care (01) ==
PROVIDERS: Physician Assistant; Emergency Provider Emergency Medicine; PCP Internal Medicine
DX: L03.116 Cellulitis of left lower limb (principal); Z86.718 Personal history of other venous thrombosis and embolism; Z91.148 Patient's other noncompliance with medication regimen for other reason; F11.20 Opioid dependence, uncomplicated; F17.210 Nicotine dependence, cigarettes, uncomplicated
CPT/HCPCS: 36415; 73590; 80053; 85025; 85610; 85652; 85730; 86140; 93971; 99283; 99284

== ENCOUNTER → 2025-03-31 20:00 | Outpatient (BNV) | payer MEDICAID, SELFPAY | PROVIDERS: PCP Internal Medicine; Visit Provider Nuclear Medicine | DX: R22.42 Localized swelling, mass and lump, left lower limb (principal); M79.605 Pain in left leg | CPT/HCPCS: 73590; 93971 ==

== ENCOUNTER 2025-04-02 14:18 | Outpatient (REF) | payer MEDICAID, SELFPAY ==
--- OUTSIDE RECORDS SUMMARY | 2025-04-02 14:23 | XMS_ITS | Clinical Summary ---
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 Role Phone Unavailable Primary Care Provider [...] 1973 FIT 1973 FOBT 1973 Sigmoidoscopy 1973 Disability Screening 1973 Alcohol/Substance Use Screening 1985 Tobacco Screening 1985 Family Planning (PISQ) 1988 DTaP/Tdap/Td Vaccines (1 - Tdap) 1992 Hepatitis B Vaccines (1 of 3 - 19+ 3-dose series) 1992 Pap Smear 1994 Cervical Cancer Screening 2003 HPV/Cotest 2003 Mammogram 2013 Pneumococcal Vaccine: 50+ Ye ars (1 of 1 - PCV) 2023 Zoster Vaccines (1 of 2) 2023 COVID-19 Vaccine (1 - 2023-2 5 season) 2024 Influenza Vaccine (#1) 2025 RSV Patients and Pa tients Aged 60 [...] patient's age to complete this topic Meningococcal B Vaccine Aged Out No l onger eligible based on patient's age to complete [...]
[2025-04-02 16:11] LABS: MANUAL DIFF FLAG NO
[2025-04-02 16:38] LABS: Hematocrit 38.2 % (37.0-47.0); Hemoglobin 12.4 g/dl (12.0-16.0); Imm Gran Abs Auto 0.01 X10*3/uL (0.00-0.03); Imm Gran Pct Auto 0.3 % (0.0-0.4); Lymphocytes Absolute Auto 1.3 X10*3/uL (1.2-4.9); Mean Corpuscular HGB Conc 32.5 g/dl (31.0-35.0); Mean Corpuscular Hemoglobin 28.5 pg (27.0-33.0); Mean Corpuscular Volume 87.8 fL (80.0-98.0); NRBC Abs Auto 0.000 X10*3/uL (0.0-0.012); NRBC Pct Auto 0.0 /100WBC (0.0-0.2); Platelet Count 215 X10*3/uL (160-400); Red Blood Count 4.35 X10*6/uL (4.20-5.50); White Blood Count 3.9 X10*3/uL (4.8-10.8)
[2025-04-02 16:45] LABS: Alanine Aminotransferase 31 U/L (0-31); Albumin Level 3.8 g/dL (3.5-5.0); Alkaline Phosphatase 73 U/L (39-117); Anion Gap 10 (12-20); Aspartate Amino Transferase 33 U/L (5-31); Blood Urea Nitrogen 17 mg/dL (9-16); Calcium 8.7 mg/dL (8.4-10.2); Carbon Dioxide 26 mmol/L (22-29); Chloride 110 mmol/L (96-108); Cholesterol 176 mg/dL (<200); Estimated Glomerular Filt Rate > 60; HDL Cholesterol 42 mg/dL (>40); Potassium 4.0 mmol/L (3.3-5.1); Sodium 142 mmol/L (135-145); Total Protein 7.0 g/dL (6.5-8.0); Triglycerides 257 mg/dL (<150)
== END 2025-04-02 14:19 | disposition home or self-care (01) ==
LOC: HO.HHCL 14:18
PROVIDERS: PCP Internal Medicine; Visit Provider Internal Medicine
DX: F21 Schizotypal disorder (principal); I82.493 Acute embolism and thrombosis of other specified deep vein of lower extremity, bilateral; M75.42 Impingement syndrome of left shoulder; Z72.0 Tobacco use
CPT/HCPCS: 36415; 80053; 80061; 85025